=== PATIENT | female | born 1965 | race Caucasian/White ===

== ENCOUNTER → 2016-08-20 | Outpatient (CLI) | payer OTHER ==
[2016-08-20 10:19] LABS: CHLORIDE,CL 106 mmol/L (98-110); SODIUM,NA 138 mmol/L (136-146)
== END ==
LOC: MW.CHIM 09:08
PROVIDERS: ATTEND Internal Medicine
DX: R10.9 Unspecified abdominal pain (principal)
CPT/HCPCS: 36415; 80048; 85025; 86677

== ENCOUNTER → 2016-08-31 | Outpatient (CLI) | payer OTHER ==
[~2016-08-31] MED LIST: Iopamidol 755 MG/ML 500 ML Multipack Bottle IVPUSH STA
--- NOTE | 2016-08-31 15:42 | CT ---
CT of the abdomen and pelvis with contrast. HISTORY: Pain TECHNIQUE: Axial CT images were obtained of the abdomen and pelvis following administration of 100 m L of Isovue-370 in the right arm without complication. Coronal and sagittal reconstructions obtained . FINDINGS: The lungs are clear without focal consolidation. There is a 1.5 cm lobulated nodule within the media l right lower lobe, grossly unchanged in size. There is also a tiny subpleural nodule within the lef t lung base, stable. The liver has a mildly nodular contour, otherwise no focal irregularity. The spleen, adrenal glands, and pancreas appear normal. The gallbladder is unremarkable. There is no bulky retroperitoneal lymp hadenopathy or abdominal ascites. The kidneys enhance and function symmetrically without evidence of obstructive uropathy. The large and small bowel are normal in caliber without evidence of obstruction. The appendix appea rs normal. There is no pericolonic inflammation or stranding. There is no bulky pelvic lymphadenopat hy or free pelvic fluid. The urinary bladder is normal. The uterus appears normal. Postsurgical changes are noted within the lower lumbar spine. No suspicious osseous abnormalities de monstrated. IMPRESSION: 1. No acute findings demonstrated within the abdomen or pelvis. 2. Nodular appearing liver, correlate for cirrhosis. 3. Postsurgical changes noted within the lumbar spine. 4. Stable bilateral basilar pulmonary nodules.
--- NOTE | 2016-08-31 16:50 | MR ---
EXAMINATION: MR of the head without contrast. TECHNIQUE: Multiplanar and multisequence imaging of the head without intravenous contrast. Diffusion weighted sequences were performed. HISTORY: Dizziness. FINDINGS: The cerebral hemispheres and deep nuclei are without hemorrhage, mass, edema or atrophy. Small very subtle T2 FLAIR hyperintensities in the white matter likely small areas of chronic ischemia. No evid ence for restricted diffusion. No extraaxial collections or hemorrhage. The ventricular system is of normal size and configuration without hydrocephalus. The brainstem and cerebellum are without hemorrhage, mass, edema, gliosis or atrophy. The carotid basilar artery flow voids are intact. There is a trace fluid within the right mastoid ai r cells. No internal auditory canal or cerebellopontine angle masses. Paranasal sinuses are clear. The craniocervical junction is unremarkable without Chiari malformatio n. IMPRESSION: 1. No acute intracranial findings demonstrated. 2. Trace fluid within the right mastoid air cells, likely an effusion. 3. Minimal small vessel ischemic changes.
== END ==
LOC: MW.DI 11:33
PROVIDERS: ATTEND Internal Medicine
DX: R42 Dizziness and giddiness (principal); R20.0 Anesthesia of skin; Z98.890 Other specified postprocedural states; R91.1 Solitary pulmonary nodule
CPT/HCPCS: 74177; Q9967; 70551; 70551-26

== ENCOUNTER → 2016-09-03 | Outpatient (CLI) | payer OTHER | LOC: MW.CHIM 08:42 | PROVIDERS: ATTEND Internal Medicine | DX: R19.7 Diarrhea, unspecified (principal) | CPT/HCPCS: 83630; 87046; 87324; 87899 ==

== ENCOUNTER → 2016-09-14 | Outpatient (CLI) | payer OTHER ==
--- NOTE | 2016-09-15 09:42 | CR ---
EXAMINATION: Pelvis and bilateral hips HISTORY: Pain COMPARISON: CT abdomen and pelvis dated 08/31/2016 TECHNIQUE: AP pelvis and 2 views of the hips bilaterally. FINDINGS: There is no acute osseous abnormality, dislocation, or fracture. Bone mineralization and j oint spaces appear grossly preserved. Mild subchondral sclerosis and cystic changes noted within the acetabulum bilaterally. Degenerative changes are noted within the lower lumbar spine. SI joints are symmetric. Bone mineralization is normal. IMPRESSION: 1. Mild degenerative changes within the hips bilaterally without acute findings.
== END ==
LOC: MW.CHORTHO 07:50
PROVIDERS: ATTEND Orthopaedic Surgery
DX: M25.552 Pain in left hip (principal); M25.551 Pain in right hip
CPT/HCPCS: 73522; 73522-26

== ENCOUNTER → 2016-09-20 | Outpatient (CLI) | payer OTHER ==
[2016-09-20 16:02] LABS: CHLORIDE,CL 104 mmol/L (98-110); SODIUM,NA 141 mmol/L (136-146)
--- NOTE | 2016-09-20 16:47 | CR ---
EXAMINATION: Abdomen HISTORY: Pain COMPARISON: CT dated 08/31/2016. TECHNIQUE: AP and upright views of the abdomen. FINDINGS: There is a moderate amount of stool throughout the colon and rectum without evidence of a small bowel obstruction. No free air under the diaphragm. No abnormal calcifications project over th e kidneys. Bilateral posterior fusion hardware is noted from L4 to S1. The visualized osseous struct ures otherwise appear normal. IMPRESSION: Moderate amount of stool and gas throughout the colon consistent with constipation.
== END ==
LOC: MW.CHIM 15:21
PROVIDERS: ATTEND Internal Medicine
DX: R10.9 Unspecified abdominal pain (principal); R14.3 Flatulence
CPT/HCPCS: 36415; 74020; 74020-26; 80048; 82550; 83735

== ENCOUNTER → 2016-11-09 | Outpatient (CLI) | payer OTHER ==
--- NOTE | 2016-11-09 16:27 | US ---
EXAMINATION: Transabdominal pelvic ultrasound HISTORY: Pelvic and perineal pain COMPARISON: CT dated 08/31/2016 TECHNIQUE: Grayscale, color Doppler, spectral Doppler images obtained transabdominally. FINDINGS: The uterus appears normal in size, contour, and echogenicity without a focal uterine mass. The medial stripe thickness is not well characterized. No significant free pelvic fluid. Both the l eft and right ovaries are normal in size and contour demonstrating normal color and spectral Doppler flow. No obvious adnexal mass. IMPRESSION: 1. Grossly unremarkable transabdominal pelvic ultrasound.
== END ==
LOC: MW.US 13:17
PROVIDERS: ATTEND Internal Medicine
DX: R10.2 Pelvic and perineal pain (principal)
CPT/HCPCS: 76856; 76856-26

== ENCOUNTER 2017-07-23 19:35 | Emergency (ER) | payer OTHER ==
--- NOTE | 2017-07-23 20:01 | EDM.PDOC ---
ED HPI GENERAL MEDICAL PROBLEM - General Chief Complaint: Back Pain or Injury Stated Complaint: FALL/BACK PAIN Time Seen by Provider: 07/23/17 19:41 Source of Information: Reports: Patient History Limitations: Reports: No Limitations - History of Present Illness INITIAL COMMENTS - FREE TEXT/NARRATIVE: HISTORY AND PHYSICAL: History of present illness: Patient is a 52-year-old female who presents to the emergency room with complaints of low back pain, bilateral hip pain, and left shoulder pain post fall. She states last night she slipped and fell on the ice landing on her left side. Since that time has increasingly worsening pain in the left shoulder, bilateral hips and low back. She does have a history of lumbar spinal surgery, which she wears a brace for her daily. Took 2 tablets of Dallas at 4:30 this afternoon, left over from her surgery - which has helped somewhat. She denies hitting her head or any loss of consciousness. Review of systems: As per history of present illness and below otherwise all systems reviewed and negative. Past medical history: As per history of present illness and as reviewed below otherwise noncontributory. Surgical history: As per history of present illness and as reviewed below otherwise noncontributory. Social history: No reported history of drug or alcohol abuse. Family history: As per history of present illness and as reviewed below otherwise noncontributory. Physical exam: General: Well-developed and well-nourished 52-year-old female. Alert and oriented. Nontoxic appearing and in no acute distress HEENT: Atraumatic, normocephalic, pupils reactive, negative for conjunctival pallor or scleral icterus, mucous membranes moist, throat clear, neck supple, nontender, trachea midline. Lungs: Clear to auscultation, breath sounds equal bilaterally, chest nontender. Heart: S1S2, regular rate and rhythm Abdomen: Soft, nondistended, nontender. Negative for masses or hepatosplenomegaly. Negative for costovertebral tenderness. Pelvis: Stable nontender. Genitourinary: Deferred. Rectal: Deferred. C-spine/Back: No pinpoint vertebral tenderness upon palpation. Fully ambulatory. Extremities: Moves all extremities per self, pain with range of motion and palpation to the left shoulder. Neurovascular unremarkable. Neuro: Awake, alert, oriented. Cranial nerves II through XII unremarkable. Cerebellum unremarkable. Motor and sensory unremarkable throughout. Exam nonfocal. Patient does have Ultram, Flexeril, Dallas available to her for home use. 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 Imaging of the pelvis and left shoulder are negative. Cervical x-ray shows mild degenerative changes but nothing acute. Lumbar x-ray shows equipment in expected location. There is no radiographic evidence for complication. No soft tissue mass by plain film.Moderate constipation. Degenerative disc disease is most evident at L2-L3. Diagnostics: Xray of the pelvis, left shoulder, c-spine, lumbar spine Therapeutics: Ice Impression: #1 Fall #2 Back Pain #3 Contusion #4 Constipation Plan: 1. Please use the Dallas, Ultram, and Flexeril that you have prescribed for you. Ice to the area for the first 24 hours. Then may alternate heat/ice for comfort. Gentle stretching. Continue to wear your back brace for comfort and support. Avoid any vigorous activities which will cause increased pain. 2. Follow up with her primary care provider next week. Return to the ED as needed and as discussed. Definitive disposition and diagnosis as appropriate pending reevaluation and review of above. Duration: Day(s): Location: Reports: Back, Upper Extremity, Left lower back Pain Score (Numeric/FACES): 8 - Related Data Allergies Allergy/AdvReac Type Severity Reaction Status Date / Time amitriptyline Allergy Rash Verified 07/23/17 19:48 aspirin Allergy Nausea Verified 07/23/17 19:48 azithromycin Allergy Swelling Verified 07/23/17 19:48 [From Zithromax Z-Paul] ciprofloxacin Allergy Rash Verified 07/23/17 19:48 codeine Allergy Nausea Verified 07/23/17 19:48 erythromycin base Allergy Rash Verified 07/23/17 19:48 [Erythromycin Base] ibuprofen Allergy Nausea Verified 07/23/17 19:48 Penicillins Allergy Rash Verified 07/23/17 19:48 Sulfa (Sulfonamide Allergy Rash Verified 07/23/17 19:48 Antibiotics) tizanidine [Tizanidine] Allergy Rash Verified 07/23/17 19:48 Home Meds: Home Meds Albuterol [Ventolin HFA] 2 puff INH Q4H PRN 11/08/13 [History] Baclofen [Lioresal] 20 mg PO TID 11/08/13 [History] Cyclobenzaprine [Flexeril] 10 mg PO DAILY PRN 11/08/13 [History] Docusate Sodium [Dok] 100 mg PO ASDIRECTED PRN 11/08/13 [History] EPINEPHrine [Epipen] 0.3 mg IM ASDIRECTED PRN 11/08/13 [History] Gabapentin [Neurontin] 600 mg PO QID 11/08/13 [History] Multivitamin [Multivitamins] 1 each PO DAILY 11/08/13 [History] Promethazine [Phenergan] 0 mg PO ASDIRECTED PRN 11/08/13 [History] Rizatriptan [Maxalt] 10 mg PO ASDIRECTED PRN 11/08/13 [History] SUMAtriptan Succinate [Imitrex] 100 mg PO ASDIRECTED PRN 11/08/13 [History] Triamterene/Hydrochlorothiazid [Triamterene-HCTZ 75-50 MG] 1 each PO DAILY 11/08 [History] traMADol [Ultram ER] 100 mg PO Q4HR 11/08/13 [History] traZODone HCl [Trazodone HCl] 50 mg PO ASDIRECTED PRN 11/08/13 [History] Benzonatate [Tessalon Perle] 0 mg PO ASDIRECTED PRN 05/17/14 [History] Nitrofurantoin [place]/Macrocryst [Macrobid] 100 mg PO BID #10 cap 07/18/15 [Rx] Past Medical History HEENT History: Reports: Hard of Hearing Cardiovascular History: Reports: Hypertension Respiratory History: Reports: Bronchitis, Recurrent Other Gastrointestinal History: opoiod induced constipation Genitourinary History: Reports: UTI, Recurrent 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: Musculoskeletal History: Reports: Back Pain, Chronic, Fracture, Osteoarthritis Other Musculoskeletal History: fx lower back Neurological History: Reports: Cerebral Palsy, Concussion, Migraines Psychiatric History: Reports: Depression - Infectious Disease History Infectious Disease History: Reports: Chicken Pox, Hepatitis C, Measles - Past Surgical History HEENT Surgical History: Reports: None Cardiovascular Surgical History: Reports: None Respiratory Surgical History: Reports: None GI Surgical History: Reports: None Female Surgical History: Reports: Section Neurological Surgical History: Reports: None Musculoskeletal Surgical History: Reports: None Social & Family History - Family History Family Medical History: Noncontributory - Tobacco Use Smoking Status *Q: Current Every Day Smoker Years of Tobacco use: 1 Packs/Tins Daily: 0.5 - Caffeine Use Caffeine Use: Reports: Coffee - Alcohol Use Days Per Week of Alcohol Use: 6 Number of Drinks Per Day: 1 Total Drinks Per Week: 6 - Recreational Drug Use Recreational Drug Use: No ED ROS GENERAL - Review of Systems Review Of Systems: ROS reveals no pertinent complaints other than HPI. ED EXAM,LOWER BACK PAIN/INJURY - Physical Exam Exam: See Below (See dictation) Course - Vital Signs Last Recorded V/S: Last Vital Signs Temp 96.8 F 07/23/17 19:44 Pulse 105 H 07/23/17 19:44 Resp 19 07/23/17 19:44 BP 120/69 07/23/17 19:44 Pulse Ox 97 07/23/17 19:44 - Orders/Labs/Meds Orders: Active Orders 24 hr Category Date Time Status Cervical Spine 2V or 3V [CR] Stat Exams 07/23/17 19:53 Taken Lumbar Spine 2 or 3V [CR] Stat Exams 07/23/17 19:53 Taken Pelvis 1V or 2V [CR] Stat Exams 07/23/17 19:53 Taken Shoulder Comp Lt [CR] Stat Exams 07/23/17 19:53 Taken Departure - Departure Time of Disposition: 21:14 Disposition: Home, Self-Care 01 Clinical Impression: Fall Qualifiers: Encounter type: initial encounter Qualified Code(s): W19.XXXA - Unspecified fall, initial encounter Contusion Qualifiers: Encounter type: initial encounter Contusion area: lower back Qualified Code(s) : S30.0XXA - Contusion of lower back and pelvis, initial encounter Back pain Qualifiers: Back pain location: low back pain Chronicity: unspecified Back pain laterality : midline Sciatica presence: without sciatica Qualified Code(s): M54.5 - Low back pain Constipation Qualifiers: Constipation type: unspecified constipation type Qualified Code(s): K59.00 - Constipation, unspecified - Discharge Information Referrals: PCP,None [Primary Care Provider] - Forms: ED Department Discharge Additional Instructions: My general discharge The following information is given to patients seen in the emergency department who are being discharged to home. This information is to outline your options for follow-up care. We provide all patients seen in our emergency department with a follow-up referral. The need for follow-up, as well as the timing and circumstances, are variable depending upon the specifics of your emergency department visit. If you don't have a primary care physician on staff, we will provide you with a referral. We always advise you to contact your personal physician following an emergency department visit to inform them of the circumstance of the visit and for follow-up with them and/or the need for any referrals to a consulting specialist. The emergency department will also refer you to a specialist when appropriate. This referral assures that you have the opportunity for follow-up care with a specialist. All of these measure are taken in an effort to provide you with optimal care, which includes your follow-up. Under all circumstances we always encourage you to contact your private physician who remains a resource for coordinating your care. When calling for follow-up care, please make the office aware that this follow-up is from your recent emergency room visit. If for any reason you are refused follow-up, please contact the [facility] Emergency Department at and asked to speak to the emergency department charge nurse. [facility] [address] [place] [address] 1. Please use the Dallas, Ultram, and Flexeril that you have prescribed for you. Ice to the area for the first 24 hours. Then may alternate heat/ice for comfort. Gentle stretching. Continue to wear your back brace for comfort and support. Avoid any vigorous activities which will cause increased pain. 2. Follow up with her primary care provider next week. Return to the ED as needed and as discussed. - My Orders Last 24 Hours: My Active Orders 07/23/17 19:53 Cervical Spine 2V or 3V [CR] Stat Lumbar Spine 2 or 3V [CR] Stat Pelvis 1V or 2V [CR] Stat Shoulder Comp Lt [CR] Stat - Assessment/Plan Last 24 Hours: My Active Orders 07/23/17 19:53 Cervical Spine 2V or 3V [CR] Stat Lumbar Spine 2 or 3V [CR] Stat Pelvis 1V or 2V [CR] Stat Shoulder Comp Lt [CR] Stat
[2017-07-23 22:06] VITALS: BP 169/80
--- NOTE | 2017-07-25 15:05 | CR ---
EXAM DATE: 07/23/17 PATIENT'S AGE: 52 Patient: AUGUSTUS PATTON Facility: [place], [place] Site . Site : 1965 Study: XRay Shoulder Left [id number]/3/2018 8:34:39 PM Ordering Physician: Doctor Tomlin Final Report: INDICATION: fall INDICATION: Fall. TECHNIQUE: Left shoulder, three views. COMPARISON: None FINDINGS: Bones: Alignment is normal. No fractures or bone lesions. Joint spaces: Unremarkable. Soft tissues: Unremarkable. IMPRESSION: 1. No acute bone abnormality. 2. No dislocation on the transscapular Y radiograph. 3. No displaced rib fracture or pneumothorax. Dictated by Garrison Hanley MD @ 07/23/2017 8:50:39 PM Dictated by: Garrison Hanley MD @ 07/23/2017 20:50:45 (Electronic Signature) Report Signed by Proxy. MTDElza
--- NOTE | 2017-07-25 15:11 | CR ---
EXAM DATE: 07/23/17 PATIENT'S AGE: 52 Patient: AUGUSTUS PATTON Facility: [place], [place] Site . Site : 1965 Study: XRay Spine Cervical [id number]/3/2018 8:35:23 PM Ordering Physician: Doctor Tomlin Final Report: INDICATION: Fall. COMPARISON: None. FINDINGS/IMPRESSION: No fracture, malalignment, or other definite acute abnormalities identified in the cervical spine. Postoperative changes of anterior cervical fusion at C6-7. Scattered mild degenerative changes. Unremarkable prevertebral soft tissues. Dictated by Mata Nix MD @ 07/23/2017 9:04:55 PM Dictated by: Mata Nix MD @ 07/23/2017 21:05:41 (Electronic Signature) Report Signed by Proxy. LEONOR
--- NOTE | 2017-07-25 15:16 | CR ---
EXAM DATE: 07/23/17 PATIENT'S AGE: 52 Patient: AUGUSTUS PATTON Facility: [place], [place] Site . Site : 1965 Study: XRay Spine Lumbar [id number]/3/2018 8:37:14 PM Ordering Physician: Doctor Tomlin Final Report: INDICATION: fall HISTORY: Fall. COMPARISON: 04/18/2012. TECHNIQUE: Lumbar spine, 3 views. FINDINGS: Five lumbar type vertebral bodies are demonstrated on this exam. Postoperative changes of a spinal fusion from L4 through S1. Transpedicular screws, interconnecting rods, and interbody spacers are in expected location. There is no radiographic evidence for complication. No soft tissue mass by plain film. There are no suspicious calcifications. Moderate constipation. Degenerative disc disease is most evident at L2-L3. IMPRESSION: 1. No acute bone abnormality. 2. Postoperative changes of a spinal fusion from L4 through S1. Alignment is anatomic. Dictated by Garrison Hanley MD @ 07/23/2017 9:20:49 PM Dictated by: Garrison Hanley MD @ 07/23/2017 21:20:55 (Electronic Signature) Report Signed by Proxy. [facility] HOSPITALElza
--- NOTE | 2017-07-25 15:17 | CR ---
EXAM DATE: 07/23/17 PATIENT'S AGE: 52 Patient: AUGUSTUS PATTON Facility: [place], [place] Site . Site : 1965 Study: XRay Pelvis [id number]/3/2018 8:37:44 PM Ordering Physician: Doctor Tomlin Final Report: INDICATION: fall PELVIS Comparison: No previous studies are currently available for comparison. No fractures or destructive lesions of bone are identified. No hip dislocation is evident. No significant hip arthritic changes are demonstrated. Postop changes are seen in the lower lumbar spine. Included soft tissues show no significant findings. IMPRESSION: No significant abnormality identified. HANNA EDWARDS MD [employer] Dictated by: Mata Edwards MD @ 07/23/2017 20:54:22 (Electronic Signature) Report Signed by Proxy. [facility]
== END 2017-07-23 22:15 | disposition home or self-care (01) ==
LOC: MW.ED 19:35
DX: S30.0XXA Contusion of lower back and pelvis, initial encounter (principal); K59.00 Constipation, unspecified; I10 Essential (primary) hypertension; F17.210 Nicotine dependence, cigarettes, uncomplicated; Z88.6 Allergy status to analgesic agent; Z88.1 Allergy status to other antibiotic agents; Z88.5 Allergy status to narcotic agent; Z88.0 Allergy status to penicillin; Z88.2 Allergy status to sulfonamides; Z88.8 Allergy status to other drugs, medicaments and biological substances; Z79.899 Other long term (current) drug therapy; W00.9XXA Unspecified fall due to ice and snow, initial encounter
CPT/HCPCS: 72040; 72040-26; 72100; 72100-26; 72170; 72170-26; 73030-26-LT; 73030-LT; 99283

== ENCOUNTER 2018-08-03 07:35 | Emergency (ER) | payer OTHER, MEDICAID ==
[2018-08-03] MEDS ORDERED: HYDROmorphone 2 MG/ML SDV IM ONE (08:01)
[2018-08-03] MEDS ORDERED: HYDROmorphone 1 MG/ML Syringe IM ONE (08:06)
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
[2018-08-03] MEDS ORDERED: LORazepam 1 MG Tab PO ONE (08:42)
[2018-08-03 09:22] LABS: CHLORIDE,CL 105 mmol/L (98-107); SODIUM,NA 140 mmol/L (136-145)
[2018-08-03 11:16] VITALS: BP 109/57
== END 2018-08-03 10:46 | disposition home or self-care (01) ==
LOC: MW.ED 07:35
DX: M62.838 Other muscle spasm (principal); I10 Essential (primary) hypertension; G80.9 Cerebral palsy, unspecified; Z88.1 Allergy status to other antibiotic agents; Z88.5 Allergy status to narcotic agent; Z88.2 Allergy status to sulfonamides; Z79.899 Other long term (current) drug therapy
CPT/HCPCS: 36415; 80053; 81001; 83605; 85025; 96372; 99283; A9270; J1170

== ENCOUNTER 2018-08-05 20:48 | Inpatient (IN) | payer OTHER, MEDICAID ==
[2018-08-05] MEDS ORDERED: Sodium Chloride 0.9% 1,000 ML IV ONE (20:53)
--- NOTE | 2018-08-05 20:55 | EDM.PDOC ---
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 Past medical history: As per history of present illness and as reviewed below otherwise noncontributory. Surgical history: As per history of present illness and as reviewed below otherwise noncontributory. Social history: No reported history of drug or alcohol abuse. Family history: As per history of present illness and as reviewed below otherwise noncontributory. Physical exam: HEENT: Atraumatic, normocephalic, pupils reactive, negative for conjunctival pallor or scleral icterus, mucous membranes moist, throat clear, neck supple, nontender, trachea midline. Lungs: Clear to auscultation, breath sounds equal bilaterally, chest nontender. Heart: S1S2, regular, negative for clicks, rubs, or JVD. Abdomen: Soft, nondistended, nontender. Negative for masses or hepatosplenomegaly. Negative for costovertebral tenderness. Pelvis: Stable nontender. Genitourinary: Deferred. Rectal: Deferred. Extremities: Atraumatic, negative for cords or calf pain. Neurovascular unremarkable. Neuro: Awake, alert, oriented. Cranial nerves II through XII unremarkable. Cerebellum unremarkable. Motor and sensory unremarkable throughout. Exam nonfocal. Diagnostics: [BC CMP UA troponin chest [address] no contrast drug screen ] Therapeutics: [] 1 25 mL per hour Rocephin gram IV Impression: [] UTI Medication side effects-hallucination/ agitation chronic history of baseline Definitive disposition and diagnosis as appropriate pending reevaluation and review of above. - Related Data Allergies Allergy/AdvReac Type Severity Reaction Status Date / Time amitriptyline Allergy Rash Verified 08/05/18 20:56 aspirin Allergy Nausea Verified 08/05/18 20:56 azithromycin Allergy Swelling Verified 08/05/18 20:56 [From Zithromax Z-Paul] ciprofloxacin Allergy Rash Verified 08/05/18 20:56 codeine Allergy Nausea Verified 08/05/18 20:56 erythromycin base Allergy Rash Verified 08/05/18 20:56 [Erythromycin Base] ibuprofen Allergy Nausea Verified 08/05/18 20:56 Penicillins Allergy Rash Verified 08/05/18 20:56 Sulfa (Sulfonamide Allergy Rash Verified 08/05/18 20:56 Antibiotics) tizanidine [Tizanidine] Allergy Rash Verified 08/05/18 20:56 Home Meds: Home Meds Baclofen 10 mg PO TID 08/03/18 [History] Escitalopram [Lexapro] 1 tab DAILY 08/03/18 [History] Gabapentin [Neurontin] 800 mg PO QID 08/03/18 [History] Hydrocodone/Acetaminophen [Hydrocodon-Acetaminophn 10-325] 1 tab PO Q4H PRN [History] Meloxicam 15 mg PO DAILY 08/03/18 [History] Metaxalone [Metaxall] 800 mg PO QID PRN 08/03/18 [History] Pantoprazole Sodium [Protonix] 20 mg PO DAILY 08/03/18 [History] Promethazine [Phenergan] 25 mg PO Q4H PRN 08/03/18 [History] hydrOXYzine HCl [Atarax] 25 mg PO QID PRN 08/03/18 [History] oxyCODONE ER [OxyCONTIN] 10 mg PO BID 08/03/18 [History] oxyCODONE HCl [Oxycontin] 15 mg PO BID 08/03/18 [History] traMADol [Ultram] 100 mg PO Q6H PRN 08/03/18 [History] Past Medical History HEENT History: Reports: Hard of Hearing Cardiovascular History: Reports: Hypertension Respiratory History: Reports: Bronchitis, Recurrent Other Gastrointestinal History: opoiod induced constipation Genitourinary History: Reports: UTI, Recurrent [employer]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: Musculoskeletal History: Reports: Back Pain, Chronic, Fracture, Osteoarthritis Other Musculoskeletal History: fx lower back Neurological History: Reports: Cerebral Palsy, Concussion, Migraines, Neuropathy , Peripheral Psychiatric History: Reports: Depression - Infectious Disease History Infectious Disease History: Reports: Chicken Pox, Hepatitis C, Measles - Past Surgical History HEENT Surgical History: Reports: None Cardiovascular Surgical History: Reports: None Respiratory Surgical History: Reports: None GI Surgical History: Reports: None Female Surgical History: Reports: Section Neurological Surgical History: Reports: None Musculoskeletal Surgical History: Reports: None, Arthroscopic Procedure, Hip Replacement, Other (See Below) Other Musculoskeletal Surgeries/Procedures:: quadrapeligic Social & Family History - Family History Family Medical History: Noncontributory - Caffeine Use Caffeine Use: Reports: Coffee ED ROS GENERAL - Review of Systems Review Of Systems: See Below ED EXAM, GENERAL - Physical Exam Exam: See Below Course - Vital Signs Last Recorded V/S: Last Vital Signs Temp 97 F 08/05/18 20:48 Pulse 75 08/05/18 22:29 Resp 18 08/05/18 22:29 BP 120/82 08/05/18 22:29 Pulse Ox 98 08/05/18 22:29 - Orders/Labs/Meds Orders: Active Orders 24 hr Category Date Time Status CULTURE URINE [RM] Stat Lab 08/05/18 21:30 Received Sodium Chloride 0.9% [Normal Saline] 1,000 ml Med 08/06/18 00:15 Active IV STAT cefTRIAXone [Rocephin in Dextrose,Iso-Osm 1 GM/50 ML] 1 Med 08/06/18 00:15 Active gm Premix Bag 1 bag IV ONETIME Medication Orders Ceftriaxone Sodium/Dextrose 1 (gm/ Premix) 50 mls @ 100 mls/hr IV ONETIME ONE Stop: 08/06/18 00:44 Sodium Chloride (Normal Saline) 1,000 mls @ 125 mls/hr IV STAT ZACKARY Labs: Laboratory Tests 08/05/18 08/05/18 08/05/18 Range/Units 21:12 21:12 21:30 WBC 9.04 (4.0-11.0) K/uL RBC 4.65 (4.30-5.90) M/uL Hgb 14.3 (12.0-16.0) g/dL Hct 41.9 (36.0-46.0) % MCV 90.1 (80.0-98.0) fL MCH 30.8 (27.0-32.0) pg MCHC 34.1 (31.0-37.0) g/dL RDW Std Deviation 42.8 (28.0-62.0) fl RDW Coeff of Ros 13 (11.0-15.0) % Plt Count 133 L (150-400) K/uL MPV 9.10 (7.40-12.00) fL Neut % (Auto) 44.3 L (48.0-80.0) % Lymph % (Auto) 43.4 H (16.0-40.0) % [place] % (Auto) 9.2 (0.0-15.0) % Eos % (Auto) 2.7 (0.0-7.0) % Baso % (Auto) 0.4 (0.0-1.5) % Neut # (Auto) 4.0 (1.4-5.7) K/uL Lymph # (Auto) 3.9 H (0.6-2.4) K/uL [place] # (Auto) 0.8 (0.0-0.8) K/uL Eos # (Auto) 0.2 (0.0-0.7) K/uL Baso # (Auto) 0.0 (0.0-0.1) K/uL Nucleated RBC % 0.0 /100WBC Nucleated RBCs # 0 K/uL Sodium 140 (136-145) mmol/L Potassium 3.5 (3.5-5.1) mmol/L Chloride 106 (98-107) mmol/L Carbon Dioxide 23.3 (21.0-32.0) mmol/L BUN 22 H (7.0-18.0) mg/dL Creatinine 0.9 (0.6-1.0) mg/dL Est Cr Clr Drug Dosing TNP Estimated GFR (MDRD) > 60.0 ml/min Glucose 111 H (74-106) mg/dL Calcium 9.6 (8.5-10.1) mg/dL Total Bilirubin 0.5 (0.2-1.0) mg/dL AST 23 (15-37) IU/L ALT 14 (14-63) IU/L Alkaline Phosphatase 71 (46-116) U/L Troponin I < 0.050 (0.000-0.056) ng/mL Total Protein 7.5 (6.4-8.2) g/dL Albumin 3.5 (3.4-5.0) g/dL Globulin 4.0 (2.6-4.0) g/dL Albumin/Globulin Ratio 0.9 (0.9-1.6) Lipase 136 (73-393) U/L Urine Color DARK YELLOW Urine Appearance SLT CLOUDY Urine pH 5.0 (5.0-8.0) Ur Specific [place] >= 1.030 (1.001-1.035) Urine Protein TRACE H (NEGATIVE) mg/dL Urine Glucose (UA) NEGATIVE (NEGATIVE) mg/dL Urine Ketones TRACE H (NEGATIVE) mg/dL Urine Occult Blood NEGATIVE (NEGATIVE) Urine Nitrite POSITIVE H (NEGATIVE) Urine Bilirubin SMALL H (NEGATIVE) Urine Ictotest NEGATIVE Urine Urobilinogen 1.0 (<2.0) EU/dL Ur Leukocyte Esterase TRACE H (NEGATIVE) Urine RBC 1-2 (0-2/HPF) Urine WBC 5-7 (0-5/HPF) Ur Epithelial Cells FEW (NONE-FEW) Urine Bacteria 3+ H (NEGATIVE) Urine Opiates Screen (NEGATIVE) Ur Oxycodone Screen (NEGATIVE) Urine Methadone Screen (NEGATIVE) Ur Barbiturates Screen (NEGATIVE) Ur Phencyclidine Scrn (NEGATIVE) Ur Amphetamine Screen (NEGATIVE) U Methamphetamines Scrn (NEGATIVE) U Benzodiazepines Scrn (NEGATIVE) U Cocaine Metab Screen (NEGATIVE) U Marijuana (THC) Screen (NEGATIVE) 08/05/18 Range/Units 21:30 WBC (4.0-11.0) K/uL RBC (4.30-5.90) M/uL Hgb (12.0-16.0) g/dL Hct (36.0-46.0) % MCV (80.0-98.0) fL MCH (27.0-32.0) pg MCHC (31.0-37.0) g/dL RDW Std Deviation (28.0-62.0) fl RDW Coeff of Ros (11.0-15.0) % Plt Count (150-400) K/uL MPV (7.40-12.00) fL Neut % (Auto) (48.0-80.0) % Lymph % (Auto) (16.0-40.0) % [place] % (Auto) (0.0-15.0) % Eos % (Auto) (0.0-7.0) % Baso % (Auto) (0.0-1.5) % Neut # (Auto) (1.4-5.7) K/uL Lymph # (Auto) (0.6-2.4) K/uL [place] # (Auto) (0.0-0.8) K/uL Eos # (Auto) (0.0-0.7) K/uL Baso # (Auto) (0.0-0.1) K/uL Nucleated RBC % /100WBC Nucleated RBCs # K/uL Sodium (136-145) mmol/L Potassium (3.5-5.1) mmol/L Chloride (98-107) mmol/L Carbon Dioxide (21.0-32.0) mmol/L BUN (7.0-18.0) mg/dL Creatinine (0.6-1.0) mg/dL Est Cr Clr Drug Dosing Estimated GFR (MDRD) ml/min Glucose (74-106) mg/dL Calcium (8.5-10.1) mg/dL Total Bilirubin (0.2-1.0) mg/dL AST (15-37) IU/L ALT (14-63) IU/L Alkaline Phosphatase (46-116) U/L Troponin I (0.000-0.056) ng/mL Total Protein (6.4-8.2) g/dL Albumin (3.4-5.0) g/dL Globulin (2.6-4.0) g/dL Albumin/Globulin Ratio (0.9-1.6) Lipase (73-393) U/L Urine Color Urine Appearance Urine pH (5.0-8.0) Ur Specific [place] (1.001-1.035) Urine Protein (NEGATIVE) mg/dL Urine Glucose (UA) (NEGATIVE) mg/dL Urine Ketones (NEGATIVE) mg/dL Urine Occult Blood (NEGATIVE) Urine Nitrite (NEGATIVE) Urine Bilirubin (NEGATIVE) Urine Ictotest Urine Urobilinogen (<2.0) EU/dL Ur Leukocyte Esterase (NEGATIVE) Urine RBC (0-2/HPF) Urine WBC (0-5/HPF) Ur Epithelial Cells (NONE-FEW) Urine Bacteria (NEGATIVE) Urine Opiates Screen POSITIVE (NEGATIVE) Ur Oxycodone Screen POSITIVE (NEGATIVE) Urine Methadone Screen NEGATIVE (NEGATIVE) Ur Barbiturates Screen NEGATIVE (NEGATIVE) Ur Phencyclidine Scrn NEGATIVE (NEGATIVE) Ur Amphetamine Screen NEGATIVE (NEGATIVE) U Methamphetamines Scrn NEGATIVE (NEGATIVE) U Benzodiazepines Scrn POSITIVE (NEGATIVE) U Cocaine Metab Screen NEGATIVE (NEGATIVE) U Marijuana (THC) Screen NEGATIVE (NEGATIVE) Meds: Medications Generic Name Dose Route Start Last Admin Trade Name Freq PRN Reason Stop Dose Admin Ceftriaxone Sodium/Dextrose 1 50 mls @ 100 mls/hr 08/06/18 00:15 gm/ Premix IV 08/06/18 00:44 ONETIME ONE Sodium Chloride 1,000 mls @ 125 mls/hr 08/06/18 00:15 Normal Saline IV STAT ZACKARY Discontinued Medications Generic Name Dose Route Start Last Admin Trade Name Freq PRN Reason Stop Dose Admin Sodium Chloride 1,000 mls @ 999 mls/hr 08/05/18 20:53 08/05/18 21:09 Normal Saline IV 08/05/18 21:53 999 mls/hr STAT ONE Administration Lorazepam 1 mg 08/05/18 20:56 08/05/18 21:12 Ativan IVPUSH 08/05/18 20:57 1 mg ONETIME ONE Administration Departure - Departure Time of Disposition: 00:26 Disposition: Admitted As Inpatient 66 Condition: Fair Clinical Impression: UTI (urinary tract infection), Agitation - Discharge Information Forms: ED Department Discharge - My Orders Last 24 Hours: My Active Orders 08/05/18 21:30 CULTURE URINE [RM] Stat 08/06/18 00:15 Sodium Chloride 0.9% [Normal Saline] 1,000 ml IV STAT cefTRIAXone [Rocephin in Dextrose,Iso-Osm 1 GM/50 ML] 1 gm Premix Bag 1 bag IV ONETIME - Assessment/Plan Last 24 Hours: My Active Orders 08/05/18 21:30 CULTURE URINE [RM] Stat 08/06/18 00:15 Sodium Chloride 0.9% [Normal Saline] 1,000 ml IV STAT cefTRIAXone [Rocephin in Dextrose,Iso-Osm 1 GM/50 ML] 1 gm Premix Bag 1 bag IV ONETIME
[2018-08-05] MEDS ORDERED: LORazepam 2 MG/ML SDV IVPUSH ONE (20:56)
[2018-08-05 21:46] LABS: CHLORIDE,CL 106 mmol/L (98-107); SODIUM,NA 140 mmol/L (136-145)
--- NOTE | 2018-08-05 22:49 | CR ---
INDICATIONS: Chest pain, shortness of breath. COMPARISON: 05/20/2017. FINDINGS: Heart mediastinum are within normal limits for technique. Pulmonary vessels are not enlarged. No evidence of pneumothorax. Lungs are clear and are stable. Impression : No acute process demonstrated on this single portable chest radiograph. Dictated by Blake Quinteros MD @ Aug 05 2018 10:46PM Signed by Dr. Blake Quinteros @ Aug 05 2018 10:47PM
--- NOTE | 2018-08-05 23:24 | CT ---
INDICATION: headache TECHNIQUE: CT Head without i.v. contrast. COMPARISON: None FINDINGS: CSF space: The ventricles are normal for age. Brain: No evidence of mass, acute infarction or hemorrhage is seen. No mass-effect or midline shift is seen. The brain parenchyma is otherwise normal in appearance with preservation of the dale-white matter junction. Calvarium: The visualized paranasal sinuses are well aerated. The mastoid air cells are clear. The visualized orbits are grossly unremarkable. The calvarium is unremarkable in appearance with no fractures identified. IMPRESSION: 1. No evidence of acute infarction, intracranial hemorrhage, or mass-effect seen. Please note that all CT scans at this facility use dose modulation, iterative reconstruction, and/or weight-based dosing when appropriate to reduce radiation dose to as low as reasonably achievable. Dictated by: Martinez Eagle MD @ 08/05/2018 23:24:11 (Electronically Signed)
[2018-08-06] MEDS ORDERED: cefTRIAXone 1 GM in Premix Bag 1 BAG IV ONE (00:15)
[2018-08-06] MEDS ORDERED: Sodium Chloride 0.9% 1,000 ML IV SCH (00:15)
[2018-08-06] MEDS: Sodium Chloride 0.9% 1,000 ML IV SCH ×3 (01:45→20:18)
[2018-08-06] MEDS: Morphine 2 MG/ML Syringe IVPUSH PRN ×2 (06:36→08:22)
[2018-08-06 07:30] LABS: CHLORIDE,CL 108 mmol/L (98-107); SODIUM,NA 141 mmol/L (136-145)
[2018-08-06] MEDS ORDERED: Acetaminophen/HYDROcodone 325-10 MG Tab PO PRN (09:31)
[2018-08-06] MEDS: Gabapentin 800 MG Tab PO SCH ×4 (10:50→23:35)
[2018-08-06] MEDS: Nicotine 14 MG/24 Hr Patch TRDERM SCH (10:50)
[2018-08-06] MEDS ORDERED: Rizatriptan Benzoate [Rizatriptan] 10 MG PO PRN (12:34)
[2018-08-06] MEDS: Escitalopram 10 MG Tab PO SCH (13:26)
[2018-08-06] MEDS: oxyCODONE ER 20 MG TAB.ER PO SCH ×2 (13:26→20:16)
[2018-08-06] MEDS: Meloxicam 7.5 MG Tab PO SCH (13:27)
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
[2018-08-06] MEDS: Heparin Sodium 5,000 Units/ML Vial SUBCUT SCH ×2 (15:24→23:33)
[2018-08-06] MEDS: Promethazine 25 MG Tab PO PRN (20:17)
[2018-08-06] MEDS: cefTRIAXone 1 GM in Premix Bag 1 BAG IV SCH (23:32)
[2018-08-06] MEDS: hydrOXYzine HCl 25 MG Tab PO PRN (23:33)
[2018-08-07] MEDS: Sodium Chloride 0.9% 1,000 ML IV SCH ×3 (04:55→23:38)
[2018-08-07] MEDS: Gabapentin 800 MG Tab PO SCH ×4 (05:31→23:34)
[2018-08-07] MEDS: Heparin Sodium 5,000 Units/ML Vial SUBCUT SCH ×3 (05:31→21:32)
[2018-08-07 07:08] LABS: CHLORIDE,CL 110 mmol/L (98-107); SODIUM,NA 142 mmol/L (136-145)
[2018-08-07] MEDS: oxyCODONE ER 20 MG TAB.ER PO SCH ×2 (08:45→21:28)
[2018-08-07] MEDS: Nicotine 14 MG/24 Hr Patch TRDERM SCH (08:46)
[2018-08-07] MEDS: Meloxicam 7.5 MG Tab PO SCH (08:47)
[2018-08-07] MEDS: Pantoprazole 40 MG Tab.CR PO SCH (08:48)
[2018-08-07] MEDS: Escitalopram 10 MG Tab PO SCH (08:48)
[2018-08-07] MEDS: Acetaminophen/HYDROcodone 325-10 MG Tab PO PRN ×2 (12:11→23:42)
--- NOTE | 2018-08-07 12:21 | PCM.PN ---
- General Info Date of Service: 08/07/18 Subjective Update: Patient stated that she feels better than yesterday. Laying in bed does not appear to be in any acute distress at the moment. - Patient Data Vitals - Most Recent: Last Vital Signs Temp 36.1 C 08/07/18 07:31 Pulse 82 08/07/18 07:31 Resp 16 08/07/18 07:31 BP 131/69 08/07/18 07:31 Pulse Ox 97 08/07/18 07:31 Weight - Most Recent: 82 kg I&O - Last 24 Hours: Intake & Output 08/06/18 08/07/18 08/07/18 22:59 06:59 14:59 Intake Total [id number] Balance [id number] Lab Results Last 24 Hours: Laboratory Results - last 24 hr 08/07/18 08/07/18 Range/Units 06:25 06:25 WBC 4.52 (4.0-11.0) K/uL RBC 4.32 (4.30-5.90) M/uL Hgb 13.3 (12.0-16.0) g/dL Hct 39.3 (36.0-46.0) % MCV 91.0 (80.0-98.0) fL MCH 30.8 (27.0-32.0) pg MCHC 33.8 (31.0-37.0) g/dL RDW Std Deviation 43.0 (28.0-62.0) fl RDW Coeff of Ros 13 (11.0-15.0) % Plt Count 100 L (150-400) K/uL MPV 9.30 (7.40-12.00) fL Neut % (Auto) 40.0 L (48.0-80.0) % Lymph % (Auto) 46.5 H (16.0-40.0) % [place] % (Auto) 8.0 (0.0-15.0) % Eos % (Auto) 4.6 (0.0-7.0) % Baso % (Auto) 0.9 (0.0-1.5) % Neut # (Auto) 1.8 (1.4-5.7) K/uL Lymph # (Auto) 2.1 (0.6-2.4) K/uL [place] # (Auto) 0.4 (0.0-0.8) K/uL Eos # (Auto) 0.2 (0.0-0.7) K/uL Baso # (Auto) 0.0 (0.0-0.1) K/uL Nucleated RBC % 0.0 /100WBC Nucleated RBCs # 0 K/uL Sodium 142 (136-145) mmol/L Potassium 3.8 (3.5-5.1) mmol/L Chloride 110 H (98-107) mmol/L Carbon Dioxide 24.1 (21.0-32.0) mmol/L BUN 14 (7.0-18.0) mg/dL Creatinine 0.6 (0.6-1.0) mg/dL Est Cr Clr Drug Dosing TNP Estimated GFR (MDRD) > 60.0 ml/min Glucose 91 (74-106) mg/dL Calcium 9.0 (8.5-10.1) mg/dL Chace Results Last 24 Hours: Microbiology 08/05/18 21:30 Urine Culture - Final Urine, Clean Catch Escherichia Coli Med Orders - Current: Current Medications Hydrocodone Bitart/Acetaminophen ([place] 325-10 Mg) 1 tab PO Q8H PRN PRN Reason: Pain Last Admin: 08/07/18 12:11 Dose: 1 tab Escitalopram Oxalate (Lexapro) 20 mg PO DAILY [facility] Last Admin: 08/07/18 08:48 Dose: 20 mg Gabapentin (Neurontin) 800 mg PO QID [facility] Last Admin: 08/07/18 12:08 Dose: 800 mg Heparin Sodium (Porcine) (Heparin Sodium) 5,000 units SUBCUT Q8H [facility] Last Admin: 08/07/18 05:31 Dose: 5,000 units Hydroxyzine HCl (Atarax) 25 mg PO QID PRN PRN Reason: Anxiety Last Admin: 08/06/18 23:33 Dose: 25 mg Sodium Chloride (Normal Saline) 1,000 mls @ 125 mls/hr IV ASDIRECTED [facility] Last Admin: 08/07/18 04:55 Dose: 125 mls/hr Ceftriaxone Sodium/Dextrose 1 (gm/ Premix) 50 mls @ 100 mls/hr IV Q24H [facility] Last Admin: 08/06/18 23:32 Dose: 100 mls/hr Meloxicam (Mobic) 15 mg PO DAILY [facility] Last Admin: 08/07/18 08:47 Dose: 15 mg Metaxalone (Skelaxin) 400 mg PO QID PRN PRN Reason: pain Last Admin: 08/06/18 20:16 Dose: 400 mg Morphine Sulfate (Morphine) 2 mg IVPUSH Q2H PRN PRN Reason: Pain (severe 7-10) Last Admin: 08/06/18 08:22 Dose: 2 mg Nicotine (Habitrol) 14 mg TRDERM DAILY [facility] Last Admin: 08/07/18 08:46 Dose: 14 mg Oxycodone HCl (Oxycontin) 20 mg PO BID [facility] Last Admin: 08/07/18 08:45 Dose: 20 mg Pantoprazole Sodium (Protonix) 40 mg PO ACBREAKFAST [facility] Last Admin: 08/07/18 08:48 Dose: 40 mg Rizatriptan Benzoate ([Rizatriptan] 10 Mg) 1 each PO ASDIRECTED PRN PRN Reason: migraine Promethazine HCl (Phenergan) 25 mg PO Q4H PRN PRN Reason: Nausea Last Admin: 08/06/18 20:17 Dose: 25 mg Discontinued Medications Hydrocodone Bitart/Acetaminophen ([place] 325-10 Mg) 1 tab PO Q4H PRN PRN Reason: Pain Last Admin: 08/06/18 23:33 Dose: 1 tab Sodium Chloride (Normal Saline) 1,000 mls @ 999 mls/hr IV STAT ONE Stop: 08/05/18 21:53 Last Admin: 08/05/18 21:09 Dose: 999 mls/hr Ceftriaxone Sodium/Dextrose 1 (gm/ Premix) 50 mls @ 100 mls/hr IV ONETIME ONE Stop: 08/06/18 00:44 Last Admin: 08/06/18 00:33 Dose: 100 mls/hr Sodium Chloride (Normal Saline) 1,000 mls @ 125 mls/hr IV STAT [facility] Last Admin: 08/06/18 00:35 Dose: 125 mls/hr Lorazepam (Ativan) 1 mg IVPUSH ONETIME ONE Stop: 08/05/18 20:57 Last Admin: 08/05/18 21:12 Dose: 1 mg - Exam General: Alert, Oriented, Cooperative Lungs: Clear to Auscultation, Normal Respiratory Effort Cardiovascular: Regular Rate, Regular Rhythm GI/Abdominal Exam: Normal Bowel Sounds, Soft - Problem List Review Problem List Initiated/Reviewed/Updated: Yes - My Orders Last 24 Hours: My Active Orders 08/07/18 11:32 Acetaminophen/HYDROcodone [[place] 325-10 MG] 1 tab PO Q8H PRN - Plan Plan:: 53-year-old female being admitted secondary to altered mental status in the setting of dehydration, urinary analysis indicating urinary tract infection and chronic opioid medication. #1. Altered mental status now resolved #2. Dehydration/acute kidney injury For now resolved #3. Urinary tract infection -Patient's urine culture positive for Escherichia coli continue with ceftriaxone treatment #4. Chronic opioid medications -Patient to have her narco dose timing increased from every 4 hours to Q8 hours. -Continue with OxyContin 20 mg twice a day, continue with muscle relaxant #5. jail placement -Awaiting case management social work to assess [facility]
[2018-08-07] MEDS: Morphine 2 MG/ML Syringe IVPUSH PRN (17:15)
[2018-08-07] MEDS: Promethazine 25 MG Tab PO PRN (21:27)
[2018-08-07] MEDS: hydrOXYzine HCl 25 MG Tab PO PRN (21:27)
[2018-08-07] MEDS: cefTRIAXone 1 GM in Premix Bag 1 BAG IV SCH (23:35)
[2018-08-08] MEDS: hydrOXYzine HCl 25 MG Tab PO PRN ×3 (02:37→23:35)
[2018-08-08 05:36] LABS: CHLORIDE,CL 111 mmol/L (98-107); SODIUM,NA 143 mmol/L (136-145)
[2018-08-08] MEDS: Heparin Sodium 5,000 Units/ML Vial SUBCUT SCH ×3 (06:56→23:26)
[2018-08-08] MEDS: Pantoprazole 40 MG Tab.CR PO SCH (06:56)
[2018-08-08] MEDS: Gabapentin 800 MG Tab PO SCH ×4 (06:56→23:35)
[2018-08-08] MEDS: Sodium Chloride 0.9% 1,000 ML IV SCH (08:20)
[2018-08-08] MEDS: Nicotine 14 MG/24 Hr Patch TRDERM SCH (08:51)
[2018-08-08] MEDS: oxyCODONE ER 20 MG TAB.ER PO SCH ×2 (08:51→21:37)
[2018-08-08] MEDS: Meloxicam 7.5 MG Tab PO SCH (08:53)
[2018-08-08] MEDS: Escitalopram 10 MG Tab PO SCH (08:53)
[2018-08-08] MEDS: Potassium Chloride 20 MEQ Tab.ER PO SCH (09:56)
[2018-08-08] MEDS: Acetaminophen/HYDROcodone 325-10 MG Tab PO PRN ×2 (12:27→23:35)
--- NOTE | 2018-08-08 12:43 | PCM.PN ---
- General Info Date of Service: 08/08/18 Subjective Update: Pt requesting Physical therapy to work with her from strengthening of upper ext. - Patient Data Vitals - Most Recent: Last Vital Signs Temp 37.2 C 08/08/18 11:00 Pulse 69 08/08/18 11:00 Resp 16 08/08/18 11:00 BP 124/97 H 08/08/18 11:00 Pulse Ox 96 08/08/18 11:00 Weight - Most Recent: 82 kg I&O - Last 24 Hours: Intake & Output 08/07/18 08/08/18 08/08/18 22:59 06:59 14:59 Intake Total 1549 2150 Output Total 350 408 Balance 1199 1742 Lab Results Last 24 Hours: Laboratory Results - last 24 hr 08/08/18 08/08/18 Range/Units 05:07 05:07 WBC 4.15 (4.0-11.0) K/uL RBC 4.22 L (4.30-5.90) M/uL Hgb 12.7 (12.0-16.0) g/dL Hct 38.0 (36.0-46.0) % MCV 90.0 (80.0-98.0) fL MCH 30.1 (27.0-32.0) pg MCHC 33.4 (31.0-37.0) g/dL RDW Std Deviation 41.6 (28.0-62.0) fl RDW Coeff of Ros 13 (11.0-15.0) % Plt Count 90 L (150-400) K/uL MPV 9.20 (7.40-12.00) fL Neut % (Auto) 37.8 L (48.0-80.0) % Lymph % (Auto) 46.5 H (16.0-40.0) % [place] % (Auto) 10.1 (0.0-15.0) % Eos % (Auto) 4.6 (0.0-7.0) % Baso % (Auto) 1.0 (0.0-1.5) % Neut # (Auto) 1.6 (1.4-5.7) K/uL Lymph # (Auto) 1.9 (0.6-2.4) K/uL [place] # (Auto) 0.4 (0.0-0.8) K/uL Eos # (Auto) 0.2 (0.0-0.7) K/uL Baso # (Auto) 0.0 (0.0-0.1) K/uL Nucleated RBC % 0.0 /100WBC Nucleated RBCs # 0 K/uL Sodium 143 (136-145) mmol/L Potassium 3.3 L (3.5-5.1) mmol/L Chloride 111 H (98-107) mmol/L Carbon Dioxide 22.9 (21.0-32.0) mmol/L BUN 9 (7.0-18.0) mg/dL Creatinine 0.6 (0.6-1.0) mg/dL Est Cr Clr Drug Dosing TNP Estimated GFR (MDRD) > 60.0 ml/min Glucose 113 H (74-106) mg/dL Calcium 8.3 L (8.5-10.1) mg/dL Chace Results Last 24 Hours: Microbiology 08/05/18 21:30 Urine Culture - Final Urine, Clean Catch Escherichia Coli Med Orders - Current: Current Medications Hydrocodone Bitart/Acetaminophen ([place] 325-10 Mg) 1 tab PO Q8H PRN PRN Reason: Pain Last Admin: 08/08/18 12:27 Dose: 1 tab Escitalopram Oxalate (Lexapro) 20 mg PO DAILY [facility] Last Admin: 08/08/18 08:53 Dose: 20 mg Gabapentin (Neurontin) 800 mg PO QID [facility] Last Admin: 08/08/18 12:00 Dose: 800 mg Heparin Sodium (Porcine) (Heparin Sodium) 5,000 units SUBCUT Q8H [facility] Last Admin: 08/08/18 06:56 Dose: Not Given Hydroxyzine HCl (Atarax) 25 mg PO QID PRN PRN Reason: Anxiety Last Admin: 08/08/18 02:37 Dose: 25 mg Ceftriaxone Sodium/Dextrose 1 (gm/ Premix) 50 mls @ 100 mls/hr IV Q24H [facility] Last Admin: 08/07/18 23:35 Dose: 100 mls/hr Meloxicam (Mobic) 15 mg PO DAILY [facility] Last Admin: 08/08/18 08:53 Dose: 15 mg Metaxalone (Skelaxin) 400 mg PO QID PRN PRN Reason: pain Last Admin: 08/07/18 21:27 Dose: 400 mg Morphine Sulfate (Morphine) 2 mg IVPUSH Q2H PRN PRN Reason: Pain (severe 7-10) Last Admin: 08/07/18 17:15 Dose: 2 mg Nicotine (Habitrol) 14 mg TRDERM DAILY [facility] Last Admin: 08/08/18 08:51 Dose: 14 mg Oxycodone HCl (Oxycontin) 20 mg PO BID [facility] Last Admin: 08/08/18 08:51 Dose: 20 mg Pantoprazole Sodium (Protonix) 40 mg PO ACBREAKFAST [facility] Last Admin: 08/08/18 06:56 Dose: 40 mg Rizatriptan Benzoate ([Rizatriptan] 10 Mg) 1 each PO ASDIRECTED PRN PRN Reason: migraine Potassium Chloride (Klor-Con M20) 40 meq PO DAILY [facility] Last Admin: 08/08/18 09:56 Dose: 40 meq Promethazine HCl (Phenergan) 25 mg PO Q4H PRN PRN Reason: Nausea Last Admin: 08/07/18 21:27 Dose: 25 mg Discontinued Medications Hydrocodone Bitart/Acetaminophen ([place] 325-10 Mg) 1 tab PO Q4H PRN PRN Reason: Pain Last Admin: 08/06/18 23:33 Dose: 1 tab Sodium Chloride (Normal Saline) 1,000 mls @ 999 mls/hr IV STAT ONE Stop: 08/05/18 21:53 Last Admin: 08/05/18 21:09 Dose: 999 mls/hr Ceftriaxone Sodium/Dextrose 1 (gm/ Premix) 50 mls @ 100 mls/hr IV ONETIME ONE Stop: 08/06/18 00:44 Last Admin: 08/06/18 00:33 Dose: 100 mls/hr Sodium Chloride (Normal Saline) 1,000 mls @ 125 mls/hr IV STAT [facility] Last Admin: 08/06/18 00:35 Dose: 125 mls/hr Sodium Chloride (Normal Saline) 1,000 mls @ 125 mls/hr IV ASDIRECTED [facility] Last Admin: 08/08/18 08:20 Dose: 125 mls/hr Lorazepam (Ativan) 1 mg IVPUSH ONETIME ONE Stop: 08/05/18 20:57 Last Admin: 08/05/18 21:12 Dose: 1 mg - Exam General: Alert, Oriented, Cooperative Lungs: Clear to Auscultation, Normal Respiratory Effort Cardiovascular: Regular Rate, Regular Rhythm - Problem List Review Problem List Initiated/Reviewed/Updated: Yes - My Orders Last 24 Hours: My Active Orders 08/08/18 09:00 Consult to Home Health [CONS] Routine 08/08/18 09:15 Potassium Chloride [Klor-Con M20] 40 meq PO DAILY - Plan Plan:: 53 yo female admitted for altered mental status likely a combination of dehydration, UTI and pain medications. Continue with current management from UTI and Pain medication standpoint Shall consult PT to work with PT would like to have pt placed in [facility], [facility] has declined so shall need to work with Case Management to help with finding different placement
[2018-08-08] MEDS: Morphine 2 MG/ML Syringe IVPUSH PRN (18:34)
[2018-08-08] MEDS: Sulfamethoxazole/Trimethoprim 800-160 MG Tab PO SCH (21:37)
[2018-08-09] MEDS: Morphine 2 MG/ML Syringe IVPUSH PRN ×5 (02:42→20:50)
[2018-08-09] MEDS: Heparin Sodium 5,000 Units/ML Vial SUBCUT SCH ×3 (06:00→22:56)
[2018-08-09 06:07] LABS: CHLORIDE,CL 106 mmol/L (98-107); SODIUM,NA 139 mmol/L (136-145)
[2018-08-09] MEDS: Gabapentin 800 MG Tab PO SCH ×4 (06:24→23:01)
[2018-08-09] MEDS: Meloxicam 7.5 MG Tab PO SCH (08:33)
[2018-08-09] MEDS: Pantoprazole 40 MG Tab.CR PO SCH (08:33)
[2018-08-09] MEDS: Potassium Chloride 20 MEQ Tab.ER PO SCH (08:33)
[2018-08-09] MEDS: oxyCODONE ER 20 MG TAB.ER PO SCH ×2 (08:33→20:49)
[2018-08-09] MEDS: Escitalopram 10 MG Tab PO SCH (08:34)
[2018-08-09] MEDS: Sulfamethoxazole/Trimethoprim 800-160 MG Tab PO SCH ×2 (08:34→20:50)
[2018-08-09] MEDS: Nicotine 14 MG/24 Hr Patch TRDERM SCH (08:34)
[2018-08-09] MEDS: hydrOXYzine HCl 25 MG Tab PO PRN (11:54)
--- NOTE | 2018-08-09 12:31 | PCM.PN ---
- General Info Date of Service: 08/09/18 Subjective Update: Patient is stable, pain is well controlled awaiting half-way disposition. - Patient Data Vitals - Most Recent: Last Vital Signs Temp 36.6 C 08/09/18 12:00 Pulse 86 08/09/18 12:00 Resp 20 08/09/18 12:00 BP 105/60 08/09/18 12:00 Pulse Ox 98 08/09/18 12:00 Weight - Most Recent: 82 kg I&O - Last 24 Hours: Intake & Output 08/08/18 08/09/18 08/09/18 22:59 06:59 14:59 Intake Total 550 836 Balance 550 836 Lab Results Last 24 Hours: Laboratory Results - last 24 hr 08/09/18 08/09/18 Range/Units 04:55 04:55 WBC 5.92 (4.0-11.0) K/uL RBC 4.21 L (4.30-5.90) M/uL Hgb 12.9 (12.0-16.0) g/dL Hct 37.7 (36.0-46.0) % MCV 89.5 (80.0-98.0) fL MCH 30.6 (27.0-32.0) pg MCHC 34.2 (31.0-37.0) g/dL RDW Std Deviation 42.0 (28.0-62.0) fl RDW Coeff of Ros 13 (11.0-15.0) % Plt Count 99 L (150-400) K/uL MPV 9.50 (7.40-12.00) fL Neut % (Auto) 39.5 L (48.0-80.0) % Lymph % (Auto) 42.9 H (16.0-40.0) % [place] % (Auto) 11.7 (0.0-15.0) % Eos % (Auto) 5.2 (0.0-7.0) % Baso % (Auto) 0.7 (0.0-1.5) % Neut # (Auto) 2.3 (1.4-5.7) K/uL Lymph # (Auto) 2.5 H (0.6-2.4) K/uL [place] # (Auto) 0.7 (0.0-0.8) K/uL Eos # (Auto) 0.3 (0.0-0.7) K/uL Baso # (Auto) 0.0 (0.0-0.1) K/uL Nucleated RBC % 0.0 /100WBC Nucleated RBCs # 0 K/uL Sodium 139 (136-145) mmol/L Potassium 3.8 (3.5-5.1) mmol/L Chloride 106 (98-107) mmol/L Carbon Dioxide 27.3 (21.0-32.0) mmol/L BUN 12 (7.0-18.0) mg/dL Creatinine 0.6 (0.6-1.0) mg/dL Est Cr Clr Drug Dosing TNP Estimated GFR (MDRD) > 60.0 ml/min Glucose 100 (74-106) mg/dL Calcium 8.6 (8.5-10.1) mg/dL Total Bilirubin 0.2 (0.2-1.0) mg/dL AST 24 (15-37) IU/L ALT 23 (14-63) IU/L Alkaline Phosphatase 70 (46-116) U/L Total Protein 6.4 (6.4-8.2) g/dL Albumin 3.2 L (3.4-5.0) g/dL Globulin 3.2 (2.6-4.0) g/dL Albumin/Globulin Ratio 1.0 (0.9-1.6) Med Orders - Current: Current Medications Hydrocodone Bitart/Acetaminophen ([place] 325-10 Mg) 1 tab PO Q8H PRN PRN Reason: Pain Last Admin: 08/08/18 23:35 Dose: 1 tab Escitalopram Oxalate (Lexapro) 20 mg PO DAILY [facility] Last Admin: 08/09/18 08:34 Dose: 20 mg Gabapentin (Neurontin) 800 mg PO QID [facility] Last Admin: 08/09/18 11:53 Dose: 800 mg Heparin Sodium (Porcine) (Heparin Sodium) 5,000 units SUBCUT Q8H [facility] Last Admin: 08/09/18 06:00 Dose: Not Given Hydroxyzine HCl (Atarax) 25 mg PO QID PRN PRN Reason: Anxiety Last Admin: 08/09/18 11:54 Dose: 25 mg Meloxicam (Mobic) 15 mg PO DAILY [facility] Last Admin: 08/09/18 08:33 Dose: 15 mg Metaxalone (Skelaxin) 400 mg PO QID PRN PRN Reason: pain Last Admin: 08/08/18 14:59 Dose: 400 mg Morphine Sulfate (Morphine) 2 mg IVPUSH Q2H PRN PRN Reason: Pain (severe 7-10) Last Admin: 08/09/18 08:40 Dose: 2 mg Nicotine (Habitrol) 14 mg TRDERM DAILY [facility] Last Admin: 08/09/18 08:34 Dose: 14 mg Oxycodone HCl (Oxycontin) 20 mg PO BID [facility] Last Admin: 08/09/18 08:33 Dose: 20 mg Pantoprazole Sodium (Protonix) 40 mg PO ACBREAKFAST [facility] Last Admin: 08/09/18 08:33 Dose: 40 mg Rizatriptan Benzoate ([Rizatriptan] 10 Mg) 1 each PO ASDIRECTED PRN PRN Reason: migraine Potassium Chloride (Klor-Con M20) 40 meq PO DAILY [facility] Last Admin: 08/09/18 08:33 Dose: 40 meq Promethazine HCl (Phenergan) 25 mg PO Q4H PRN PRN Reason: Nausea Last Admin: 08/07/18 21:27 Dose: 25 mg Trimethoprim/Sulfamethoxazole (Septra Ds) 1 tab PO BID [facility] Last Admin: 08/09/18 08:34 Dose: 1 tab Discontinued Medications Hydrocodone Bitart/Acetaminophen ([place] 325-10 Mg) 1 tab PO Q4H PRN PRN Reason: Pain Last Admin: 08/06/18 23:33 Dose: 1 tab Sodium Chloride (Normal Saline) 1,000 mls @ 999 mls/hr IV STAT ONE Stop: 08/05/18 21:53 Last Admin: 08/05/18 21:09 Dose: 999 mls/hr Ceftriaxone Sodium/Dextrose 1 (gm/ Premix) 50 mls @ 100 mls/hr IV ONETIME ONE Stop: 08/06/18 00:44 Last Admin: 08/06/18 00:33 Dose: 100 mls/hr Sodium Chloride (Normal Saline) 1,000 mls @ 125 mls/hr IV STAT [facility] Last Admin: 08/06/18 00:35 Dose: 125 mls/hr Sodium Chloride (Normal Saline) 1,000 mls @ 125 mls/hr IV ASDIRECTED [facility] Last Admin: 08/08/18 08:20 Dose: 125 mls/hr Ceftriaxone Sodium/Dextrose 1 (gm/ Premix) 50 mls @ 100 mls/hr IV Q24H [facility] Last Admin: 08/07/18 23:35 Dose: 100 mls/hr Lorazepam (Ativan) 1 mg IVPUSH ONETIME ONE Stop: 08/05/18 20:57 Last Admin: 08/05/18 21:12 Dose: 1 mg - Exam General: Alert, Oriented, Cooperative Lungs: Clear to Auscultation, Normal Respiratory Effort Cardiovascular: Regular Rate, Regular Rhythm - Problem List Review Problem List Initiated/Reviewed/Updated: Yes - My Orders Last 24 Hours: My Active Orders 08/08/18 21:00 Sulfamethoxazole/Trimethoprim [Septra DS] 1 tab PO BID - Plan Plan:: 53 yo female admitted for altered mental status likely a combination of dehydration, UTI and pain medications. Continue with current management from UTI and Pain medication standpoint Awaiting [facility] paperwork disposition to see if the patient will qualify. Shall await case managements information.
[2018-08-09] MEDS: Docusate Sodium 100 MG Cap PO PRN (22:56)
[2018-08-09] MEDS: Acetaminophen/HYDROcodone 325-10 MG Tab PO PRN (23:01)
[2018-08-10] MEDS: hydrOXYzine HCl 25 MG Tab PO PRN (00:35)
[2018-08-10] MEDS: Morphine 2 MG/ML Syringe IVPUSH PRN ×7 (02:41→22:24)
[2018-08-10] MEDS: Pantoprazole 40 MG Tab.CR PO SCH (06:31)
[2018-08-10] MEDS: Heparin Sodium 5,000 Units/ML Vial SUBCUT SCH ×3 (06:31→21:31)
[2018-08-10] MEDS: Gabapentin 800 MG Tab PO SCH ×4 (06:31→23:53)
[2018-08-10] MEDS: oxyCODONE ER 20 MG TAB.ER PO SCH ×2 (08:25→21:30)
[2018-08-10] MEDS: Meloxicam 7.5 MG Tab PO SCH (08:25)
[2018-08-10] MEDS: Potassium Chloride 20 MEQ Tab.ER PO SCH (08:25)
[2018-08-10] MEDS: Nicotine 14 MG/24 Hr Patch TRDERM SCH (08:25)
[2018-08-10] MEDS: Escitalopram 10 MG Tab PO SCH (08:25)
[2018-08-10] MEDS: Sulfamethoxazole/Trimethoprim 800-160 MG Tab PO SCH ×2 (08:26→21:30)
[2018-08-10] MEDS: Acetaminophen/HYDROcodone 325-10 MG Tab PO PRN ×2 (12:23→23:53)
--- NOTE | 2018-08-10 12:50 | PCM.PN ---
- General Info Date of Service: 08/10/18 Subjective Update: Stable currently no complaints. - Patient Data Vitals - Most Recent: Last Vital Signs Temp 36.8 C 08/10/18 07:58 Pulse 82 08/10/18 07:58 Resp 17 08/10/18 07:58 BP 102/63 08/10/18 07:58 Pulse Ox 96 08/10/18 07:58 Weight - Most Recent: 82 kg I&O - Last 24 Hours: Intake & Output 08/09/18 08/10/18 08/10/18 22:59 06:59 14:59 Intake Total 650 900 Balance 650 900 Med Orders - Current: Current Medications Hydrocodone Bitart/Acetaminophen ([place] 325-10 Mg) 1 tab PO Q8H PRN PRN Reason: Pain Last Admin: 08/10/18 12:23 Dose: 1 tab Docusate Sodium (Colace) 100 mg PO DAILY PRN PRN Reason: Constipation Last Admin: 08/09/18 22:56 Dose: 100 mg Escitalopram Oxalate (Lexapro) 20 mg PO DAILY [facility] Last Admin: 08/10/18 08:25 Dose: 20 mg Gabapentin (Neurontin) 800 mg PO QID [facility] Last Admin: 08/10/18 11:15 Dose: 800 mg Heparin Sodium (Porcine) (Heparin Sodium) 5,000 units SUBCUT Q8H [facility] Last Admin: 08/10/18 06:31 Dose: Not Given Hydroxyzine HCl (Atarax) 25 mg PO QID PRN PRN Reason: Anxiety Last Admin: 08/10/18 00:35 Dose: 25 mg Meloxicam (Mobic) 15 mg PO DAILY [facility] Last Admin: 08/10/18 08:25 Dose: 15 mg Metaxalone (Skelaxin) 400 mg PO QID PRN PRN Reason: pain Last Admin: 08/09/18 22:56 Dose: 400 mg Morphine Sulfate (Morphine) 2 mg IVPUSH Q2H PRN PRN Reason: Pain (severe 7-10) Last Admin: 08/10/18 11:15 Dose: 2 mg Nicotine (Habitrol) 14 mg TRDERM DAILY [facility] Last Admin: 08/10/18 08:25 Dose: 14 mg Oxycodone HCl (Oxycontin) 20 mg PO BID [facility] Last Admin: 08/10/18 08:25 Dose: 20 mg Pantoprazole Sodium (Protonix) 40 mg PO ACBREAKFAST [facility] Last Admin: 08/10/18 06:31 Dose: 40 mg Rizatriptan Benzoate ([Rizatriptan] 10 Mg) 1 each PO ASDIRECTED PRN PRN Reason: migraine Potassium Chloride (Klor-Con M20) 40 meq PO DAILY [facility] Last Admin: 08/10/18 08:25 Dose: 40 meq Promethazine HCl (Phenergan) 25 mg PO Q4H PRN PRN Reason: Nausea Last Admin: 08/07/18 21:27 Dose: 25 mg Trimethoprim/Sulfamethoxazole (Septra Ds) 1 tab PO BID [facility] Last Admin: 08/10/18 08:26 Dose: 1 tab Discontinued Medications Hydrocodone Bitart/Acetaminophen ([place] 325-10 Mg) 1 tab PO Q4H PRN PRN Reason: Pain Last Admin: 08/06/18 23:33 Dose: 1 tab Sodium Chloride (Normal Saline) 1,000 mls @ 999 mls/hr IV STAT ONE Stop: 08/05/18 21:53 Last Admin: 08/05/18 21:09 Dose: 999 mls/hr Ceftriaxone Sodium/Dextrose 1 (gm/ Premix) 50 mls @ 100 mls/hr IV ONETIME ONE Stop: 08/06/18 00:44 Last Admin: 08/06/18 00:33 Dose: 100 mls/hr Sodium Chloride (Normal Saline) 1,000 mls @ 125 mls/hr IV STAT [facility] Last Admin: 08/06/18 00:35 Dose: 125 mls/hr Sodium Chloride (Normal Saline) 1,000 mls @ 125 mls/hr IV ASDIRECTED [facility] Last Admin: 08/08/18 08:20 Dose: 125 mls/hr Ceftriaxone Sodium/Dextrose 1 (gm/ Premix) 50 mls @ 100 mls/hr IV Q24H [facility] Last Admin: 08/07/18 23:35 Dose: 100 mls/hr Lorazepam (Ativan) 1 mg IVPUSH ONETIME ONE Stop: 08/05/18 20:57 Last Admin: 08/05/18 21:12 Dose: 1 mg - Exam Lungs: Clear to Auscultation, Normal Respiratory Effort Cardiovascular: Regular Rate, Regular Rhythm - Problem List Review Problem List Initiated/Reviewed/Updated: Yes - My Orders Last 24 Hours: My Active Orders 08/10/18 11:25 OT Evaluation and Treatment [CONS] Routine - Plan Plan:: 53 yo female admitted for altered mental status likely a combination of dehydration, UTI and pain medications. Continue with current management from UTI and Pain medication standpoint Awaiting [facility] decision that should be made today by 1 PM in regards to whether or not they will accept this patient.
[2018-08-10] MEDS: Docusate Sodium 100 MG Cap PO PRN (22:24)
[2018-08-11] MEDS: Promethazine 25 MG Tab PO PRN (03:38)
[2018-08-11] MEDS: hydrOXYzine HCl 25 MG Tab PO PRN ×2 (04:27→23:26)
[2018-08-11] MEDS: Gabapentin 800 MG Tab PO SCH ×4 (05:14→23:26)
[2018-08-11] MEDS: Heparin Sodium 5,000 Units/ML Vial SUBCUT SCH ×3 (06:11→22:00)
[2018-08-11] MEDS: Pantoprazole 40 MG Tab.CR PO SCH (06:37)
[2018-08-11] MEDS: Nicotine 14 MG/24 Hr Patch TRDERM SCH (08:20)
[2018-08-11] MEDS: oxyCODONE ER 20 MG TAB.ER PO SCH ×2 (08:22→21:57)
[2018-08-11] MEDS: Potassium Chloride 20 MEQ Tab.ER PO SCH (08:22)
[2018-08-11] MEDS: Sulfamethoxazole/Trimethoprim 800-160 MG Tab PO SCH ×2 (08:23→21:57)
[2018-08-11] MEDS: Escitalopram 10 MG Tab PO SCH (08:23)
[2018-08-11] MEDS: Meloxicam 7.5 MG Tab PO SCH (08:23)
[2018-08-11] MEDS: Acetaminophen/HYDROcodone 325-10 MG Tab PO PRN ×2 (13:00→19:33)
--- NOTE | 2018-08-11 19:23 | PCM.PN ---
- General Info Date of Service: 08/11/18 Subjective Update: Stable - Patient Data Vitals - Most Recent: Last Vital Signs Temp 37.1 C 08/11/18 12:00 Pulse 96 08/11/18 12:00 Resp 16 08/11/18 12:00 BP 96/60 08/11/18 12:00 Pulse Ox 95 08/11/18 12:00 Weight - Most Recent: 82 kg I&O - Last 24 Hours: Intake & Output 08/11/18 08/11/18 08/11/18 06:59 14:59 22:59 Intake Total 1000 1480 Output Total 2483 361 Balance -1483 1119 Med Orders - Current: Current Medications Hydrocodone Bitart/Acetaminophen ([place] 325-10 Mg) 1 tab PO Q6H PRN PRN Reason: Pain Last Admin: 08/11/18 13:00 Dose: 1 tab Docusate Sodium (Colace) 100 mg PO DAILY PRN PRN Reason: Constipation Last Admin: 08/10/18 22:24 Dose: 100 mg Escitalopram Oxalate (Lexapro) 20 mg PO DAILY [facility] Last Admin: 08/11/18 08:23 Dose: 20 mg Gabapentin (Neurontin) 800 mg PO QID [facility] Last Admin: 08/11/18 17:19 Dose: 800 mg Heparin Sodium (Porcine) (Heparin Sodium) 5,000 units SUBCUT Q8H [facility] Last Admin: 08/11/18 15:03 Dose: Not Given Hydroxyzine HCl (Atarax) 25 mg PO QID PRN PRN Reason: Anxiety Last Admin: 08/11/18 04:27 Dose: 25 mg Meloxicam (Mobic) 15 mg PO DAILY [facility] Last Admin: 08/11/18 08:23 Dose: 15 mg Metaxalone (Skelaxin) 400 mg PO QID PRN PRN Reason: pain Last Admin: 08/11/18 17:19 Dose: 400 mg Nicotine (Habitrol) 14 mg TRDERM DAILY [facility] Last Admin: 08/11/18 08:20 Dose: 14 mg Oxycodone HCl (Oxycontin) 20 mg PO BID [facility] Last Admin: 08/11/18 08:22 Dose: 20 mg Pantoprazole Sodium (Protonix) 40 mg PO ACBREAKFAST [facility] Last Admin: 08/11/18 06:37 Dose: 40 mg Rizatriptan Benzoate ([Rizatriptan] 10 Mg) 1 each PO ASDIRECTED PRN PRN Reason: migraine Potassium Chloride (Klor-Con M20) 40 meq PO DAILY [facility] Last Admin: 08/11/18 08:22 Dose: 40 meq Promethazine HCl (Phenergan) 25 mg PO Q4H PRN PRN Reason: Nausea Last Admin: 08/11/18 03:38 Dose: 25 mg Trimethoprim/Sulfamethoxazole (Septra Ds) 1 tab PO BID [facility] Last Admin: 08/11/18 08:23 Dose: 1 tab Discontinued Medications Hydrocodone Bitart/Acetaminophen ([place] 325-10 Mg) 1 tab PO Q4H PRN PRN Reason: Pain Last Admin: 08/06/18 23:33 Dose: 1 tab Hydrocodone Bitart/Acetaminophen ([place] 325-10 Mg) 1 tab PO Q8H PRN PRN Reason: Pain Last Admin: 08/10/18 23:53 Dose: 1 tab Sodium Chloride (Normal Saline) 1,000 mls @ 999 mls/hr IV STAT ONE Stop: 08/05/18 21:53 Last Admin: 08/05/18 21:09 Dose: 999 mls/hr Ceftriaxone Sodium/Dextrose 1 (gm/ Premix) 50 mls @ 100 mls/hr IV ONETIME ONE Stop: 08/06/18 00:44 Last Admin: 08/06/18 00:33 Dose: 100 mls/hr Sodium Chloride (Normal Saline) 1,000 mls @ 125 mls/hr IV STAT [facility] Last Admin: 08/06/18 00:35 Dose: 125 mls/hr Sodium Chloride (Normal Saline) 1,000 mls @ 125 mls/hr IV ASDIRECTED [facility] Last Admin: 08/08/18 08:20 Dose: 125 mls/hr Ceftriaxone Sodium/Dextrose 1 (gm/ Premix) 50 mls @ 100 mls/hr IV Q24H [facility] Last Admin: 08/07/18 23:35 Dose: 100 mls/hr Lorazepam (Ativan) 1 mg IVPUSH ONETIME ONE Stop: 08/05/18 20:57 Last Admin: 08/05/18 21:12 Dose: 1 mg Morphine Sulfate (Morphine) 2 mg IVPUSH Q2H PRN PRN Reason: Pain (severe 7-10) Last Admin: 08/10/18 22:24 Dose: 2 mg - Exam Lungs: Clear to Auscultation, Normal Respiratory Effort Cardiovascular: Regular Rate, Regular Rhythm - Problem List Review Problem List Initiated/Reviewed/Updated: Yes - My Orders Last 24 Hours: My Active Orders 08/11/18 12:10 Acetaminophen/HYDROcodone [[place] 325-10 MG] 1 tab PO Q6H PRN 08/11/18 12:11 Communication Order [RC] Q12H - Plan Plan:: 53 yo female admitted for altered mental status likely a combination of dehydration, UTI and pain medications. Continue with current management from UTI and Pain medication standpoint [facility] to make decision this upcoming Tuesday as far as whether or not they will accept this patient continue to follow with case management.
[2018-08-12] MEDS: Acetaminophen/HYDROcodone 325-10 MG Tab PO PRN ×4 (02:15→23:59)
[2018-08-12] MEDS: Docusate Sodium 100 MG Cap PO PRN (05:00)
[2018-08-12] MEDS: Gabapentin 800 MG Tab PO SCH ×4 (05:08→23:09)
[2018-08-12] MEDS: Heparin Sodium 5,000 Units/ML Vial SUBCUT SCH ×3 (06:04→22:13)
[2018-08-12] MEDS: Pantoprazole 40 MG Tab.CR PO SCH (06:31)
[2018-08-12] MEDS: Meloxicam 7.5 MG Tab PO SCH (08:21)
[2018-08-12] MEDS: Nicotine 14 MG/24 Hr Patch TRDERM SCH (08:21)
[2018-08-12] MEDS: Escitalopram 10 MG Tab PO SCH (08:21)
[2018-08-12] MEDS: Sulfamethoxazole/Trimethoprim 800-160 MG Tab PO SCH ×2 (08:22→21:13)
[2018-08-12] MEDS: Potassium Chloride 20 MEQ Tab.ER PO SCH (08:22)
[2018-08-12] MEDS: oxyCODONE ER 20 MG TAB.ER PO SCH ×2 (08:22→21:12)
--- NOTE | 2018-08-12 12:37 | PCM.PN ---
- General Info Date of Service: 08/12/18 Subjective Update: Stable - Patient Data Vitals - Most Recent: Last Vital Signs Temp 36.4 C 08/12/18 12:00 Pulse 82 08/12/18 12:00 Resp 16 08/12/18 12:00 BP 101/51 L 08/12/18 12:00 Pulse Ox 96 08/12/18 12:00 Weight - Most Recent: 82 kg I&O - Last 24 Hours: Intake & Output 08/11/18 08/12/18 08/12/18 22:59 06:59 14:59 Intake Total 1480 400 Output Total 361 Balance 1119 400 Med Orders - Current: Current Medications Hydrocodone Bitart/Acetaminophen ([place] 325-10 Mg) 1 tab PO Q6H PRN PRN Reason: Pain Last Admin: 08/12/18 10:35 Dose: 1 tab Docusate Sodium (Colace) 100 mg PO DAILY PRN PRN Reason: Constipation Last Admin: 08/12/18 05:00 Dose: 100 mg Escitalopram Oxalate (Lexapro) 20 mg PO DAILY [facility] Last Admin: 08/12/18 08:21 Dose: 20 mg Gabapentin (Neurontin) 800 mg PO QID [facility] Last Admin: 08/12/18 11:52 Dose: 800 mg Heparin Sodium (Porcine) (Heparin Sodium) 5,000 units SUBCUT Q8H [facility] Last Admin: 08/12/18 06:04 Dose: Not Given Hydroxyzine HCl (Atarax) 25 mg PO QID PRN PRN Reason: Anxiety Last Admin: 08/11/18 23:26 Dose: 25 mg Meloxicam (Mobic) 15 mg PO DAILY [facility] Last Admin: 08/12/18 08:21 Dose: 15 mg Metaxalone (Skelaxin) 400 mg PO QID PRN PRN Reason: pain Last Admin: 08/12/18 05:07 Dose: 400 mg Nicotine (Habitrol) 14 mg TRDERM DAILY [facility] Last Admin: 08/12/18 08:21 Dose: 14 mg Oxycodone HCl (Oxycontin) 20 mg PO BID [facility] Last Admin: 08/12/18 08:22 Dose: 20 mg Pantoprazole Sodium (Protonix) 40 mg PO ACBREAKFAST [facility] Last Admin: 08/12/18 06:31 Dose: 40 mg Rizatriptan Benzoate ([Rizatriptan] 10 Mg) 1 each PO ASDIRECTED PRN PRN Reason: migraine Potassium Chloride (Klor-Con M20) 40 meq PO DAILY [facility] Last Admin: 08/12/18 08:22 Dose: 40 meq Promethazine HCl (Phenergan) 25 mg PO Q4H PRN PRN Reason: Nausea Last Admin: 08/11/18 03:38 Dose: 25 mg Trimethoprim/Sulfamethoxazole (Septra Ds) 1 tab PO BID [facility] Last Admin: 08/12/18 08:22 Dose: 1 tab Discontinued Medications Hydrocodone Bitart/Acetaminophen ([place] 325-10 Mg) 1 tab PO Q4H PRN PRN Reason: Pain Last Admin: 08/06/18 23:33 Dose: 1 tab Hydrocodone Bitart/Acetaminophen ([place] 325-10 Mg) 1 tab PO Q8H PRN PRN Reason: Pain Last Admin: 08/10/18 23:53 Dose: 1 tab Sodium Chloride (Normal Saline) 1,000 mls @ 999 mls/hr IV STAT ONE Stop: 08/05/18 21:53 Last Admin: 08/05/18 21:09 Dose: 999 mls/hr Ceftriaxone Sodium/Dextrose 1 (gm/ Premix) 50 mls @ 100 mls/hr IV ONETIME ONE Stop: 08/06/18 00:44 Last Admin: 08/06/18 00:33 Dose: 100 mls/hr Sodium Chloride (Normal Saline) 1,000 mls @ 125 mls/hr IV STAT [facility] Last Admin: 08/06/18 00:35 Dose: 125 mls/hr Sodium Chloride (Normal Saline) 1,000 mls @ 125 mls/hr IV ASDIRECTED [facility] Last Admin: 08/08/18 08:20 Dose: 125 mls/hr Ceftriaxone Sodium/Dextrose 1 (gm/ Premix) 50 mls @ 100 mls/hr IV Q24H [facility] Last Admin: 08/07/18 23:35 Dose: 100 mls/hr Lorazepam (Ativan) 1 mg IVPUSH ONETIME ONE Stop: 08/05/18 20:57 Last Admin: 08/05/18 21:12 Dose: 1 mg Morphine Sulfate (Morphine) 2 mg IVPUSH Q2H PRN PRN Reason: Pain (severe 7-10) Last Admin: 08/10/18 22:24 Dose: 2 mg - Exam Lungs: Clear to Auscultation, Normal Respiratory Effort Cardiovascular: Regular Rate, Regular Rhythm - Problem List Review Problem List Initiated/Reviewed/Updated: Yes - My Orders Last 24 Hours: My Active Orders 08/11/18 12:10 Acetaminophen/HYDROcodone [[place] 325-10 MG] 1 tab PO Q6H PRN 08/11/18 12:11 Communication Order [RC] Q12H - Plan Plan:: 53 yo female admitted for altered mental status likely a combination of dehydration, UTI and pain medications. Continue with current management from UTI and Pain medication standpoint. Patient was requesting an increase of her opiate medication, explained to the patient that she is more active and alert since we have the escalated her opiate medications and currently we will continue with the current regimen patient agreed with the plan. [facility] to make decision this upcoming Tuesday as far as whether or not they will accept this patient continue to follow with case management.
[2018-08-12] MEDS: hydrOXYzine HCl 25 MG Tab PO PRN ×2 (15:02→23:09)
[2018-08-13] MEDS: Gabapentin 800 MG Tab PO SCH ×4 (06:35→23:24)
[2018-08-13] MEDS: Pantoprazole 40 MG Tab.CR PO SCH (06:35)
[2018-08-13] MEDS: Acetaminophen/HYDROcodone 325-10 MG Tab PO PRN ×2 (06:35→14:58)
[2018-08-13] MEDS: Heparin Sodium 5,000 Units/ML Vial SUBCUT SCH ×3 (06:36→23:05)
[2018-08-13] MEDS: oxyCODONE ER 20 MG TAB.ER PO SCH ×2 (09:37→21:15)
[2018-08-13] MEDS: Escitalopram 10 MG Tab PO SCH (09:37)
[2018-08-13] MEDS: Sulfamethoxazole/Trimethoprim 800-160 MG Tab PO SCH ×2 (09:37→21:15)
[2018-08-13] MEDS: Potassium Chloride 20 MEQ Tab.ER PO SCH (09:37)
[2018-08-13] MEDS: Meloxicam 7.5 MG Tab PO SCH (09:37)
[2018-08-13] MEDS: Nicotine 14 MG/24 Hr Patch TRDERM SCH (09:38)
--- NOTE | 2018-08-13 09:39 | PCM.PN ---
- General Info Date of Service: 08/13/18 - Review of Systems Systems Review Comment:: no new complaints, pain controlled - Patient Data Vitals - Most Recent: Last Vital Signs Temp 36.2 C 08/13/18 07:48 Pulse 90 08/13/18 07:48 Resp 18 08/13/18 07:48 BP 109/55 L 08/13/18 07:48 Pulse Ox 96 08/13/18 07:48 Weight - Most Recent: 82 kg I&O - Last 24 Hours: Intake & Output 08/12/18 08/13/18 08/13/18 22:59 06:59 14:59 Intake Total 1010 1000 Output Total 1016 Balance 1010 -16 Med Orders - Current: Current Medications Hydrocodone Bitart/Acetaminophen ([place] 325-10 Mg) 1 tab PO Q6H PRN PRN Reason: Pain Last Admin: 08/13/18 06:35 Dose: 1 tab Docusate Sodium (Colace) 100 mg PO DAILY PRN PRN Reason: Constipation Last Admin: 08/12/18 05:00 Dose: 100 mg Escitalopram Oxalate (Lexapro) 20 mg PO DAILY [facility] Last Admin: 08/12/18 08:21 Dose: 20 mg Gabapentin (Neurontin) 800 mg PO QID [facility] Last Admin: 08/13/18 06:35 Dose: 800 mg Heparin Sodium (Porcine) (Heparin Sodium) 5,000 units SUBCUT Q8H [facility] Last Admin: 08/13/18 06:36 Dose: Not Given Hydroxyzine HCl (Atarax) 25 mg PO QID PRN PRN Reason: Anxiety Last Admin: 08/12/18 23:09 Dose: 25 mg Meloxicam (Mobic) 15 mg PO DAILY [facility] Last Admin: 08/12/18 08:21 Dose: 15 mg Metaxalone (Skelaxin) 400 mg PO QID PRN PRN Reason: pain Last Admin: 08/12/18 05:07 Dose: 400 mg Nicotine (Habitrol) 14 mg TRDERM DAILY [facility] Last Admin: 08/12/18 08:21 Dose: 14 mg Oxycodone HCl (Oxycontin) 20 mg PO BID [facility] Last Admin: 08/12/18 21:12 Dose: 20 mg Pantoprazole Sodium (Protonix) 40 mg PO ACBREAKFAST [facility] Last Admin: 08/13/18 06:35 Dose: 40 mg Rizatriptan Benzoate ([Rizatriptan] 10 Mg) 1 each PO ASDIRECTED PRN PRN Reason: migraine Potassium Chloride (Klor-Con M20) 40 meq PO DAILY [facility] Last Admin: 08/12/18 08:22 Dose: 40 meq Promethazine HCl (Phenergan) 25 mg PO Q4H PRN PRN Reason: Nausea Last Admin: 08/11/18 03:38 Dose: 25 mg Trimethoprim/Sulfamethoxazole (Septra Ds) 1 tab PO BID [facility] Last Admin: 08/12/18 21:13 Dose: 1 tab Discontinued Medications Hydrocodone Bitart/Acetaminophen ([place] 325-10 Mg) 1 tab PO Q4H PRN PRN Reason: Pain Last Admin: 08/06/18 23:33 Dose: 1 tab Hydrocodone Bitart/Acetaminophen ([place] 325-10 Mg) 1 tab PO Q8H PRN PRN Reason: Pain Last Admin: 08/10/18 23:53 Dose: 1 tab Sodium Chloride (Normal Saline) 1,000 mls @ 999 mls/hr IV STAT ONE Stop: 08/05/18 21:53 Last Admin: 08/05/18 21:09 Dose: 999 mls/hr Ceftriaxone Sodium/Dextrose 1 (gm/ Premix) 50 mls @ 100 mls/hr IV ONETIME ONE Stop: 08/06/18 00:44 Last Admin: 08/06/18 00:33 Dose: 100 mls/hr Sodium Chloride (Normal Saline) 1,000 mls @ 125 mls/hr IV STAT [facility] Last Admin: 08/06/18 00:35 Dose: 125 mls/hr Sodium Chloride (Normal Saline) 1,000 mls @ 125 mls/hr IV ASDIRECTED [facility] Last Admin: 08/08/18 08:20 Dose: 125 mls/hr Ceftriaxone Sodium/Dextrose 1 (gm/ Premix) 50 mls @ 100 mls/hr IV Q24H [facility] Last Admin: 08/07/18 23:35 Dose: 100 mls/hr Lorazepam (Ativan) 1 mg IVPUSH ONETIME ONE Stop: 08/05/18 20:57 Last Admin: 08/05/18 21:12 Dose: 1 mg Morphine Sulfate (Morphine) 2 mg IVPUSH Q2H PRN PRN Reason: Pain (severe 7-10) Last Admin: 08/10/18 22:24 Dose: 2 mg - Exam General: Alert, Oriented Lungs: Clear to Auscultation, Normal Respiratory Effort Cardiovascular: Regular Rate, Regular Rhythm GI/Abdominal Exam: Soft, Non-Tender Extremities: No Pedal Edema - Problem List Review Problem List Initiated/Reviewed/Updated: No - Plan Plan:: 53 yo female admitted for altered mental status likely a combination of dehydration, UTI and pain medications. Mentation has cleared, discharge is pending placement.
[2018-08-13] MEDS: hydrOXYzine HCl 25 MG Tab PO PRN (21:15)
[2018-08-13] MEDS: Promethazine 25 MG Tab PO PRN (21:15)
[2018-08-14] MEDS: Acetaminophen/HYDROcodone 325-10 MG Tab PO PRN ×4 (00:37→18:32)
[2018-08-14] MEDS: hydrOXYzine HCl 25 MG Tab PO PRN (03:44)
[2018-08-14] MEDS: Promethazine 25 MG Tab PO PRN (03:44)
[2018-08-14] MEDS: Pantoprazole 40 MG Tab.CR PO SCH ×2 (06:21→06:35)
[2018-08-14] MEDS: Gabapentin 800 MG Tab PO SCH ×3 (06:21→17:32)
[2018-08-14] MEDS: Heparin Sodium 5,000 Units/ML Vial SUBCUT SCH (06:35)
[2018-08-14] MEDS: Potassium Chloride 20 MEQ Tab.ER PO SCH (08:33)
[2018-08-14] MEDS: oxyCODONE ER 20 MG TAB.ER PO SCH ×2 (08:33→20:44)
[2018-08-14] MEDS: Nicotine 14 MG/24 Hr Patch TRDERM SCH (08:33)
[2018-08-14] MEDS: Meloxicam 7.5 MG Tab PO SCH (08:33)
[2018-08-14] MEDS: Escitalopram 10 MG Tab PO SCH (08:34)
[2018-08-14] MEDS: Sulfamethoxazole/Trimethoprim 800-160 MG Tab PO SCH ×2 (08:35→20:45)
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
[2018-08-14] MEDS: Docusate Sodium 100 MG Cap PO PRN (20:45)
[2018-08-15] MEDS: Gabapentin 800 MG Tab PO SCH ×4 (00:30→17:19)
[2018-08-15] MEDS: Acetaminophen/HYDROcodone 325-10 MG Tab PO PRN ×4 (02:13→21:48)
[2018-08-15] MEDS: Pantoprazole 40 MG Tab.CR PO SCH (06:29)
[2018-08-15] MEDS: hydrOXYzine HCl 25 MG Tab PO PRN (06:34)
[2018-08-15] MEDS: Meloxicam 7.5 MG Tab PO SCH (09:31)
[2018-08-15] MEDS: Potassium Chloride 20 MEQ Tab.ER PO SCH (09:31)
[2018-08-15] MEDS: Escitalopram 10 MG Tab PO SCH (09:31)
[2018-08-15] MEDS: Sulfamethoxazole/Trimethoprim 800-160 MG Tab PO SCH (09:31)
[2018-08-15] MEDS: oxyCODONE ER 20 MG TAB.ER PO SCH ×2 (09:34→20:53)
[2018-08-15] MEDS: Nicotine 14 MG/24 Hr Patch TRDERM SCH (09:35)
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
[2018-08-16] MEDS: Gabapentin 800 MG Tab PO SCH ×4 (01:00→17:27)
[2018-08-16] MEDS: Acetaminophen/HYDROcodone 325-10 MG Tab PO PRN ×3 (04:28→16:01)
[2018-08-16] MEDS: Pantoprazole 40 MG Tab.CR PO SCH ×2 (06:28→06:35)
[2018-08-16] MEDS: Nicotine 14 MG/24 Hr Patch TRDERM SCH (08:55)
[2018-08-16] MEDS: Escitalopram 10 MG Tab PO SCH (08:59)
[2018-08-16] MEDS: Potassium Chloride 20 MEQ Tab.ER PO SCH (09:00)
[2018-08-16] MEDS: oxyCODONE ER 20 MG TAB.ER PO SCH ×2 (09:00→20:01)
[2018-08-16] MEDS: Meloxicam 7.5 MG Tab PO SCH (09:00)
[2018-08-17] MEDS: Gabapentin 800 MG Tab PO SCH ×5 (00:02→23:36)
[2018-08-17] MEDS: Acetaminophen/HYDROcodone 325-10 MG Tab PO PRN ×3 (04:09→17:38)
[2018-08-17] MEDS: Pantoprazole 40 MG Tab.CR PO SCH (06:37)
[2018-08-17] MEDS: oxyCODONE ER 20 MG TAB.ER PO SCH ×2 (08:45→20:51)
[2018-08-17] MEDS: Meloxicam 7.5 MG Tab PO SCH (08:47)
[2018-08-17] MEDS: Potassium Chloride 20 MEQ Tab.ER PO SCH (08:47)
[2018-08-17] MEDS: Nicotine 14 MG/24 Hr Patch TRDERM SCH (08:48)
[2018-08-17] MEDS: Escitalopram 10 MG Tab PO SCH (08:54)
--- NOTE | 2018-08-17 12:38 | PCM.PN ---
<Rohit Hurtado Z - Last Filed: 08/17/18 17:16> - General Info Date of Service: 08/16/18 Subjective Update: Patient continues to be stable awaiting disposition decision from [facility]. - Patient Data Vitals - Most Recent: Last Vital Signs Temp 36.6 C 08/17/18 12:00 Pulse 76 08/17/18 12:00 Resp 16 08/17/18 12:00 BP 102/58 L 08/17/18 12:00 Pulse Ox 100 08/17/18 12:00 Weight - Most Recent: 82 kg I&O - Last 24 Hours: Intake & Output 08/16/18 08/17/18 08/17/18 22:59 06:59 14:59 Intake Total 900 900 Output Total 567 Balance 333 900 Med Orders - Current: Current Medications Hydrocodone Bitart/Acetaminophen ([place] 325-10 Mg) 1 tab PO Q6H PRN PRN Reason: Pain Last Admin: 08/17/18 11:23 Dose: 1 tab Docusate Sodium (Colace) 100 mg PO DAILY PRN PRN Reason: Constipation Last Admin: 08/14/18 20:45 Dose: 100 mg Escitalopram Oxalate (Lexapro) 20 mg PO DAILY [facility] Last Admin: 08/17/18 08:54 Dose: 20 mg Gabapentin (Neurontin) 800 mg PO QID [facility] Last Admin: 08/17/18 11:24 Dose: 800 mg Hydroxyzine HCl (Atarax) 25 mg PO QID PRN PRN Reason: Anxiety Last Admin: 08/15/18 06:34 Dose: 25 mg Meloxicam (Mobic) 15 mg PO DAILY [facility] Last Admin: 08/17/18 08:47 Dose: 15 mg Metaxalone (Skelaxin) 400 mg PO QID PRN PRN Reason: pain Last Admin: 08/16/18 15:55 Dose: 400 mg Nicotine (Habitrol) 14 mg TRDERM DAILY [facility] Last Admin: 08/17/18 08:48 Dose: 14 mg Oxycodone HCl (Oxycontin) 20 mg PO BID [facility] Last Admin: 08/17/18 08:45 Dose: 20 mg Pantoprazole Sodium (Protonix) 40 mg PO ACBREAKFAST [facility] Last Admin: 08/17/18 06:37 Dose: 40 mg Rizatriptan Benzoate ([Rizatriptan] 10 Mg) 1 each PO ASDIRECTED PRN PRN Reason: migraine Potassium Chloride (Klor-Con M20) 40 meq PO DAILY [facility] Last Admin: 08/17/18 08:47 Dose: 40 meq Promethazine HCl (Phenergan) 25 mg PO Q4H PRN PRN Reason: Nausea Last Admin: 08/14/18 03:44 Dose: 25 mg Discontinued Medications Hydrocodone Bitart/Acetaminophen ([place] 325-10 Mg) 1 tab PO Q4H PRN PRN Reason: Pain Last Admin: 08/06/18 23:33 Dose: 1 tab Hydrocodone Bitart/Acetaminophen ([place] 325-10 Mg) 1 tab PO Q8H PRN PRN Reason: Pain Last Admin: 08/10/18 23:53 Dose: 1 tab Heparin Sodium (Porcine) (Heparin Sodium) 5,000 units SUBCUT Q8H [facility] Last Admin: 08/14/18 06:35 Dose: Not Given Sodium Chloride (Normal Saline) 1,000 mls @ 999 mls/hr IV STAT ONE Stop: 08/05/18 21:53 Last Admin: 08/05/18 21:09 Dose: 999 mls/hr Ceftriaxone Sodium/Dextrose 1 (gm/ Premix) 50 mls @ 100 mls/hr IV ONETIME ONE Stop: 08/06/18 00:44 Last Admin: 08/06/18 00:33 Dose: 100 mls/hr Sodium Chloride (Normal Saline) 1,000 mls @ 125 mls/hr IV STAT [facility] Last Admin: 08/06/18 00:35 Dose: 125 mls/hr Sodium Chloride (Normal Saline) 1,000 mls @ 125 mls/hr IV ASDIRECTED [facility] Last Admin: 08/08/18 08:20 Dose: 125 mls/hr Ceftriaxone Sodium/Dextrose 1 (gm/ Premix) 50 mls @ 100 mls/hr IV Q24H [facility] Last Admin: 08/07/18 23:35 Dose: 100 mls/hr Lorazepam (Ativan) 1 mg IVPUSH ONETIME ONE Stop: 08/05/18 20:57 Last Admin: 08/05/18 21:12 Dose: 1 mg Morphine Sulfate (Morphine) 2 mg IVPUSH Q2H PRN PRN Reason: Pain (severe 7-10) Last Admin: 08/10/18 22:24 Dose: 2 mg Trimethoprim/Sulfamethoxazole (Septra Ds) 1 tab PO BID [facility] Last Admin: 08/15/18 09:31 Dose: 1 tab - Exam Lungs: Clear to Auscultation, Normal Respiratory Effort Cardiovascular: Regular Rate, Regular Rhythm - Problem List Review Problem List Initiated/Reviewed/Updated: Yes - Plan Plan:: patient continues to be stable, pain is well controlled. Awaiting disposition from [facility] at [place]. Patient is not on any IV fluids, electrolytes last checked are within normal limits, is on a regular diet. I saw and evaluated the patient. Discussed with resident and agree with residents findings and plan as documented in the residents note. <Felipe Mcmullen - Last Filed: 08/17/18 17:29> - Patient Data Vitals - Most Recent: Last Vital Signs Temp 36.6 C 08/17/18 12:00 Pulse 76 08/17/18 12:00 Resp 16 08/17/18 12:00 BP 102/58 L 08/17/18 12:00 Pulse Ox 100 08/17/18 12:00 I&O - Last 24 Hours: Intake & Output 08/17/18 08/17/18 08/17/18 06:59 14:59 22:59 Intake Total 900 Balance 900 Med Orders - Current: Current Medications Hydrocodone Bitart/Acetaminophen ([place] 325-10 Mg) 1 tab PO Q6H PRN PRN Reason: Pain Last Admin: 08/17/18 11:23 Dose: 1 tab Docusate Sodium (Colace) 100 mg PO DAILY PRN PRN Reason: Constipation Last Admin: 08/14/18 20:45 Dose: 100 mg Escitalopram Oxalate (Lexapro) 20 mg PO DAILY [facility] Last Admin: 08/17/18 08:54 Dose: 20 mg Gabapentin (Neurontin) 800 mg PO QID [facility] Last Admin: 08/17/18 11:24 Dose: 800 mg Hydroxyzine HCl (Atarax) 25 mg PO QID PRN PRN Reason: Anxiety Last Admin: 08/15/18 06:34 Dose: 25 mg Meloxicam (Mobic) 15 mg PO DAILY [facility] Last Admin: 08/17/18 08:47 Dose: 15 mg Metaxalone (Skelaxin) 400 mg PO QID PRN PRN Reason: pain Last Admin: 08/17/18 15:31 Dose: 400 mg Nicotine (Habitrol) 14 mg TRDERM DAILY [facility] Last Admin: 08/17/18 08:48 Dose: 14 mg Oxycodone HCl (Oxycontin) 20 mg PO BID [facility] Last Admin: 08/17/18 08:45 Dose: 20 mg Pantoprazole Sodium (Protonix) 40 mg PO ACBREAKFAST [facility] Last Admin: 08/17/18 06:37 Dose: 40 mg Rizatriptan Benzoate ([Rizatriptan] 10 Mg) 1 each PO ASDIRECTED PRN PRN Reason: migraine Potassium Chloride (Klor-Con M20) 40 meq PO DAILY [facility] Last Admin: 08/17/18 08:47 Dose: 40 meq Promethazine HCl (Phenergan) 25 mg PO Q4H PRN PRN Reason: Nausea Last Admin: 08/14/18 03:44 Dose: 25 mg Discontinued Medications Hydrocodone Bitart/Acetaminophen ([place] 325-10 Mg) 1 tab PO Q4H PRN PRN Reason: Pain Last Admin: 08/06/18 23:33 Dose: 1 tab Hydrocodone Bitart/Acetaminophen ([place] 325-10 Mg) 1 tab PO Q8H PRN PRN Reason: Pain Last Admin: 08/10/18 23:53 Dose: 1 tab Heparin Sodium (Porcine) (Heparin Sodium) 5,000 units SUBCUT Q8H [facility] Last Admin: 08/14/18 06:35 Dose: Not Given Sodium Chloride (Normal Saline) 1,000 mls @ 999 mls/hr IV STAT ONE Stop: 08/05/18 21:53 Last Admin: 08/05/18 21:09 Dose: 999 mls/hr Ceftriaxone Sodium/Dextrose 1 (gm/ Premix) 50 mls @ 100 mls/hr IV ONETIME ONE Stop: 08/06/18 00:44 Last Admin: 08/06/18 00:33 Dose: 100 mls/hr Sodium Chloride (Normal Saline) 1,000 mls @ 125 mls/hr IV STAT [facility] Last Admin: 08/06/18 00:35 Dose: 125 mls/hr Sodium Chloride (Normal Saline) 1,000 mls @ 125 mls/hr IV ASDIRECTED [facility] Last Admin: 08/08/18 08:20 Dose: 125 mls/hr Ceftriaxone Sodium/Dextrose 1 (gm/ Premix) 50 mls @ 100 mls/hr IV Q24H [facility] Last Admin: 08/07/18 23:35 Dose: 100 mls/hr Lorazepam (Ativan) 1 mg IVPUSH ONETIME ONE Stop: 08/05/18 20:57 Last Admin: 08/05/18 21:12 Dose: 1 mg Morphine Sulfate (Morphine) 2 mg IVPUSH Q2H PRN PRN Reason: Pain (severe 7-10) Last Admin: 08/10/18 22:24 Dose: 2 mg Trimethoprim/Sulfamethoxazole (Septra Ds) 1 tab PO BID [facility] Last Admin: 08/15/18 09:31 Dose: 1 tab - Plan Plan:: I was present with the resident during the history and exam. I discussed the case with the resident and agree with the findings and plan as documented in the residents note.
--- NOTE | 2018-08-17 12:38 | PCM.PN ---
<Rohit Hurtado Z - Last Filed: 08/17/18 17:18> - General Info Date of Service: 08/17/18 Subjective Update: Patient continues to be stable awaiting disposition decision from retirement. - Patient Data Vitals - Most Recent: Last Vital Signs Temp 36.6 C 08/17/18 12:00 Pulse 76 08/17/18 12:00 Resp 16 08/17/18 12:00 BP 102/58 L 08/17/18 12:00 Pulse Ox 100 08/17/18 12:00 Weight - Most Recent: 82 kg I&O - Last 24 Hours: Intake & Output 08/16/18 08/17/18 08/17/18 22:59 06:59 14:59 Intake Total 900 900 Output Total 567 Balance 333 900 Med Orders - Current: Current Medications Hydrocodone Bitart/Acetaminophen ([place] 325-10 Mg) 1 tab PO Q6H PRN PRN Reason: Pain Last Admin: 08/17/18 11:23 Dose: 1 tab Docusate Sodium (Colace) 100 mg PO DAILY PRN PRN Reason: Constipation Last Admin: 08/14/18 20:45 Dose: 100 mg Escitalopram Oxalate (Lexapro) 20 mg PO DAILY [facility] Last Admin: 08/17/18 08:54 Dose: 20 mg Gabapentin (Neurontin) 800 mg PO QID [facility] Last Admin: 08/17/18 11:24 Dose: 800 mg Hydroxyzine HCl (Atarax) 25 mg PO QID PRN PRN Reason: Anxiety Last Admin: 08/15/18 06:34 Dose: 25 mg Meloxicam (Mobic) 15 mg PO DAILY [facility] Last Admin: 08/17/18 08:47 Dose: 15 mg Metaxalone (Skelaxin) 400 mg PO QID PRN PRN Reason: pain Last Admin: 08/16/18 15:55 Dose: 400 mg Nicotine (Habitrol) 14 mg TRDERM DAILY [facility] Last Admin: 08/17/18 08:48 Dose: 14 mg Oxycodone HCl (Oxycontin) 20 mg PO BID [facility] Last Admin: 08/17/18 08:45 Dose: 20 mg Pantoprazole Sodium (Protonix) 40 mg PO ACBREAKFAST [facility] Last Admin: 08/17/18 06:37 Dose: 40 mg Rizatriptan Benzoate ([Rizatriptan] 10 Mg) 1 each PO ASDIRECTED PRN PRN Reason: migraine Potassium Chloride (Klor-Con M20) 40 meq PO DAILY [facility] Last Admin: 08/17/18 08:47 Dose: 40 meq Promethazine HCl (Phenergan) 25 mg PO Q4H PRN PRN Reason: Nausea Last Admin: 08/14/18 03:44 Dose: 25 mg Discontinued Medications Hydrocodone Bitart/Acetaminophen ([place] 325-10 Mg) 1 tab PO Q4H PRN PRN Reason: Pain Last Admin: 08/06/18 23:33 Dose: 1 tab Hydrocodone Bitart/Acetaminophen ([place] 325-10 Mg) 1 tab PO Q8H PRN PRN Reason: Pain Last Admin: 08/10/18 23:53 Dose: 1 tab Heparin Sodium (Porcine) (Heparin Sodium) 5,000 units SUBCUT Q8H [facility] Last Admin: 08/14/18 06:35 Dose: Not Given Sodium Chloride (Normal Saline) 1,000 mls @ 999 mls/hr IV STAT ONE Stop: 08/05/18 21:53 Last Admin: 08/05/18 21:09 Dose: 999 mls/hr Ceftriaxone Sodium/Dextrose 1 (gm/ Premix) 50 mls @ 100 mls/hr IV ONETIME ONE Stop: 08/06/18 00:44 Last Admin: 08/06/18 00:33 Dose: 100 mls/hr Sodium Chloride (Normal Saline) 1,000 mls @ 125 mls/hr IV STAT [facility] Last Admin: 08/06/18 00:35 Dose: 125 mls/hr Sodium Chloride (Normal Saline) 1,000 mls @ 125 mls/hr IV ASDIRECTED [facility] Last Admin: 08/08/18 08:20 Dose: 125 mls/hr Ceftriaxone Sodium/Dextrose 1 (gm/ Premix) 50 mls @ 100 mls/hr IV Q24H [facility] Last Admin: 08/07/18 23:35 Dose: 100 mls/hr Lorazepam (Ativan) 1 mg IVPUSH ONETIME ONE Stop: 08/05/18 20:57 Last Admin: 08/05/18 21:12 Dose: 1 mg Morphine Sulfate (Morphine) 2 mg IVPUSH Q2H PRN PRN Reason: Pain (severe 7-10) Last Admin: 08/10/18 22:24 Dose: 2 mg Trimethoprim/Sulfamethoxazole (Septra Ds) 1 tab PO BID [facility] Last Admin: 08/15/18 09:31 Dose: 1 tab - Exam Lungs: Clear to Auscultation, Normal Respiratory Effort Cardiovascular: Regular Rate, Regular Rhythm - Problem List Review Problem List Initiated/Reviewed/Updated: Yes - Plan Plan:: [facility] facility appears to have accepted the patient and likely disposition shall occur this upcoming Tuesday. Patient continues to be stable from a pain management standpoint. I saw and evaluated the patient. Discussed with resident and agree with residents findings and plan as documented in the residents note. <Felipe Mcmullen - Last Filed: 08/17/18 17:30> - Patient Data Vitals - Most Recent: Last Vital Signs Temp 36.6 C 08/17/18 12:00 Pulse 76 08/17/18 12:00 Resp 16 08/17/18 12:00 BP 102/58 L 08/17/18 12:00 Pulse Ox 100 08/17/18 12:00 I&O - Last 24 Hours: Intake & Output 08/17/18 08/17/18 08/17/18 06:59 14:59 22:59 Intake Total 900 Balance 900 Med Orders - Current: Current Medications Hydrocodone Bitart/Acetaminophen ([place] 325-10 Mg) 1 tab PO Q6H PRN PRN Reason: Pain Last Admin: 08/17/18 11:23 Dose: 1 tab Docusate Sodium (Colace) 100 mg PO DAILY PRN PRN Reason: Constipation Last Admin: 08/14/18 20:45 Dose: 100 mg Escitalopram Oxalate (Lexapro) 20 mg PO DAILY [facility] Last Admin: 08/17/18 08:54 Dose: 20 mg Gabapentin (Neurontin) 800 mg PO QID [facility] Last Admin: 08/17/18 11:24 Dose: 800 mg Hydroxyzine HCl (Atarax) 25 mg PO QID PRN PRN Reason: Anxiety Last Admin: 08/15/18 06:34 Dose: 25 mg Meloxicam (Mobic) 15 mg PO DAILY [facility] Last Admin: 08/17/18 08:47 Dose: 15 mg Metaxalone (Skelaxin) 400 mg PO QID PRN PRN Reason: pain Last Admin: 08/17/18 15:31 Dose: 400 mg Nicotine (Habitrol) 14 mg TRDERM DAILY [facility] Last Admin: 08/17/18 08:48 Dose: 14 mg Oxycodone HCl (Oxycontin) 20 mg PO BID [facility] Last Admin: 08/17/18 08:45 Dose: 20 mg Pantoprazole Sodium (Protonix) 40 mg PO ACBREAKFAST [facility] Last Admin: 08/17/18 06:37 Dose: 40 mg Rizatriptan Benzoate ([Rizatriptan] 10 Mg) 1 each PO ASDIRECTED PRN PRN Reason: migraine Potassium Chloride (Klor-Con M20) 40 meq PO DAILY [facility] Last Admin: 08/17/18 08:47 Dose: 40 meq Promethazine HCl (Phenergan) 25 mg PO Q4H PRN PRN Reason: Nausea Last Admin: 08/14/18 03:44 Dose: 25 mg Discontinued Medications Hydrocodone Bitart/Acetaminophen ([place] 325-10 Mg) 1 tab PO Q4H PRN PRN Reason: Pain Last Admin: 08/06/18 23:33 Dose: 1 tab Hydrocodone Bitart/Acetaminophen ([place] 325-10 Mg) 1 tab PO Q8H PRN PRN Reason: Pain Last Admin: 08/10/18 23:53 Dose: 1 tab Heparin Sodium (Porcine) (Heparin Sodium) 5,000 units SUBCUT Q8H [facility] Last Admin: 08/14/18 06:35 Dose: Not Given Sodium Chloride (Normal Saline) 1,000 mls @ 999 mls/hr IV STAT ONE Stop: 08/05/18 21:53 Last Admin: 08/05/18 21:09 Dose: 999 mls/hr Ceftriaxone Sodium/Dextrose 1 (gm/ Premix) 50 mls @ 100 mls/hr IV ONETIME ONE Stop: 08/06/18 00:44 Last Admin: 08/06/18 00:33 Dose: 100 mls/hr Sodium Chloride (Normal Saline) 1,000 mls @ 125 mls/hr IV STAT [facility] Last Admin: 08/06/18 00:35 Dose: 125 mls/hr Sodium Chloride (Normal Saline) 1,000 mls @ 125 mls/hr IV ASDIRECTED [facility] Last Admin: 08/08/18 08:20 Dose: 125 mls/hr Ceftriaxone Sodium/Dextrose 1 (gm/ Premix) 50 mls @ 100 mls/hr IV Q24H [facility] Last Admin: 08/07/18 23:35 Dose: 100 mls/hr Lorazepam (Ativan) 1 mg IVPUSH ONETIME ONE Stop: 08/05/18 20:57 Last Admin: 08/05/18 21:12 Dose: 1 mg Morphine Sulfate (Morphine) 2 mg IVPUSH Q2H PRN PRN Reason: Pain (severe 7-10) Last Admin: 08/10/18 22:24 Dose: 2 mg Trimethoprim/Sulfamethoxazole (Septra Ds) 1 tab PO BID [facility] Last Admin: 08/15/18 09:31 Dose: 1 tab - Plan Plan:: I was present with the resident during the history and exam. I discussed the case with the resident and agree with the findings and plan as documented in the residents note.
[2018-08-17] MEDS: hydrOXYzine HCl 25 MG Tab PO PRN (23:36)
[2018-08-18] MEDS: Acetaminophen/HYDROcodone 325-10 MG Tab PO PRN ×4 (00:33→18:49)
[2018-08-18] MEDS: Gabapentin 800 MG Tab PO SCH ×4 (06:37→23:42)
[2018-08-18] MEDS: Pantoprazole 40 MG Tab.CR PO SCH (06:38)
[2018-08-18] MEDS: Potassium Chloride 20 MEQ Tab.ER PO SCH (08:29)
[2018-08-18] MEDS: Escitalopram 10 MG Tab PO SCH (08:29)
[2018-08-18] MEDS: Meloxicam 7.5 MG Tab PO SCH (08:29)
[2018-08-18] MEDS: Nicotine 14 MG/24 Hr Patch TRDERM SCH (08:29)
[2018-08-18] MEDS: oxyCODONE ER 20 MG TAB.ER PO SCH ×2 (08:30→20:42)
--- NOTE | 2018-08-18 11:17 | PCM.PN ---
<Rohit Hurtado Z - Last Filed: 08/18/18 11:11> - General Info Date of Service: 08/18/18 Subjective Update: Stable, however is complaining of diarrhea over the last 24 hours as well as still asking for an increase in her pain medications however she does appear to be in no acute distress when speaking with the patient currently. - Patient Data Vitals - Most Recent: Last Vital Signs Temp 36.5 C 08/18/18 07:00 Pulse 80 08/18/18 07:00 Resp 17 08/18/18 07:00 BP 78/56 L 08/18/18 07:00 Pulse Ox 96 08/18/18 07:00 Weight - Most Recent: 82 kg I&O - Last 24 Hours: Intake & Output 08/17/18 08/18/18 08/18/18 22:59 06:59 14:59 Intake Total 900 700 Output Total 443 Balance 457 700 Med Orders - Current: Current Medications Hydrocodone Bitart/Acetaminophen ([place] 325-10 Mg) 1 tab PO Q6H PRN PRN Reason: Pain Last Admin: 08/18/18 06:37 Dose: 1 tab Docusate Sodium (Colace) 100 mg PO DAILY PRN PRN Reason: Constipation Last Admin: 08/14/18 20:45 Dose: 100 mg Escitalopram Oxalate (Lexapro) 20 mg PO DAILY [facility] Last Admin: 08/18/18 08:29 Dose: 20 mg Gabapentin (Neurontin) 800 mg PO QID [facility] Last Admin: 08/18/18 06:37 Dose: 800 mg Hydroxyzine HCl (Atarax) 25 mg PO QID PRN PRN Reason: Anxiety Last Admin: 08/17/18 23:36 Dose: 25 mg Meloxicam (Mobic) 15 mg PO DAILY [facility] Last Admin: 08/18/18 08:29 Dose: 15 mg Metaxalone (Skelaxin) 400 mg PO QID PRN PRN Reason: pain Last Admin: 08/18/18 01:40 Dose: 400 mg Nicotine (Habitrol) 14 mg TRDERM DAILY [facility] Last Admin: 08/18/18 08:29 Dose: 14 mg Oxycodone HCl (Oxycontin) 20 mg PO BID [facility] Last Admin: 08/18/18 08:30 Dose: 20 mg Pantoprazole Sodium (Protonix) 40 mg PO ACBREAKFAST [facility] Last Admin: 08/18/18 06:38 Dose: 40 mg Rizatriptan Benzoate ([Rizatriptan] 10 Mg) 1 each PO ASDIRECTED PRN PRN Reason: migraine Potassium Chloride (Klor-Con M20) 40 meq PO DAILY [facility] Last Admin: 08/18/18 08:29 Dose: 40 meq Promethazine HCl (Phenergan) 25 mg PO Q4H PRN PRN Reason: Nausea Last Admin: 08/14/18 03:44 Dose: 25 mg Discontinued Medications Hydrocodone Bitart/Acetaminophen ([place] 325-10 Mg) 1 tab PO Q4H PRN PRN Reason: Pain Last Admin: 08/06/18 23:33 Dose: 1 tab Hydrocodone Bitart/Acetaminophen ([place] 325-10 Mg) 1 tab PO Q8H PRN PRN Reason: Pain Last Admin: 08/10/18 23:53 Dose: 1 tab Heparin Sodium (Porcine) (Heparin Sodium) 5,000 units SUBCUT Q8H [facility] Last Admin: 08/14/18 06:35 Dose: Not Given Sodium Chloride (Normal Saline) 1,000 mls @ 999 mls/hr IV STAT ONE Stop: 08/05/18 21:53 Last Admin: 08/05/18 21:09 Dose: 999 mls/hr Ceftriaxone Sodium/Dextrose 1 (gm/ Premix) 50 mls @ 100 mls/hr IV ONETIME ONE Stop: 08/06/18 00:44 Last Admin: 08/06/18 00:33 Dose: 100 mls/hr Sodium Chloride (Normal Saline) 1,000 mls @ 125 mls/hr IV STAT [facility] Last Admin: 08/06/18 00:35 Dose: 125 mls/hr Sodium Chloride (Normal Saline) 1,000 mls @ 125 mls/hr IV ASDIRECTED [facility] Last Admin: 08/08/18 08:20 Dose: 125 mls/hr Ceftriaxone Sodium/Dextrose 1 (gm/ Premix) 50 mls @ 100 mls/hr IV Q24H [facility] Last Admin: 08/07/18 23:35 Dose: 100 mls/hr Lorazepam (Ativan) 1 mg IVPUSH ONETIME ONE Stop: 08/05/18 20:57 Last Admin: 08/05/18 21:12 Dose: 1 mg Morphine Sulfate (Morphine) 2 mg IVPUSH Q2H PRN PRN Reason: Pain (severe 7-10) Last Admin: 08/10/18 22:24 Dose: 2 mg Trimethoprim/Sulfamethoxazole (Septra Ds) 1 tab PO BID [facility] Last Admin: 08/15/18 09:31 Dose: 1 tab - Exam General: Alert, Oriented, Cooperative Lungs: Clear to Auscultation, Normal Respiratory Effort Cardiovascular: Regular Rate, Regular Rhythm GI/Abdominal Exam: Soft, Non-Tender - Problem List Review Problem List Initiated/Reviewed/Updated: Yes - Plan Plan:: 53-year-old female who was admitted secondary to urinary tract infection has received her complete dose of antibiotics while inpatient, currently awaiting [facility]. -[facility] planning on taking the patient this upcoming Tuesday. -Patient is asking for an increase in her opioid medications. She is a chronic pain patient. Currently she is on OxyContin 20 mg twice a day along with [place] 10-325 every 6 hours for breakthrough pain. Shall continue to stick with this regimen -For the patient's diarrhea will get a C. difficile panel to ensure the patient does not have C. difficile secondary to antibiotic FEN: Patient currently not on any IV fluids, last set of electrolytes checked were within normal limits, patient is currently on a regular diet DVT prophylaxis: SCDs I was present with the resident during the history and exam. I discussed the case with the resident and agree with the findings and plan as documented in the residents note. <Felipe Mcmullen - Last Filed: 08/18/18 11:33> - Patient Data Vitals - Most Recent: Last Vital Signs Temp 36.5 C 08/18/18 07:00 Pulse 80 08/18/18 07:00 Resp 17 08/18/18 07:00 BP 78/56 L 08/18/18 07:00 Pulse Ox 96 08/18/18 07:00 I&O - Last 24 Hours: Intake & Output 08/17/18 08/18/18 08/18/18 22:59 06:59 14:59 Intake Total 900 700 Output Total 443 Balance 457 700 Med Orders - Current: Current Medications Hydrocodone Bitart/Acetaminophen ([place] 325-10 Mg) 1 tab PO Q6H PRN PRN Reason: Pain Last Admin: 08/18/18 06:37 Dose: 1 tab Docusate Sodium (Colace) 100 mg PO DAILY PRN PRN Reason: Constipation Last Admin: 08/14/18 20:45 Dose: 100 mg Escitalopram Oxalate (Lexapro) 20 mg PO DAILY [facility] Last Admin: 08/18/18 08:29 Dose: 20 mg Gabapentin (Neurontin) 800 mg PO QID [facility] Last Admin: 08/18/18 06:37 Dose: 800 mg Hydroxyzine HCl (Atarax) 25 mg PO QID PRN PRN Reason: Anxiety Last Admin: 08/17/18 23:36 Dose: 25 mg Meloxicam (Mobic) 15 mg PO DAILY [facility] Last Admin: 08/18/18 08:29 Dose: 15 mg Metaxalone (Skelaxin) 400 mg PO QID PRN PRN Reason: pain Last Admin: 08/18/18 01:40 Dose: 400 mg Nicotine (Habitrol) 14 mg TRDERM DAILY [facility] Last Admin: 08/18/18 08:29 Dose: 14 mg Oxycodone HCl (Oxycontin) 20 mg PO BID [facility] Last Admin: 08/18/18 08:30 Dose: 20 mg Pantoprazole Sodium (Protonix) 40 mg PO ACBREAKFAST [facility] Last Admin: 08/18/18 06:38 Dose: 40 mg Rizatriptan Benzoate ([Rizatriptan] 10 Mg) 1 each PO ASDIRECTED PRN PRN Reason: migraine Potassium Chloride (Klor-Con M20) 40 meq PO DAILY [facility] Last Admin: 08/18/18 08:29 Dose: 40 meq Promethazine HCl (Phenergan) 25 mg PO Q4H PRN PRN Reason: Nausea Last Admin: 08/14/18 03:44 Dose: 25 mg Discontinued Medications Hydrocodone Bitart/Acetaminophen ([place] 325-10 Mg) 1 tab PO Q4H PRN PRN Reason: Pain Last Admin: 08/06/18 23:33 Dose: 1 tab Hydrocodone Bitart/Acetaminophen ([place] 325-10 Mg) 1 tab PO Q8H PRN PRN Reason: Pain Last Admin: 08/10/18 23:53 Dose: 1 tab Heparin Sodium (Porcine) (Heparin Sodium) 5,000 units SUBCUT Q8H [facility] Last Admin: 02/25/19 06:35 Dose: Not Given Sodium Chloride (Normal Saline) 1,000 mls @ 999 mls/hr IV STAT ONE Stop: 08/05/18 21:53 Last Admin: 08/05/18 21:09 Dose: 999 mls/hr Ceftriaxone Sodium/Dextrose 1 (gm/ Premix) 50 mls @ 100 mls/hr IV ONETIME ONE Stop: 08/06/18 00:44 Last Admin: 08/06/18 00:33 Dose: 100 mls/hr Sodium Chloride (Normal Saline) 1,000 mls @ 125 mls/hr IV STAT [facility] Last Admin: 08/06/18 00:35 Dose: 125 mls/hr Sodium Chloride (Normal Saline) 1,000 mls @ 125 mls/hr IV ASDIRECTED [facility] Last Admin: 08/08/18 08:20 Dose: 125 mls/hr Ceftriaxone Sodium/Dextrose 1 (gm/ Premix) 50 mls @ 100 mls/hr IV Q24H [facility] Last Admin: 08/07/18 23:35 Dose: 100 mls/hr Lorazepam (Ativan) 1 mg IVPUSH ONETIME ONE Stop: 08/05/18 20:57 Last Admin: 08/05/18 21:12 Dose: 1 mg Morphine Sulfate (Morphine) 2 mg IVPUSH Q2H PRN PRN Reason: Pain (severe 7-10) Last Admin: 08/10/18 22:24 Dose: 2 mg Trimethoprim/Sulfamethoxazole (Septra Ds) 1 tab PO BID [facility] Last Admin: 08/15/18 09:31 Dose: 1 tab - Plan Plan:: I was present with the resident during the history and exam. I discussed the case with the resident and agree with the findings and plan as documented in the residents note.
[2018-08-18] MEDS: hydrOXYzine HCl 25 MG Tab PO PRN (14:03)
[2018-08-19] MEDS: Acetaminophen/HYDROcodone 325-10 MG Tab PO PRN ×4 (00:41→18:47)
[2018-08-19] MEDS: hydrOXYzine HCl 25 MG Tab PO PRN (04:08)
[2018-08-19] MEDS: Pantoprazole 40 MG Tab.CR PO SCH (06:38)
[2018-08-19] MEDS: Gabapentin 800 MG Tab PO SCH ×3 (06:38→17:48)
--- NOTE | 2018-08-19 07:30 | PCM.PN ---
- General Info Date of Service: 08/19/18 Admission Dx/Problem (Free Text): Admission Diagnosis/Problem Admission Diagnosis/Problem UTI, Urinary tract infectious disease Subjective Update: The patient is a 53-year-old lady who is medically complex and is known to me from previous clinical visits had presented to the emergency department secondary to UTI, confusion and reportedly the patient had had worsening of her pain issues and her had reported alterations in her mental status. The patient is currently pending placement in [facility]. Today the patient says that she is doing okay although she has had episodes where her pain medications wear off in the middle of the night and she wakes up in pain. The patient has been doing okay otherwise. Functional Status: Reports: Tolerating Diet. Denies: Pain Controlled - Review of Systems General: Reports: Weakness, Fatigue, Malaise HEENT: Reports: Headaches Pulmonary: Reports: No Symptoms Cardiovascular: Reports: No Symptoms Gastrointestinal: Reports: No Symptoms Genitourinary: Reports: No Symptoms Musculoskeletal: Reports: Neck Pain, Shoulder Pain, Arm Pain, Back Pain Skin: Reports: No Symptoms Neurological: Reports: Numbness, Pre-Existing Deficit, Difficulty Walking Psychiatric: Reports: Depression - Patient Data Vitals - Most Recent: Last Vital Signs Temp 36.3 C 08/19/18 04:00 Pulse 83 08/19/18 04:00 Resp 20 08/19/18 04:00 BP 85/51 L 08/19/18 04:00 Pulse Ox 92 L 08/19/18 04:00 Weight - Most Recent: 82 kg I&O - Last 24 Hours: Intake & Output 08/18/18 08/19/18 08/19/18 22:59 06:59 14:59 Intake Total 2072 836 Output Total 1353 Balance 2072 -517 Chace Results Last 24 Hours: Microbiology 08/18/18 17:45 Clostridium difficile Toxin A & B - Final Stool / Feces Negative for C.Diff Toxin/AG Med Orders - Current: Current Medications Hydrocodone Bitart/Acetaminophen ([place] 325-10 Mg) 1 tab PO Q6H PRN PRN Reason: Pain Last Admin: 08/19/18 06:38 Dose: 1 tab Docusate Sodium (Colace) 100 mg PO DAILY PRN PRN Reason: Constipation Last Admin: 08/14/18 20:45 Dose: 100 mg Escitalopram Oxalate (Lexapro) 20 mg PO DAILY [facility] Last Admin: 08/18/18 08:29 Dose: 20 mg Gabapentin (Neurontin) 800 mg PO QID [facility] Last Admin: 08/19/18 06:38 Dose: 800 mg Hydroxyzine HCl (Atarax) 25 mg PO QID PRN PRN Reason: Anxiety Last Admin: 08/19/18 04:08 Dose: 25 mg Meloxicam (Mobic) 15 mg PO DAILY [facility] Last Admin: 08/18/18 08:29 Dose: 15 mg Metaxalone (Skelaxin) 400 mg PO QID PRN PRN Reason: pain Last Admin: 08/19/18 04:08 Dose: 400 mg Nicotine (Habitrol) 14 mg TRDERM DAILY [facility] Last Admin: 08/18/18 08:29 Dose: 14 mg Oxycodone HCl (Oxycontin) 20 mg PO BID [facility] Last Admin: 08/18/18 20:42 Dose: 20 mg Pantoprazole Sodium (Protonix) 40 mg PO ACBREAKFAST [facility] Last Admin: 08/19/18 06:38 Dose: 40 mg Rizatriptan Benzoate ([Rizatriptan] 10 Mg) 1 each PO ASDIRECTED PRN PRN Reason: migraine Potassium Chloride (Klor-Con M20) 40 meq PO DAILY [facility] Last Admin: 08/18/18 08:29 Dose: 40 meq Promethazine HCl (Phenergan) 25 mg PO Q4H PRN PRN Reason: Nausea Last Admin: 08/14/18 03:44 Dose: 25 mg Discontinued Medications Hydrocodone Bitart/Acetaminophen ([place] 325-10 Mg) 1 tab PO Q4H PRN PRN Reason: Pain Last Admin: 08/06/18 23:33 Dose: 1 tab Hydrocodone Bitart/Acetaminophen ([place] 325-10 Mg) 1 tab PO Q8H PRN PRN Reason: Pain Last Admin: 08/10/18 23:53 Dose: 1 tab Heparin Sodium (Porcine) (Heparin Sodium) 5,000 units SUBCUT Q8H [facility] Last Admin: 08/14/18 06:35 Dose: Not Given Sodium Chloride (Normal Saline) 1,000 mls @ 999 mls/hr IV STAT ONE Stop: 08/05/18 21:53 Last Admin: 08/05/18 21:09 Dose: 999 mls/hr Ceftriaxone Sodium/Dextrose 1 (gm/ Premix) 50 mls @ 100 mls/hr IV ONETIME ONE Stop: 08/06/18 00:44 Last Admin: 08/06/18 00:33 Dose: 100 mls/hr Sodium Chloride (Normal Saline) 1,000 mls @ 125 mls/hr IV STAT [facility] Last Admin: 08/06/18 00:35 Dose: 125 mls/hr Sodium Chloride (Normal Saline) 1,000 mls @ 125 mls/hr IV ASDIRECTED [facility] Last Admin: 08/08/18 08:20 Dose: 125 mls/hr Ceftriaxone Sodium/Dextrose 1 (gm/ Premix) 50 mls @ 100 mls/hr IV Q24H [facility] Last Admin: 08/07/18 23:35 Dose: 100 mls/hr Lorazepam (Ativan) 1 mg IVPUSH ONETIME ONE Stop: 08/05/18 20:57 Last Admin: 08/05/18 21:12 Dose: 1 mg Morphine Sulfate (Morphine) 2 mg IVPUSH Q2H PRN PRN Reason: Pain (severe 7-10) Last Admin: 08/10/18 22:24 Dose: 2 mg Trimethoprim/Sulfamethoxazole (Septra Ds) 1 tab PO BID [facility] Last Admin: 08/15/18 09:31 Dose: 1 tab - Exam Quality Assessment: No: Supplemental Oxygen General: Alert, Oriented HEENT: Pupils Equal, Pupils Reactive Neck: Supple, Trachea Midline, No JVD Lungs: Clear to Auscultation, Normal Respiratory Effort Cardiovascular: Regular Rate, Regular Rhythm GI/Abdominal Exam: Normal Bowel Sounds, Soft, Non-Tender, No Distention (Female) Exam: Deferred Back Exam: No: Normal Inspection (Multiple surgeries and spine. Decreased range of motion.), Full Range of Motion Extremities: No Pedal Edema, Normal Capillary Refill. No: Normal Inspection, Normal Range of Motion (Spastic paralysis) Skin: Warm, Dry, Intact Neurological: No New Focal Deficit. 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 SNOMED Code(s): 9717166 Code(s): G82.20 - PARAPLEGIA, UNSPECIFIED Status: Chronic Priority: High Current Visit: Yes (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 Code(s): G83.9 - PARALYTIC SYNDROME, UNSPECIFIED Status: Chronic Priority : High Current Visit: Yes (5) Back pain SNOMED Code(s): 519837753 Code(s): M54.9 - DORSALGIA, UNSPECIFIED Status: Chronic Priority: High Current Visit: Yes Qualifiers: Back pain location: low back pain Chronicity: unspecified Back pain laterality: midline Sciatica presence: without sciatica Qualified Code(s): M54.5 - Low back pain (6) Mobility impaired SNOMED Code(s): 07822307 Code(s): Z74.09 - OTHER REDUCED MOBILITY Status: Chronic Priority: High Current Visit: Yes (7) Self-care deficit for feeding, bathing, and toileting SNOMED Code(s): 420902067, [id number], [id number], [id number] Code(s): Z74.1 - NEED FOR ASSISTANCE WITH PERSONAL CARE Status: Chronic Priority: High Current Visit: Yes - Problem List Review Problem List Initiated/Reviewed/Updated: Yes - Plan Plan:: The patient is a 53-year-old lady with chronic medical conditions who appears much older than her stated age. She is currently awaiting placement for rehabilitation. The patient's hasn't been able to take care of her and she is not able to meet her ADLs. The patient's previously noted urinary tract infection has resolved. For now we'll continue with the current plan of care. The patient has been encouraged to continue with physical therapy. The patient will continue with her current pain control. Laboratory testings a been ordered. The patient should be appropriate for discharge to [facility] facility Tuesday.
[2018-08-19] MEDS: Nicotine 14 MG/24 Hr Patch TRDERM SCH (08:32)
[2018-08-19] MEDS: Escitalopram 10 MG Tab PO SCH (08:34)
[2018-08-19] MEDS: Meloxicam 7.5 MG Tab PO SCH (08:34)
[2018-08-19] MEDS: Potassium Chloride 20 MEQ Tab.ER PO SCH (08:34)
[2018-08-19] MEDS: oxyCODONE ER 20 MG TAB.ER PO SCH ×2 (08:34→21:09)
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
[2018-08-20] MEDS: Pantoprazole 40 MG Tab.CR PO SCH (10:39)
[2018-08-20] MEDS: Gabapentin 800 MG Tab PO SCH ×4 (10:39→23:40)
[2018-08-20] MEDS: Escitalopram 10 MG Tab PO SCH (10:40)
[2018-08-20] MEDS: Potassium Chloride 20 MEQ Tab.ER PO SCH (10:40)
[2018-08-20] MEDS: Meloxicam 7.5 MG Tab PO SCH (10:40)
[2018-08-20] MEDS: Nicotine 14 MG/24 Hr Patch TRDERM SCH (10:40)
[2018-08-20] MEDS: oxyCODONE ER 20 MG TAB.ER PO SCH ×2 (10:40→20:04)
[2018-08-20] MEDS: Acetaminophen/HYDROcodone 325-10 MG Tab PO PRN (12:59)
[2018-08-20] MEDS: hydrOXYzine HCl 25 MG Tab PO PRN (12:59)
[2018-08-20] MEDS: oxyCODONE 5 MG Tab PO PRN ×2 (16:05→23:39)
[2018-08-21] MEDS: Acetaminophen/HYDROcodone 325-10 MG Tab PO PRN ×3 (02:11→17:17)
[2018-08-21] MEDS: oxyCODONE 5 MG Tab PO PRN ×3 (06:37→19:50)
[2018-08-21] MEDS: Gabapentin 800 MG Tab PO SCH ×4 (06:37→23:42)
[2018-08-21] MEDS: Pantoprazole 40 MG Tab.CR PO SCH (06:37)
[2018-08-21] MEDS: oxyCODONE ER 20 MG TAB.ER PO SCH ×2 (08:41→22:05)
[2018-08-21] MEDS: Meloxicam 7.5 MG Tab PO SCH (08:41)
[2018-08-21] MEDS: Potassium Chloride 20 MEQ Tab.ER PO SCH (08:41)
[2018-08-21] MEDS: Escitalopram 10 MG Tab PO SCH (08:41)
[2018-08-21] MEDS: Nicotine 14 MG/24 Hr Patch TRDERM SCH (08:42)
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
[2018-08-21] MEDS: Docusate Sodium 100 MG Cap PO PRN ×2 (11:17→19:50)
[2018-08-21 23:44] VITALS: BP 111/54
[2018-08-22] MEDS: Acetaminophen/HYDROcodone 325-10 MG Tab PO PRN ×2 (01:03→09:31)
[2018-08-22] MEDS: Pantoprazole 40 MG Tab.CR PO SCH (06:32)
[2018-08-22] MEDS: Gabapentin 800 MG Tab PO SCH (06:34)
[2018-08-22] MEDS: oxyCODONE 5 MG Tab PO PRN (06:35)
[2018-08-22] MEDS: Escitalopram 10 MG Tab PO SCH (09:20)
[2018-08-22] MEDS: oxyCODONE ER 20 MG TAB.ER PO SCH (09:20)
[2018-08-22] MEDS: Meloxicam 7.5 MG Tab PO SCH (09:21)
[2018-08-22] MEDS: Potassium Chloride 20 MEQ Tab.ER PO SCH (09:22)
[2018-08-22] MEDS: Nicotine 14 MG/24 Hr Patch TRDERM SCH (09:22)
--- NOTE | 2018-08-22 09:38 | PCM.DCSUM1 ---
Discharge Summary - Hospital Course HPI Initial Comments: Discharge Summary Date of admission: 08/06/18 Date of discharge: 08/22/18 Admitting diagnosis: #1. Altered mental status secondary to dehydration and urinary tract infection #2. Past medical history of TBI resulting in significant decrease in ADLs and physical abilities with significant pain management issues #3. #4. #5. Discharge diagnoses: #1. Urinary tract infection resolved and fully treated #2. Past medical history of TBI resulting in significant decrease in ADLs and physical ability with chronic pain management concerns #3. Patient being transferred to [facility] for long-term care due to #2 #4. #5. Consultations: None Procedures: None Hospitalization course: Patient was admitted and started on ceftriaxone for her urinary tract infection, urine cultures were obtained upon admission and patient was continued to be treated with Rocephin until urine cultures came back growing Escherichia coli that was sensitive to the antibiotic regimen and it was continued until patient received full therapeutic dose. 2 days after the completion of antibiotics patient did have a episode of diarrhea and a stool culture was obtained and was negative for C. difficile infection. The primary concern became the pain management issue for this patient secondary to her traumatic brain injury which had resulted in significant physical disability and chronic pain. Patient was on a very high-dose of both short acting on long- acting opioids as well as a long-term dose of baclofen, baclofen was slowly tapered down, patient's opioid medications were also decreased in terms of her home dose patient was on OxyContin 20 mg extended release twice a day as well as Narco 10-325mg every 6 hours. Physical therapy and occupational therapy did work with the patient but given that the patient does not have the ability to ambulate most of the therapy was done of the upper extremities, physical therapy did feel that the patient was at the most optimal level given her physical ability had condition. Primary issue became disposition as the family did not have the ability to adequately take care of her at home due to her increased need given her physical condition and chronic pain. As such, initial attempt was made for the patient to be admitted over to [facility] however after assessing the patient [facility] declined to take the patient. Initially after the care home a declined there was a consideration of home health for the patient however family and patient were extremely worried that home health would not be enough given the patient's physical condition and she needed a higher level of care from a long-term standpoint. Case management then got in touch with [facility] and after the care home completed their evaluation process have accepted the patient for admission. On date of discharge patient was hemodynamically stable, afebrile, not having any nausea vomiting diarrhea or constipation. Patient's pain management was well managed and patient was then subsequently discharged to [facility]. A list of medications that are to be continued this further down on this documentation. Diagnosis: Stroke: No Modified [place] Scale: No Symptoms at All Modified Radha Scale Score: 0 - Discharge Data Discharge Date: 08/22/18 Discharge Disposition: DC/Tfer to [facility] 63 Condition: Fair - Patient Summary/Data Consults: Consultations 08/08/18 09:00 Consult to Home Health [CONS] Routine 08/08/18 11:01 Consult to Physical Therapy [PT Evaluation and Treatment] [CONS] Routine 08/10/18 11:25 OT Evaluation and Treatment [CONS] Routine - Patient Instructions Diet: Regular Diet as Tolerated Activity: As Tolerated Driving: Do Not Drive Showering/Bathing: May Shower Notify Provider of: Fever, Increased Pain, Swelling and Redness, Drainage, Nausea and/or Vomiting - Discharge Plan Home Medications: Home Meds Escitalopram [Lexapro] 20 mg PO DAILY 08/03/18 [History] Gabapentin [Neurontin] 800 mg PO QID 08/03/18 [History] Meloxicam 15 mg PO DAILY 08/03/18 [History] Metaxalone [Metaxall] 400 mg PO QID PRN 08/03/18 [History] Pantoprazole Sodium [Protonix] 20 mg PO DAILY 08/03/18 [History] Promethazine [Phenergan] 25 mg PO Q4H PRN 08/03/18 [History] hydrOXYzine HCl [hydrOXYzine] 25 mg PO QID PRN 08/03/18 [History] traMADol [Ultram] 100 mg PO Q6H PRN 08/03/18 [History] Rizatriptan Benzoate [Rizatriptan] 10 mg PO ASDIRECTED PRN 08/06/18 [History] Loratadine/Pseudoephedrine [Loratadine-D 24Hr Tablet] 1 tab PO DAILY PRN [History] Gabapentin [Neurontin] 800 mg PO QID tablet 08/22/18 [Rx] Hydrocodone/Acetaminophen [Hydrocodon-Acetaminophn 10-325] 10 - 325 mg PO Q6H PRN #0 08/22/18 [Rx] oxyCODONE ER [OxyCONTIN] 20 mg PO BID tab.er 08/22/18 [Rx] Oxygen Therapy Mode: Room Air Patient Handouts: Back Pain, Adult, Urinary Tract Infection, Adult, Easy-to- Read - Discharge Summary/Plan Comment DC Time >30 min.: No - Patient Data Vitals - Most Recent: Last Vital Signs Temp 36.2 C 08/21/18 23:43 Pulse 76 08/21/18 23:43 Resp 14 08/21/18 23:43 BP 111/54 L 08/21/18 23:43 Pulse Ox 98 08/21/18 23:43 Weight - Most Recent: 82 kg I&O - Last 24 hours: Intake & Output 08/21/18 08/22/18 08/22/18 22:59 06:59 14:59 Intake Total 750 Output Total 369 Balance 381 Med Orders - Current: Current Medications Hydrocodone Bitart/Acetaminophen ([place] 325-10 Mg) 1 tab PO Q6H PRN PRN Reason: Pain Last Admin: 08/22/18 09:31 Dose: 1 tab Docusate Sodium (Colace) 100 mg PO DAILY PRN PRN Reason: Constipation Last Admin: 08/21/18 19:50 Dose: 100 mg Escitalopram Oxalate (Lexapro) 20 mg PO DAILY [facility] Last Admin: 08/22/18 09:20 Dose: 20 mg Gabapentin (Neurontin) 800 mg PO QID [facility] Last Admin: 08/22/18 06:34 Dose: 800 mg Hydroxyzine HCl (Atarax) 25 mg PO QID PRN PRN Reason: Anxiety Last Admin: 08/20/18 12:59 Dose: 25 mg Meloxicam (Mobic) 15 mg PO DAILY [facility] Last Admin: 08/22/18 09:21 Dose: 15 mg Metaxalone (Skelaxin) 400 mg PO QID PRN PRN Reason: pain Last Admin: 08/21/18 02:11 Dose: 400 mg Nicotine (Habitrol) 14 mg TRDERM DAILY [facility] Last Admin: 08/22/18 09:22 Dose: 14 mg Oxycodone HCl (Oxycontin) 20 mg PO BID [facility] Last Admin: 08/22/18 09:20 Dose: 20 mg Oxycodone HCl (Oxycodone) 5 mg PO Q4H PRN PRN Reason: Pain (moderate 4-6) Last Admin: 08/22/18 06:35 Dose: 5 mg Pantoprazole Sodium (Protonix) 40 mg PO ACBREAKFAST [facility] Last Admin: 08/22/18 06:32 Dose: 40 mg Rizatriptan Benzoate ([Rizatriptan] 10 Mg) 1 each PO ASDIRECTED PRN PRN Reason: migraine Potassium Chloride (Klor-Con M20) 40 meq PO DAILY [facility] Last Admin: 08/22/18 09:22 Dose: 40 meq Promethazine HCl (Phenergan) 25 mg PO Q4H PRN PRN Reason: Nausea Last Admin: 08/14/18 03:44 Dose: 25 mg Discontinued Medications Hydrocodone Bitart/Acetaminophen ([place] 325-10 Mg) 1 tab PO Q4H PRN PRN Reason: Pain Last Admin: 08/06/18 23:33 Dose: 1 tab Hydrocodone Bitart/Acetaminophen ([place] 325-10 Mg) 1 tab PO Q8H PRN PRN Reason: Pain Last Admin: 08/10/18 23:53 Dose: 1 tab Heparin Sodium (Porcine) (Heparin Sodium) 5,000 units SUBCUT Q8H [facility] Last Admin: 08/14/18 06:35 Dose: Not Given Sodium Chloride (Normal Saline) 1,000 mls @ 999 mls/hr IV STAT ONE Stop: 08/05/18 21:53 Last Admin: 08/05/18 21:09 Dose: 999 mls/hr Ceftriaxone Sodium/Dextrose 1 (gm/ Premix) 50 mls @ 100 mls/hr IV ONETIME ONE Stop: 08/06/18 00:44 Last Admin: 08/06/18 00:33 Dose: 100 mls/hr Sodium Chloride (Normal Saline) 1,000 mls @ 125 mls/hr IV STAT [facility] Last Admin: 08/06/18 00:35 Dose: 125 mls/hr Sodium Chloride (Normal Saline) 1,000 mls @ 125 mls/hr IV ASDIRECTED [facility] Last Admin: 08/08/18 08:20 Dose: 125 mls/hr Ceftriaxone Sodium/Dextrose 1 (gm/ Premix) 50 mls @ 100 mls/hr IV Q24H [facility] Last Admin: 08/07/18 23:35 Dose: 100 mls/hr Lorazepam (Ativan) 1 mg IVPUSH ONETIME ONE Stop: 08/05/18 20:57 Last Admin: 08/05/18 21:12 Dose: 1 mg Morphine Sulfate (Morphine) 2 mg IVPUSH Q2H PRN PRN Reason: Pain (severe 7-10) Last Admin: 08/10/18 22:24 Dose: 2 mg Trimethoprim/Sulfamethoxazole (Septra Ds) 1 tab PO BID [facility] Last Admin: 08/15/18 09:31 Dose: 1 tab
== END 2018-08-22 10:08 | DRG 689 ==
LOC: MW.ED 20:48 → MW.MS 08-06 00:47
PROVIDERS: ADMIT Internal Medicine; ATTEND Internal Medicine
DX: N39.0 Urinary tract infection, site not specified (principal); G80.0 Spastic quadriplegic cerebral palsy; N17.9 Acute kidney failure, unspecified; B96.20 Unspecified Escherichia coli [E. coli] as the cause of diseases classified elsewhere; E86.0 Dehydration; Z87.820 Personal history of traumatic brain injury; F10.21 Alcohol dependence, in remission; G80.9 Cerebral palsy, unspecified; M54.5 Low back pain; G89.29 Other chronic pain; M54.2 Cervicalgia; R19.7 Diarrhea, unspecified; Z74.09 Other reduced mobility; Z74.1 Need for assistance with personal care; F32.9 Major depressive disorder, single episode, unspecified; G62.9 Polyneuropathy, unspecified; H91.90 Unspecified hearing loss, unspecified ear; M19.90 Unspecified osteoarthritis, unspecified site; I10 Essential (primary) hypertension; Z88.1 Allergy status to other antibiotic agents; Z88.5 Allergy status to narcotic agent; Z88.0 Allergy status to penicillin; Z88.2 Allergy status to sulfonamides; Z79.891 Long term (current) use of opiate analgesic; Z79.899 Other long term (current) drug therapy
CPT/HCPCS: 36415; 70450; 70450-26; 71045; 71045-26; 80048; 80053; 80305-QW; 81001; 83690; 84484; 85025; 87086; 87088; 87186; 87324; 96361; 96365; 96375; 97110-GP; 97163-GP; 99285; 99285-25; A9270-GY; G0480; J0696; J1644; J2060; J2270; J7040

== ENCOUNTER 2018-11-29 11:22 | Emergency (ER) | payer MEDICAID, OTHER ==
[2018-11-29 11:42] VITALS: BP 105/58
[2018-11-29] MEDS ORDERED: Lidocaine 1% 10 ML MDV INJECT ONE (11:43)
[2018-11-29] MEDS ORDERED: Bacitracin Oint 1 GM U/D Packet TOP ONE (11:44)
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
--- NOTE | 2018-11-29 12:42 | CR ---
EXAMINATION: Right foot HISTORY: Pain COMPARISON: Ankle dated 08/15/2014 TECHNIQUE: 2 views FINDINGS/IMPRESSION: Overall the osseous structures are within the right foot appear osteopenic without a fracture or acute osseous abnormality demonstrated. Mild generalized soft tissue swelling without a foreign body. Joint spaces are grossly preserved.
--- NOTE | 2018-11-29 13:59 | CR ---
EXAMINATION: Right foot HISTORY: Foreign body COMPARISON: 11/29/2018 TECHNIQUE: 2 views FINDINGS/IMPRESSION: There is a curvilinear metallic foreign body projecting along the dorsal aspect of the first interphalangeal joint with adjacent soft tissue swelling. Otherwise the visualized osseous structures appear osteopenic. No fracture or acute osseous abnormality is noted.
== END 2018-11-29 15:59 | disposition other institution (70) ==
LOC: MW.ED 11:22
DX: S91.321A Laceration with foreign body, right foot, initial encounter (principal); I10 Essential (primary) hypertension; F32.9 Major depressive disorder, single episode, unspecified; Z79.899 Other long term (current) drug therapy; Z88.6 Allergy status to analgesic agent; Z88.1 Allergy status to other antibiotic agents; Z88.2 Allergy status to sulfonamides; Z99.3 Dependence on wheelchair; Z88.8 Allergy status to other drugs, medicaments and biological substances; Z88.0 Allergy status to penicillin; W22.8XXA Striking against or struck by other objects, initial encounter; Y92.511 Restaurant or cafe as the place of occurrence of the external cause
CPT/HCPCS: 12002; 73620; 99284; J2001

== ENCOUNTER 2019-01-30 06:15 | Emergency (ER) | payer MEDICAID ==
[2019-01-30] MEDS ORDERED: Sodium Chloride 0.9% 2.5 ML Syringe FLUSH PRN (06:34)
[2019-01-30] MEDS ORDERED: Sodium Chloride 0.9% 10 ML Syringe FLUSH PRN (06:34)
--- NOTE | 2019-01-30 06:43 | EDM.PDOC ---
<Laura Alford - Last Filed: 01/30/19 06:55> ED HPI GENERAL MEDICAL PROBLEM - General Chief Complaint: General Stated Complaint: GENERAL PAIN Time Seen by Provider: 01/30/19 06:21 - History of Present Illness INITIAL COMMENTS - FREE TEXT/NARRATIVE: HISTORY AND PHYSICAL: History of present illness: The patient is a 53-year-old female who has a history of cerebral palsy chronic back pain and who is either bed or wheelchair ridden and takes multiple medications for chronic pain and presents with via EMS with waking from sleep saying that her left arm was burning which has now subsided and overall decrease activity over the last 1-2 days per the . He says that she has not been quite herself over the last 1-2 days but she has not had a fever vomiting abdominal pain chest pain or shortness of breath and no cough or other complaints. He says that she was placed in the [facility] at [place] after her admission here the beginning of August and she was there until November when they took her out. She has been at home since and according to his conversation with me they have had difficulties getting home health set up due to a lot of logistical issues per his testimony. He has been caring for her at home trying to do basic physical therapy and keeping her clean. He says that she has no breakdown on her back or buttocks. He tells me that currently in the ED she is more at her baseline and more interactive but this morning she seemed less herself and he was concerned about ear infection especially a UTI. She has had UTIs in the past and he says that he was always told to keep an eye on that. He says that she has been drinking fluids and eating normally and currently in the ED she is more at her baseline. When I ask her questions she says that she is not having much pain at all and it is not significant family different than her baseline. She denies chest pain shortness of breath or abdominal pain. According to the when EMS arrived and this morning he just thought that she was not quite herself which is why he called them but now he feels more comfortable she is at her baseline. Review of systems: As per history of present illness and below otherwise all systems reviewed and negative. Past medical history: As per history of present illness and as reviewed below otherwise noncontributory. Surgical history: As per history of present illness and as reviewed below otherwise noncontributory. Social history: No reported history of drug or alcohol abuse. Family history: As per history of present illness and as reviewed below otherwise noncontributory. Physical exam: General: Well-developed well-nourished female who answers simple questions yes or no and gives me simple answers and tracks with her eyes and smiles and is interactive. HEENT: Atraumatic, normocephalic, pupils reactive, negative for conjunctival pallor or scleral icterus, mucous membranes moist, throat clear, neck supple, nontender, trachea midline. Lungs: Clear to auscultation with diminished breath sounds in the bases but no worker breathing stridor or wheezing, breath sounds equal bilaterally, chest nontender. Heart: S1S2, regular, negative for clicks, rubs, or JVD. Abdomen: Soft, nondistended, nontender. Bowel sounds are hypoactive Negative for masses or hepatosplenomegaly. Negative for costovertebral tenderness. Pelvis: Stable nontender. Genitourinary: Deferred. Rectal: Deferred. Extremities: Atraumatic, negative for cords or calf pain. Patient has increased tone throughout all extremities but there is no palpable bony defects deformities or tenderness. More specifically at the left upper extremity the compartments are soft and there is no soft tissue swelling nor any tenderness with palpation or range of motion. Neurovascular unremarkable. The patient has visible contracture in hands and her upper extremities, again which is not new. Lower extremities does have increased tone throughout with some mild atrophy appreciated. Neuro: Awake, alert, and at her baseline per the Cranial nerves II through XII unremarkable. Cerebellum difficult to evaluate Motor and sensory unremarkable throughout as can be tested but according to her everything is at baseline and she has little mobility in her legs spontaneously per history and minimal movement of her upper extremities.. Exam nonfocal. Skin: No overt rashes or lesions and turgor is normal Diagnostics: EKG CBC CMP lactic acid UA with micro-chest x-ray troponin CT scan of the head Therapeutics: IV O2 monitor IV fluids Initially EMS called us and stated that they were being discharged for pain management issues when actually the is more concerned about infection and decrease activity and patient not being herself for the last 1-2 days. Case is endorsed to Dr. Taylor at 7 AM to follow-up the workup and disposition the patient pending those results Impression: Increased generalized weakness and low activity, history of chronic pain bedridden and cerebral palsy Definitive disposition and diagnosis as appropriate pending reevaluation and review of above. - Related Data Allergies Allergy/AdvReac Type Severity Reaction Status Date / Time amitriptyline Allergy Rash Verified 01/30/19 06:27 aspirin Allergy Nausea Verified 01/30/19 06:27 azithromycin Allergy Swelling Verified 01/30/19 06:27 [From Zithromax Z-Paul] ciprofloxacin Allergy Rash Verified 01/30/19 06:27 codeine Allergy Nausea Verified 01/30/19 06:27 erythromycin base Allergy Rash Verified 01/30/19 06:27 [Erythromycin Base] ibuprofen Allergy Nausea Verified 01/30/19 06:27 Penicillins Allergy Rash Verified 01/30/19 06:27 Sulfa (Sulfonamide Allergy Rash Verified 01/30/19 06:27 Antibiotics) tizanidine [Tizanidine] Allergy Rash Verified 01/30/19 06:27 Home Meds: Home Meds Escitalopram [Lexapro] 20 mg PO DAILY 08/03/18 [History] Meloxicam 15 mg PO DAILY 08/03/18 [History] Pantoprazole Sodium [Protonix] 20 mg PO DAILY 08/03/18 [History] Promethazine [Phenergan] 25 mg PO Q4H PRN 08/03/18 [History] hydrOXYzine HCl [hydrOXYzine] 25 mg PO QID PRN 08/03/18 [History] traMADol [Ultram] 100 mg PO Q6H PRN 08/03/18 [History] Rizatriptan Benzoate [Rizatriptan] 10 mg PO ASDIRECTED PRN 08/06/18 [History] Gabapentin [Neurontin] 800 mg PO QID tablet 08/22/18 [Rx] Baclofen 800 mg PO QID 01/30/19 [History] Past Medical History HEENT History: Reports: Hard of Hearing Cardiovascular History: Reports: Hypertension Respiratory History: Reports: Bronchitis, Recurrent Other Gastrointestinal History: opoiod induced constipation Genitourinary History: Reports: UTI, Recurrent [employer] History: Reports: Musculoskeletal History: Reports: Back Pain, Chronic, Fracture, Osteoarthritis Other Musculoskeletal History: fx lower back Neurological History: Reports: Cerebral Palsy, Concussion, Migraines, Neuropathy , Peripheral Psychiatric History: Reports: Depression - Infectious Disease History Infectious Disease History: Reports: Chicken Pox, Hepatitis C, Measles - Past Surgical History HEENT Surgical History: Reports: None Cardiovascular Surgical History: Reports: None Respiratory Surgical History: Reports: None GI Surgical History: Reports: None Female Surgical History: Reports: Section Neurological Surgical History: Reports: None Musculoskeletal Surgical History: Reports: None, Arthroscopic Procedure, Hip Replacement, Other (See Below) Other Musculoskeletal Surgeries/Procedures:: quadrapeligic Social & Family History - Family History Family Medical History: Noncontributory - Tobacco Use Smoking Status *Q: Never Smoker - Caffeine Use Caffeine Use: Reports: Coffee - Recreational Drug Use Recreational Drug Use: No ED ROS GENERAL - Review of Systems Review Of Systems: ROS reveals no pertinent complaints other than HPI. ED EXAM, GENERAL - Physical Exam Exam: See Below (See dictation) Course - Vital Signs Last Recorded V/S: Last Vital Signs Temp 96.5 F 01/30/19 06:18 Pulse 85 01/30/19 06:18 Resp 18 01/30/19 06:18 BP 126/71 01/30/19 06:18 Pulse Ox 95 01/30/19 06:18 - Orders/Labs/Meds Orders: Active Orders 24 hr Category Date Time Status Cardiac Monitoring [RC] . DIRECTED Care 01/30/19 06:33 Active EKG Documentation Completion [RC] STAT Care 01/30/19 06:33 Active Oxygen Therapy, ED [RC] ASDIRECTED Care 01/30/19 06:33 Active Pulse Oximetry [RC] ASDIRECTED Care 01/30/19 06:33 Active Sodium Chloride 0.9% [Normal Saline] 500 ml Med 01/30/19 06:45 Active IV STAT Sodium Chloride 0.9% [Saline Flush] Med 01/30/19 06:34 Active 10 ml FLUSH ASDIRECTED PRN Sodium Chloride 0.9% [Saline Flush] Med 01/30/19 06:34 Active 2.5 ml FLUSH ASDIRECTED PRN Saline Lock Insert [OM.PC] Stat Oth 01/30/19 06:33 Ordered Medication Orders Sodium Chloride (Normal Saline) 500 mls @ 999 mls/hr IV STAT ZACKARY Last Infusion: 01/30/19 07:22 Dose: 500 mls/hr Admin: 01/30/19 07:21 Dose: 999 mls/hr Sodium Chloride (Saline Flush) 10 ml FLUSH ASDIRECTED PRN PRN Reason: Keep Vein Open Last Admin: 01/30/19 07:21 Dose: 10 ml Sodium Chloride (Saline Flush) 2.5 ml FLUSH ASDIRECTED PRN PRN Reason: Keep Vein Open Last Admin: 01/30/19 07:21 Dose: 2.5 ml Labs: Laboratory Tests 01/30/19 01/30/19 01/30/19 Range/Units 07:15 07:15 07:15 WBC 6.96 (4.0-11.0) K/uL RBC 4.79 (4.30-5.90) M/uL Hgb 14.5 (12.0-16.0) g/dL Hct 43.3 (36.0-46.0) % MCV 90.4 (80.0-98.0) fL MCH 30.3 (27.0-32.0) pg MCHC 33.5 (31.0-37.0) g/dL RDW Std Deviation 43.8 (28.0-62.0) fl RDW Coeff of Ros 13 (11.0-15.0) % Plt Count 95 L (150-400) K/uL MPV 9.20 (7.40-12.00) fL Neut % (Auto) 65.7 (48.0-80.0) % Lymph % (Auto) 24.1 (16.0-40.0) % [place] % (Auto) 6.0 (0.0-15.0) % Eos % (Auto) 3.6 (0.0-7.0) % Baso % (Auto) 0.6 (0.0-1.5) % Neut # (Auto) 4.6 (1.4-5.7) K/uL Lymph # (Auto) 1.7 (0.6-2.4) K/uL [place] # (Auto) 0.4 (0.0-0.8) K/uL Eos # (Auto) 0.3 (0.0-0.7) K/uL Baso # (Auto) 0.0 (0.0-0.1) K/uL Nucleated RBC % 0.0 /100WBC Nucleated RBCs # 0 K/uL Lactate 1.1 (0.20-2.00) mmol/L Sodium 143 (136-145) mmol/L Potassium 4.6 (3.5-5.1) mmol/L Chloride 107 (98-107) mmol/L Carbon Dioxide 28.7 (21.0-32.0) mmol/L BUN 15 (7.0-18.0) mg/dL Creatinine 0.7 (0.6-1.0) mg/dL Est Cr Clr Drug Dosing TNP Estimated GFR (MDRD) > 60.0 ml/min Glucose 87 (74-106) mg/dL Calcium 9.6 (8.5-10.1) mg/dL Total Bilirubin 0.5 (0.2-1.0) mg/dL AST 25 (15-37) IU/L ALT 28 (14-63) IU/L Alkaline Phosphatase 92 (46-116) U/L Troponin I < 0.050 (0.000-0.056) ng/mL Total Protein 7.4 (6.4-8.2) g/dL Albumin 3.6 (3.4-5.0) g/dL Globulin 3.8 (2.6-4.0) g/dL Albumin/Globulin Ratio 0.9 (0.9-1.6) Urine Color Urine Appearance Urine pH (5.0-8.0) Ur Specific [place] (1.001-1.035) Urine Protein (NEGATIVE) mg/dL Urine Glucose (UA) (NEGATIVE) mg/dL Urine Ketones (NEGATIVE) mg/dL Urine Occult Blood (NEGATIVE) Urine Nitrite (NEGATIVE) Urine Bilirubin (NEGATIVE) Urine Urobilinogen (<2.0) EU/dL Ur Leukocyte Esterase (NEGATIVE) Urine RBC (0-2/HPF) Urine WBC (0-5/HPF) Ur Epithelial Cells (NONE-FEW) Urine Bacteria (NEGATIVE) 01/30/19 Range/Units 07:50 WBC (4.0-11.0) K/uL RBC (4.30-5.90) M/uL Hgb (12.0-16.0) g/dL Hct (36.0-46.0) % MCV (80.0-98.0) fL MCH (27.0-32.0) pg MCHC (31.0-37.0) g/dL RDW Std Deviation (28.0-62.0) fl RDW Coeff of Ros (11.0-15.0) % Plt Count (150-400) K/uL MPV (7.40-12.00) fL Neut % (Auto) (48.0-80.0) % Lymph % (Auto) (16.0-40.0) % [place] % (Auto) (0.0-15.0) % Eos % (Auto) (0.0-7.0) % Baso % (Auto) (0.0-1.5) % Neut # (Auto) (1.4-5.7) K/uL Lymph # (Auto) (0.6-2.4) K/uL [place] # (Auto) (0.0-0.8) K/uL Eos # (Auto) (0.0-0.7) K/uL Baso # (Auto) (0.0-0.1) K/uL Nucleated RBC % /100WBC Nucleated RBCs # K/uL Lactate (0.20-2.00) mmol/L Sodium (136-145) mmol/L Potassium (3.5-5.1) mmol/L Chloride (98-107) mmol/L Carbon Dioxide (21.0-32.0) mmol/L BUN (7.0-18.0) mg/dL Creatinine (0.6-1.0) mg/dL Est Cr Clr Drug Dosing Estimated GFR (MDRD) ml/min Glucose (74-106) mg/dL Calcium (8.5-10.1) mg/dL Total Bilirubin (0.2-1.0) mg/dL AST (15-37) IU/L ALT (14-63) IU/L Alkaline Phosphatase (46-116) U/L Troponin I (0.000-0.056) ng/mL Total Protein (6.4-8.2) g/dL Albumin (3.4-5.0) g/dL Globulin (2.6-4.0) g/dL Albumin/Globulin Ratio (0.9-1.6) Urine Color YELLOW Urine Appearance CLEAR Urine pH 7.0 (5.0-8.0) Ur Specific [place] 1.010 (1.001-1.035) Urine Protein NEGATIVE (NEGATIVE) mg/dL Urine Glucose (UA) NEGATIVE (NEGATIVE) mg/dL Urine Ketones NEGATIVE (NEGATIVE) mg/dL Urine Occult Blood MODERATE H (NEGATIVE) Urine Nitrite NEGATIVE (NEGATIVE) Urine Bilirubin NEGATIVE (NEGATIVE) Urine Urobilinogen 1.0 (<2.0) EU/dL Ur Leukocyte Esterase NEGATIVE (NEGATIVE) Urine RBC 3-5 (0-2/HPF) Urine WBC 0-2 (0-5/HPF) Ur Epithelial Cells OCCASIONAL (NONE-FEW) Urine Bacteria RARE (NEGATIVE) Meds: Medications Generic Name Dose Route Start Last Admin Trade Name Freq PRN Reason Stop Dose Admin Sodium Chloride 500 mls @ 999 mls/hr 01/30/19 06:45 01/30/19 07:22 Normal Saline IV 500 mls/hr STAT ZACKARY Infusion Sodium Chloride 10 ml 01/30/19 06:34 01/30/19 07:21 Saline Flush FLUSH 10 ml ASDIRECTED PRN Administration Keep Vein Open Sodium Chloride 2.5 ml 01/30/19 06:34 01/30/19 07:21 Saline Flush FLUSH 2.5 ml ASDIRECTED PRN Administration Keep Vein Open Departure - Departure Disposition: Home, Self-Care 01 Clinical Impression: Encounter for medical screening examination - Discharge Information Referrals: PCP,None [Primary Care Provider] - Forms: ED Department Discharge Additional Instructions: The following information is given to patients seen in the emergency department who are being discharged to home. This information is to outline your options for follow-up care. We provide all patients seen in our emergency department with a follow-up referral. The need for follow-up, as well as the timing and circumstances, are variable depending upon the specifics of your emergency department visit. If you don't have a primary care physician on staff, we will provide you with a referral. We always advise you to contact your personal physician following an emergency department visit to inform them of the circumstance of the visit and for follow-up with them and/or the need for any referrals to a consulting specialist. The emergency department will also refer you to a specialist when appropriate. This referral assures that you have the opportunity for follow-up care with a specialist. All of these measure are taken in an effort to provide you with optimal care, which includes your follow-up. Under all circumstances we always encourage you to contact your private physician who remains a resource for coordinating your care. When calling for follow-up care, please make the office aware that this follow-up is from your recent emergency room visit. If for any reason you are refused follow-up, please contact the [facility] Emergency Department at and asked to speak to the emergency department charge nurse. Take meds as directed, follow up with your primary care physician, return to ER if symptoms worsen or change. [facility] [address] [place] [id number] <Shanda Taylor - Last Filed: 01/30/19 08:27> ED HPI GENERAL MEDICAL PROBLEM - History of Present Illness INITIAL COMMENTS - FREE TEXT/NARRATIVE: Patient was signed out to me by the patient care provider check lab results. Patient will be going home with her who is her primary caregiver. She is to follow- up with her primary care as needed. Departure - Departure Time of Disposition: 08:22 Condition: Good - Discharge Information *PRESCRIPTION DRUG MONITORING PROGRAM REVIEWED*: No *COPY OF PRESCRIPTION DRUG MONITORING REPORT IN PATIENT MOHIT: No
[2019-01-30] MEDS ORDERED: Sodium Chloride 0.9% 500 ML IV SCH (06:45)
[2019-01-30 07:47] LABS: BLOOD UREA NITROGEN,BUN 15 mg/dL (7.0-18.0); CARBON DIOXIDE,CO2 28.7 mmol/L (21.0-32.0); CHLORIDE,CL 107 mmol/L (98-107); GLUCOSE RANDOM 87 mg/dL (74-106); POTASSIUM,K 4.6 mmol/L (3.5-5.1); SODIUM,NA 143 mmol/L (136-145)
--- NOTE | 2019-01-30 08:04 | CR ---
INDICATION: Pain. Short of breath. TECHNIQUE: Portable 1 view chest. FINDINGS: Heart and mediastinum are normal in size. Pulmonary vessels are normal. Lungs are clear. No pleural fluid. Postoperative change in the lower cervical spine. IMPRESSION: No acute chest disease. Dictated by Alistair Estrada MD @ Jan 30 2019 8:02AM Signed by Dr. Alistair Estrada @ Jan 30 2019 8:02AM
--- NOTE | 2019-01-30 08:14 | CT ---
Indication: pain, hx cerebral palsy Technique: CT of the head without contrast. Coronal and sagittal reformats. Bone and soft tissue locked rhythms. Comparison: 08/05/2018 Findings: No acute intracranial hemorrhage or extra-axial collection. No evidence of acute cortical infarction. No mass effect or midline shift. Normal cerebral volume. The ventricles are normal in size, shape and contour. There is normal conklin and white matter differentiation. The orbital contents are normal. Paranasal sinuses are well aerated. Mastoid air cells are clear. No calvarial fractures. No lytic or sclerotic osseous lesions within the calvarium or skull base. Scalp and other imaged soft tissue structures are normal. Impression: No acute intracranial abnormality. Please note that all CT scans at this facility use dose modulation, iterative reconstruction, and/or weight-based dosing when appropriate to reduce radiation dose to as low as reasonably achievable. Dictated by Miguel Rollins MD @ Jan 30 2019 8:09AM Signed by Dr. Miguel Rollins @ Jan 30 2019 8:13AM
[2019-01-30 08:48] VITALS: BP 131/78; PULSE 79
== END 2019-01-30 08:31 | disposition home or self-care (01) ==
LOC: MW.ED 06:15
DX: R53.1 Weakness (principal); G89.29 Other chronic pain; Z86.69 Personal history of other diseases of the nervous system and sense organs; I10 Essential (primary) hypertension; F32.9 Major depressive disorder, single episode, unspecified; Z99.3 Dependence on wheelchair; Z88.6 Allergy status to analgesic agent; Z88.8 Allergy status to other drugs, medicaments and biological substances; Z88.1 Allergy status to other antibiotic agents; Z88.5 Allergy status to narcotic agent; Z88.0 Allergy status to penicillin; Z88.2 Allergy status to sulfonamides; Z79.899 Other long term (current) drug therapy
CPT/HCPCS: 36415; 70450; 71045; 80053; 81001; 83605; 84484; 85025; 93005; 96360; 99284; J7040; 99283

== ENCOUNTER 2019-01-30 19:16 | Observation (INO) | payer MEDICAID ==
--- NOTE | 2019-01-30 21:25 | CT ---
INDICATION: Fall TECHNIQUE: CT cervical spine without contrast. COMPARISON: None FINDINGS: Vertebral alignment: Alignment is normal. Vertebrae: There are no fractures or suspicious bony lesions. Discs and facet joints: Multilevel degenerative changes. Anterior fixation are were C3-C4 and C6-C7. Extraspinal findings: Prevertebral soft tissues, visualized airway, and visualized lungs are unremarkable. IMPRESSION: No evidence of acute cervical spine trauma. Multilevel degenerative changes. Dictated by Miguel Goyal MD @ 01/30/2019 9:21:29 PM Please note that all CT scans at this facility use dose modulation, iterative reconstruction, and/or weight-based dosing when appropriate to reduce radiation dose to as low as reasonably achievable. Dictated by: Miguel Goyal MD @ 01/30/2019 21:23:24 (Electronically Signed)
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
--- NOTE | 2019-01-30 21:36 | CT ---
INDICATION: Fall TECHNIQUE: CT head without contrast. 8:37 p.m. COMPARISON: 6:51 a.m. FINDINGS: CSF spaces: Within normal limits for age. Brain parenchyma: The dale-white differentiation is normal. No sign of mass, hemorrhage, or midline shift. Stable linear focus of high attenuation right basal ganglia unchanged compared to 6:51 a.m.. Skull base and calvarium: The visualized paranasal sinuses and mastoid air cells demonstrate no acute or significant findings. The visualized orbits are grossly unremarkable. No skull fractures. Right frontal scalp hematoma IMPRESSION: Right frontal scalp hematoma with no associated fractures or evidence of acute intracranial trauma. Dictated by Miguel Goyal MD @ 01/30/2019 9:33:46 PM Please note that all CT scans at this facility use dose modulation, iterative reconstruction, and/or weight-based dosing when appropriate to reduce radiation dose to as low as reasonably achievable. Dictated by: Miguel Goyal MD @ 01/30/2019 21:33:55 (Electronically Signed)
--- NOTE | 2019-01-30 21:38 | CR ---
INDICATION: Fall TECHNIQUE: AP pelvis COMPARISON: 07/21/2017 FINDINGS: Bones: Three compression screws transfix a right femoral neck fracture. No acute fractures. Fixation hardware lower lumbar and upper sacral spine. Joint spaces: Unremarkable. Soft tissues: Unremarkable. IMPRESSION: No evidence of acute trauma. Three compression screws transfix a right femoral neck fracture. Dictated by Miguel Goyal MD @ 01/30/2019 9:36:30 PM Dictated by: Miguel Goyal MD @ 01/30/2019 21:36:52 (Electronically Signed)
--- NOTE | 2019-01-30 21:40 | CR ---
INDICATION: fall TECHNIQUE: Chest 1 view. COMPARISON: 01/30/19 FINDINGS: Cardiovascular and mediastinum: Heart size and vasculature are normal in caliber and appearance. Mediastinum is within normal limits. Lungs and pleural space: Lungs are clear. No sign of infiltrate or mass. No sign of pleural effusion. No pneumothorax. Bones and soft tissues: No significant findings. IMPRESSION: Unremarkable chest. Dictated by: Miguel Goyal MD @ 01/30/2019 21:39:34 (Electronically Signed)
[2019-01-30] MEDS ORDERED: Sodium Chloride 0.9% 1,000 ML IV SCH (23:45)
[2019-01-30] MEDS ORDERED: oxyCODONE 5 MG Tab PO PRN (23:56)
[2019-01-30] MEDS ORDERED: Acetaminophen 325 MG Tab PO PRN (23:56)
[2019-01-31] MEDS ORDERED: Temazepam 15 MG Cap PO PRN (00:05)
[2019-01-31] MEDS ORDERED: LORazepam 2 MG/ML SDV IVPUSH PRN (00:06)
[2019-01-31 06:30] LABS: CHLORIDE,CL 108 mmol/L (98-107); SODIUM,NA 144 mmol/L (136-145)
[2019-01-31] MEDS ORDERED: Baclofen 10 MG Tab PO SCH (08:30)
[2019-01-31] MEDS ORDERED: Gabapentin 800 MG Tab PO SCH (08:30)
[2019-01-31] MEDS ORDERED: Cyclobenzaprine 10 MG Tab PO PRN (08:34)
[2019-01-31] MEDS ORDERED: traMADol 50 MG Tab PO PRN (08:34)
[2019-01-31] MEDS ORDERED: Oxycodone Myristate [Xtampza Er] 36 MG PO SCH (08:45)
[2019-01-31 12:33] VITALS: BP 130/75
--- NOTE | 2019-01-31 13:12 | PCM.HP.2 ---
<Pedro Medina - Last Filed: 01/31/19 08:51> H&P History of Present Illness - General Date of Service: 01/31/19 Admit Problem/Dx: Admission Diagnosis/Problem Admission Diagnosis/Problem Altered mental status - History of Present Illness Initial Comments - Free Text/Narative: 53 y/o female with history of cerebral palsy who presented to the ER after she fell forward from her couch and hit her face. There was concern for some change in mental status so she was brought in to the ER. CT head showed a right scalp frontal hematoma. No fractures. Lab work was unremarkable. UA was negative. This morning, she was alert and oriented x4. She denies any confusion. Stated that she accidentally fell on the floor from her couch but was not complaining of any facial pain. She was requesting her morning medications for chronic muscle contractions. She stated that she wanted to go home. - Related Data Allergies/Adverse Reactions: Allergies Allergy/AdvReac Type Severity Reaction Status Date / Time amitriptyline Allergy Rash Verified 01/30/19 19:26 aspirin Allergy Nausea Verified 01/30/19 19:26 azithromycin Allergy Swelling Verified 01/30/19 19:26 [From Zithromax Z-Paul] ciprofloxacin Allergy Rash Verified 01/30/19 19:26 codeine Allergy Nausea Verified 01/30/19 19:26 erythromycin base Allergy Rash Verified 01/30/19 19:26 [Erythromycin Base] ibuprofen Allergy Nausea Verified 01/30/19 19:26 Penicillins Allergy Rash Verified 01/30/19 19:26 Sulfa (Sulfonamide Allergy Rash Verified 01/30/19 19:26 Antibiotics) tizanidine [Tizanidine] Allergy Rash Verified 01/30/19 19:26 Home Medications: Home Meds Escitalopram [Lexapro] 20 mg PO DAILY 08/03/18 [History] Meloxicam 15 mg PO DAILY 08/03/18 [History] Pantoprazole Sodium [Protonix] 20 mg PO DAILY 08/03/18 [History] hydrOXYzine HCl [hydrOXYzine] 25 mg PO QID PRN 08/03/18 [History] traMADol [Ultram] 100 mg PO Q6H PRN 08/03/18 [History] Gabapentin [Neurontin] 800 mg PO QID tablet 08/22/18 [Rx] Baclofen 10 mg PO TID 01/30/19 [History] Cyclobenzaprine [Flexeril] 5 - 10 mg PO TID PRN 01/31/19 [History] Loratadine/Pseudoephedrine [Claritin-D 24 Hour Tablet] 1 tab PO DAILY PRN [History] Metaxalone 400 mg PO QID PRN 01/31/19 [History] Oxycodone Myristate [Xtampza ER] 36 mg PO Q12H 01/31/19 [History] Past Medical History HEENT History: Reports: Hard of Hearing Cardiovascular History: Reports: Hypertension Respiratory History: Reports: Bronchitis, Recurrent Other Gastrointestinal History: opoiod induced constipation Genitourinary History: Reports: UTI, Recurrent 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: Musculoskeletal History: Reports: Back Pain, Chronic, Fracture, Osteoarthritis Other Musculoskeletal History: fx lower back Neurological History: Reports: Cerebral Palsy, Concussion, Migraines, Neuropathy , Peripheral Psychiatric History: Reports: Depression - Infectious Disease History Infectious Disease History: Reports: Chicken Pox, Hepatitis C, Measles - Past Surgical History HEENT Surgical History: Reports: None Cardiovascular Surgical History: Reports: None Respiratory Surgical History: Reports: None GI Surgical History: Reports: None Female Surgical History: Reports: Section Neurological Surgical History: Reports: None Musculoskeletal Surgical History: Reports: None, Arthroscopic Procedure, Hip Replacement, Other (See Below) Other Musculoskeletal Surgeries/Procedures:: quadrapeligic Social & Family History - Family History Family Medical History: Noncontributory - Tobacco Use Smoking Status *Q: Never Smoker Second Hand Smoke Exposure: No - Caffeine Use Caffeine Use: Reports: None - Recreational Drug Use Recreational Drug Use: No H&P Review of Systems - Review of Systems: Review Of Systems: ROS reveals no pertinent complaints other than HPI. Exam - Exam Exam: See Below - Vital Signs Vital Signs: Last Vital Signs Temp 36.2 C 01/31/19 04:00 Pulse 88 01/31/19 04:00 Resp 18 01/31/19 04:00 BP 125/77 01/31/19 04:00 Pulse Ox 97 01/31/19 04:00 Weight: 108.862 kg - Exam General: Alert, Oriented, Cooperative HEENT: Other (missing teeth) Lungs: Clear to Auscultation, Normal Respiratory Effort. No: Crackles, Wheezing Cardiovascular: Regular Rate, Regular Rhythm GI/Abdominal Exam: Normal Bowel Sounds, Soft, Non-Tender, No Distention Extremities: Other (left leg is contracted) Skin: Warm, Dry Neuro Extensive - Mental Status: Alert, Oriented x3 - Patient Data Lab Results Last 24 hrs: Laboratory Results - last 24 hr 01/30/19 01/31/19 01/31/19 Range/Units 20:16 05:39 05:39 WBC 5.39 7.88 (4.0-11.0) K/uL RBC 4.68 4.70 (4.30-5.90) M/uL Hgb 14.0 13.9 (12.0-16.0) g/dL Hct 41.9 42.9 (36.0-46.0) % MCV 89.5 91.3 (80.0-98.0) fL MCH 29.9 29.6 (27.0-32.0) pg MCHC 33.4 32.4 (31.0-37.0) g/dL RDW Std Deviation 43.1 43.5 (28.0-62.0) fl RDW Coeff of Ros 13 13 (11.0-15.0) % Plt Count 94 L 88 L (150-400) K/uL MPV 9.40 9.40 (7.40-12.00) fL Neut % (Auto) 58.9 68.0 (48.0-80.0) % Lymph % (Auto) 28.6 21.3 (16.0-40.0) % [place] % (Auto) 7.8 7.6 (0.0-15.0) % Eos % (Auto) 4.1 2.8 (0.0-7.0) % Baso % (Auto) 0.6 0.3 (0.0-1.5) % Neut # (Auto) 3.2 5.4 (1.4-5.7) K/uL Lymph # (Auto) 1.5 1.7 (0.6-2.4) K/uL [place] # (Auto) 0.4 0.6 (0.0-0.8) K/uL Eos # (Auto) 0.2 0.2 (0.0-0.7) K/uL Baso # (Auto) 0.0 0.0 (0.0-0.1) K/uL Nucleated RBC % 0.0 0.0 /100WBC Nucleated RBCs # 0 0 K/uL Sodium 144 (136-145) mmol/L Potassium 4.0 (3.5-5.1) mmol/L Chloride 108 H (98-107) mmol/L Carbon Dioxide 26.9 (21.0-32.0) mmol/L BUN 13 (7.0-18.0) mg/dL Creatinine 0.7 (0.6-1.0) mg/dL Est Cr Clr Drug Dosing TNP Estimated GFR (MDRD) > 60.0 ml/min Glucose 92 (74-106) mg/dL Calcium 9.2 (8.5-10.1) mg/dL Result Diagrams: 01/31/19 05:39 01/31/19 05:39 Problem List Initiated/Reviewed/Updated: Yes Orders Last 24hrs: Active Orders 24 hr Category Date Time Status Patient Status [ADT] Stat ADT 01/30/19 22:58 Active Ready for Discharge [RC] PER UNIT ROUTINE Care 01/31/19 08:39 Active Regular Diet [DIET] Diet 01/30/19 Dinner Active Acetaminophen [Tylenol] Med 01/30/19 23:56 Active 650 mg PO Q4H PRN Baclofen [Lioresal] Med 01/31/19 08:30 Active 10 mg PO TID Cyclobenzaprine [Flexeril] Med 01/31/19 08:34 Ordered 10 mg PO TID PRN Gabapentin [Neurontin] Med 01/31/19 08:30 Active 800 mg PO QID LORazepam [Ativan] Med 01/31/19 00:06 Active 1 mg IVPUSH Q8H PRN Oxycodone Myristate [Xtampza ER] Med 01/31/19 08:45 Ordered 36 mg PO Q12H Sodium Chloride 0.9% [Normal Saline] 1,000 ml Med 01/30/19 23:45 Active IV ASDIRECTED Temazepam [Restoril] Med 01/31/19 00:05 Active 15 mg PO BEDTIME PRN oxyCODONE Med 01/30/19 23:56 Active 5 mg PO Q6H PRN traMADol [Ultram] Med 01/31/19 08:34 Ordered 100 mg PO Q6H PRN Medication Orders Acetaminophen (Tylenol) 650 mg PO Q4H PRN PRN Reason: Pain Baclofen (Lioresal) 10 mg PO TID ZACKARY Cyclobenzaprine HCl (Flexeril) 10 mg PO TID PRN PRN Reason: MUSCLE SPASMS Gabapentin (Neurontin) 800 mg PO QID ZACKARY Sodium Chloride (Normal Saline) 1,000 mls @ 100 mls/hr IV ASDIRECTED ZACKARY Last Admin: 01/31/19 00:31 Dose: 100 mls/hr Lorazepam (Ativan) 1 mg IVPUSH Q8H PRN PRN Reason: Agitation Non-Formulary Medication (Oxycodone Myristate [Xtampza Er]) 36 mg PO Q12H ZACKARY Oxycodone HCl (Oxycodone) 5 mg PO Q6H PRN PRN Reason: mild pain Last Admin: 01/31/19 00:30 Dose: 5 mg Temazepam (Restoril) 15 mg PO BEDTIME PRN PRN Reason: Sleep Last Admin: 01/31/19 00:30 Dose: 15 mg Tramadol HCl (Ultram) 100 mg PO Q6H PRN PRN Reason: Pain Assessment/Plan Comment:: 53 y/o female with history of cerebral palsy who presented to the ER for concern for altered mental status s/p fall. Admitted for observation. Labs unremarkable and CT head showed frontal scalp hematoma. No fractures. Currently , alert and oriented x4. At baseline. She would like to go home. Patient was back to baseline alert and oriented x4. she was discharged home. <Scott Tavera - Last Filed: 01/31/19 13:11> H&P History of Present Illness - General Admit Problem/Dx: Admission Diagnosis/Problem Admission Diagnosis/Problem Altered mental status I have seen and examined the patient independently of the medical chief technician, Dr. Minerva MD. I have reviewed and approve of the plan of care as outlined by the resident. I have discussed the case with the resident. Please see orders. Exam - Vital Signs Vital Signs: Last Vital Signs Temp 36.8 C 01/31/19 12:00 Pulse 89 01/31/19 12:00 Resp 18 01/31/19 12:00 BP 130/75 01/31/19 12:00 Pulse Ox 96 01/31/19 12:00 - Patient Data Lab Results Last 24 hrs: Laboratory Results - last 24 hr 01/30/19 01/31/19 01/31/19 Range/Units 20:16 05:39 05:39 WBC 5.39 7.88 (4.0-11.0) K/uL RBC 4.68 4.70 (4.30-5.90) M/uL Hgb 14.0 13.9 (12.0-16.0) g/dL Hct 41.9 42.9 (36.0-46.0) % MCV 89.5 91.3 (80.0-98.0) fL MCH 29.9 29.6 (27.0-32.0) pg MCHC 33.4 32.4 (31.0-37.0) g/dL RDW Std Deviation 43.1 43.5 (28.0-62.0) fl RDW Coeff of Ros 13 13 (11.0-15.0) % Plt Count 94 L 88 L (150-400) K/uL MPV 9.40 9.40 (7.40-12.00) fL Neut % (Auto) 58.9 68.0 (48.0-80.0) % Lymph % (Auto) 28.6 21.3 (16.0-40.0) % [place] % (Auto) 7.8 7.6 (0.0-15.0) % Eos % (Auto) 4.1 2.8 (0.0-7.0) % Baso % (Auto) 0.6 0.3 (0.0-1.5) % Neut # (Auto) 3.2 5.4 (1.4-5.7) K/uL Lymph # (Auto) 1.5 1.7 (0.6-2.4) K/uL [place] # (Auto) 0.4 0.6 (0.0-0.8) K/uL Eos # (Auto) 0.2 0.2 (0.0-0.7) K/uL Baso # (Auto) 0.0 0.0 (0.0-0.1) K/uL Nucleated RBC % 0.0 0.0 /100WBC Nucleated RBCs # 0 0 K/uL Sodium 144 (136-145) mmol/L Potassium 4.0 (3.5-5.1) mmol/L Chloride 108 H (98-107) mmol/L Carbon Dioxide 26.9 (21.0-32.0) mmol/L BUN 13 (7.0-18.0) mg/dL Creatinine 0.7 (0.6-1.0) mg/dL Est Cr Clr Drug Dosing TNP Estimated GFR (MDRD) > 60.0 ml/min Glucose 92 (74-106) mg/dL Calcium 9.2 (8.5-10.1) mg/dL Result Diagrams: 01/31/19 05:39 01/31/19 05:39 Orders Last 24hrs: Active Orders 24 hr Category Date Time Status Patient Status [ADT] Stat ADT 01/30/19 22:58 Active Ready for Discharge [RC] PER UNIT ROUTINE Care 01/31/19 08:39 Active
== END 2019-01-31 11:50 | disposition home or self-care (01) ==
LOC: MW.ED 19:16 → MW.MS 22:58
PROVIDERS: ADMIT Internal Medicine; ATTEND Internal Medicine
DX: R41.82 Altered mental status, unspecified (principal); S00.03XA Contusion of scalp, initial encounter; G89.29 Other chronic pain; M54.9 Dorsalgia, unspecified; M19.90 Unspecified osteoarthritis, unspecified site; G80.9 Cerebral palsy, unspecified; F32.9 Major depressive disorder, single episode, unspecified; W08.XXXA Fall from other furniture, initial encounter; Z88.8 Allergy status to other drugs, medicaments and biological substances; Z88.6 Allergy status to analgesic agent; Z88.1 Allergy status to other antibiotic agents; Z88.5 Allergy status to narcotic agent; Z88.0 Allergy status to penicillin; Z88.2 Allergy status to sulfonamides; Z79.899 Other long term (current) drug therapy; Z79.891 Long term (current) use of opiate analgesic
CPT/HCPCS: 36415; 70450; 71045; 72125; 72170; 80048; 85025; 99285; A9270; G0378; J7040

== ENCOUNTER 2019-02-10 22:29 | Emergency (ER) | payer SELFPAY ==
--- NOTE | 2019-02-10 23:42 | EDM.PDOC ---
ED HPI GENERAL MEDICAL PROBLEM - General Chief Complaint: Genitourinary Problem Stated Complaint: POSSIBLE UTI Time Seen by Provider: 02/10/19 22:53 Source of Information: Reports: Patient, Family History Limitations: Reports: No Limitations - History of Present Illness INITIAL COMMENTS - FREE TEXT/NARRATIVE: HISTORY AND PHYSICAL: History of present illness: Patient is a 54-year-old female who presents to the ED today with concern of urinary frequency and burning with urination 3 days. Patient is primarily wheelchair bound and has some contractures and is taking care of by her . Patient does wear a depends brief. Patient states that she has had some slight burning with urination and urination frequency. states that he has noticed her urine seems to be a little bit darker in color in the previous and started having a foul order to it. Patient states that patient has had frequent urinary tract infections in the past the most recent being 6 months ago. states that due to her allergies with antibiotics they have had issues in the past trying to properly treat urinary tract infections. Patient states other than the urinary frequency and slight burning with urination she feels per her normal self and at her baseline. and patient deny any other symptoms or concerns at this time. Patient denies fever, chills, chest pain, shortness of breath, or cough. Denies headache, neck stiff ness, change in vision, syncope, or near syncope. Denies nausea, vomiting, abdominal pain, diarrhea, constipation. Has not noted any blood in stool. Patient has been eating and drinking appropriately. Review of systems: As per history of present illness and below otherwise all systems reviewed and negative. Past medical history: As per history of present illness and as reviewed below otherwise noncontributory. Surgical history: As per history of present illness and as reviewed below otherwise noncontributory. Social history: See social history for further information Family history: As per history of present illness and as reviewed below otherwise noncontributory. Physical exam: Physical exam is limited due to patient's current medical condition and contractures with immobility to wheelchair. General: Patient is alert, oriented, and in no acute distress. Patient sitting comfortably in wheelchair. HEENT: Atraumatic, normocephalic, pupils equal and reactive bilaterally, negative for conjunctival pallor or scleral icterus, mucous membranes moist, TMs normal bilaterally, throat clear, neck supple, nontender, trachea midline. No drooling or trismus noted. No meningeal signs. No hot potato voice noted. Lungs: Clear to auscultation, breath sounds equal bilaterally, chest nontender. Heart: S1S2, regular rate and rhythm without overt murmur Abdomen: Soft, nondistended, nontender. Negative for masses or hepatosplenomegaly. Negative for costovertebral tenderness. Pelvis: Stable nontender. Genitourinary: Deferred. Rectal: Deferred. Skin: Intact, warm, dry. No lesions or rashes noted. Extremities: Contractured upper extremities and lower extremities per her baseline according to . Otherwise, Atraumatic, negative for cords or calf pain. Neurovascular unremarkable. Neuro: Awake, alert, oriented. Neuro status at baseline according the . Notes: Dr. Harrell verbally involved in patient care. We do not have Macrobid available in the instrument so we will give first dose tonight in the ED. Discussed the importance for follow-up with a primary care provider. Voices understanding and is agreeable to plan of care. Denies any further questions or concerns at this time. Diagnostics: UA, urine culture Therapeutics: Macrobid Prescription: Macrobid Impression: Urinary tract infection Plan: 1. Take medication as prescribed. You can alternate ibuprofen and Tylenol as checked her for pain and discomfort. 2. Follow-up with a primary care provider as discussed. Return to the ED as needed and as discussed. Definitive disposition and diagnosis as appropriate pending reevaluation and review of above. - Related Data Allergies Allergy/AdvReac Type Severity Reaction Status Date / Time amitriptyline Allergy Rash Verified 02/10/19 22:41 aspirin Allergy Nausea Verified 02/10/19 22:41 azithromycin Allergy Swelling Verified 02/10/19 22:41 [From Zithromax Z-Paul] ciprofloxacin Allergy Rash Verified 02/10/19 22:41 codeine Allergy Nausea Verified 02/10/19 22:41 erythromycin base Allergy Rash Verified 02/10/19 22:41 [Erythromycin Base] ibuprofen Allergy Nausea Verified 02/10/19 22:41 Penicillins Allergy Rash Verified 02/10/19 22:41 Sulfa (Sulfonamide Allergy Rash Verified 02/10/19 22:41 Antibiotics) tizanidine [Tizanidine] Allergy Rash Verified 02/10/19 22:41 Home Meds: Home Meds Escitalopram [Lexapro] 20 mg PO DAILY 08/03/18 [History] Meloxicam 15 mg PO DAILY 08/03/18 [History] Pantoprazole Sodium [Protonix] 20 mg PO DAILY 08/03/18 [History] hydrOXYzine HCl [hydrOXYzine] 25 mg PO QID PRN 08/03/18 [History] traMADol [Ultram] 100 mg PO Q6H PRN 08/03/18 [History] Gabapentin [Neurontin] 800 mg PO QID tablet 08/22/18 [Rx] Baclofen 10 mg PO TID 01/30/19 [History] Cyclobenzaprine [Flexeril] 5 - 10 mg PO TID PRN 01/31/19 [History] Loratadine/Pseudoephedrine [Claritin-D 24 Hour Tablet] 1 tab PO DAILY PRN [History] Metaxalone 400 mg PO QID PRN 01/31/19 [History] Oxycodone Myristate [Xtampza ER] 36 mg PO Q12H 01/31/19 [History] Past Medical History HEENT History: Reports: Hard of Hearing Cardiovascular History: Reports: Hypertension Respiratory History: Reports: Bronchitis, Recurrent Other Gastrointestinal History: opoiod induced constipation Genitourinary History: Reports: UTI, Recurrent [employer]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: Musculoskeletal History: Reports: Back Pain, Chronic, Fracture, Osteoarthritis Other Musculoskeletal History: fx lower back Neurological History: Reports: Cerebral Palsy, Concussion, Migraines, Neuropathy , Peripheral Psychiatric History: Reports: Depression - Infectious Disease History Infectious Disease History: Reports: Chicken Pox, Hepatitis C, Measles - Past Surgical History HEENT Surgical History: Reports: None Cardiovascular Surgical History: Reports: None Respiratory Surgical History: Reports: None GI Surgical History: Reports: None Female Surgical History: Reports: Section Neurological Surgical History: Reports: None Musculoskeletal Surgical History: Reports: None, Arthroscopic Procedure, Hip Replacement, Other (See Below) Other Musculoskeletal Surgeries/Procedures:: quadrapeligic, c5 Social & Family History - Family History Family Medical History: Noncontributory - Tobacco Use Smoking Status *Q: Current Every Day Smoker Years of Tobacco use: 40 Packs/Tins Daily: 0.5 - Caffeine Use Caffeine Use: Reports: None - Recreational Drug Use Recreational Drug Use: No ED ROS GENERAL - Review of Systems Review Of Systems: ROS reveals no pertinent complaints other than HPI. ED EXAM, GENERAL - Physical Exam Exam: See Below (see dictation) Course - Vital Signs Last Recorded V/S: Last Vital Signs Temp 36.4 C 02/10/19 22:39 Pulse 101 H 02/10/19 22:39 Resp 16 02/10/19 22:39 BP 114/77 02/10/19 22:39 Pulse Ox 94 L 02/10/19 22:39 - Orders/Labs/Meds Orders: Active Orders 24 hr Category Date Time Status CULTURE URINE [RM] Stat Lab 02/10/19 23:17 Received Labs: Laboratory Tests 02/10/19 Range/Units 23:17 Urine Color YELLOW Urine Appearance SLT CLOUDY Urine pH 6.0 (5.0-8.0) Ur Specific Stitzer 1.015 (1.001-1.035) Urine Protein NEGATIVE (NEGATIVE) mg/dL Urine Glucose (UA) NEGATIVE (NEGATIVE) mg/dL Urine Ketones NEGATIVE (NEGATIVE) mg/dL Urine Occult Blood SMALL H (NEGATIVE) Urine Nitrite POSITIVE H (NEGATIVE) Urine Bilirubin NEGATIVE (NEGATIVE) Urine Urobilinogen 2.0 H (<2.0) EU/dL Ur Leukocyte Esterase MODERATE H (NEGATIVE) Urine RBC 3-5 (0-2/HPF) Urine WBC 75-100 (0-5/HPF) Ur Epithelial Cells FEW (NONE-FEW) Urine Bacteria 4+ H (NEGATIVE) Meds: Medications Discontinued Medications Generic Name Dose Route Start Last Admin Trade Name Freq PRN Reason Stop Dose Admin Nitrofurantoin Macrocrystals 100 mg 02/11/19 00:04 Macrobid PO 02/11/19 00:05 ONETIME ONE Departure - Departure Time of Disposition: 00:06 Disposition: Home, Self-Care 01 Clinical Impression: UTI, Urinary tract infectious disease - Discharge Information Referrals: PCP,None [Primary Care Provider] - Forms: ED Department Discharge Additional Instructions: The following information is given to patients seen in the emergency department who are being discharged to home. This information is to outline your options for follow-up care. We provide all patients seen in our emergency department with a follow-up referral. The need for follow-up, as well as the timing and circumstances, are variable depending upon the specifics of your emergency department visit. If you don't have a primary care physician on staff, we will provide you with a referral. We always advise you to contact your personal physician following an emergency department visit to inform them of the circumstance of the visit and for follow-up with them and/or the need for any referrals to a consulting specialist. The emergency department will also refer you to a specialist when appropriate. This referral assures that you have the opportunity for follow-up care with a specialist. All of these measure are taken in an effort to provide you with optimal care, which includes your follow-up. Under all circumstances we always encourage you to contact your private physician who remains a resource for coordinating your care. When calling for follow-up care, please make the office aware that this follow-up is from your recent emergency room visit. If for any reason you are refused follow-up, please contact the [facility] Emergency Department at and asked to speak to the emergency department charge nurse. [facility] [address] [place] [id number] [place] [address] 1. Take medication as prescribed. You can alternate ibuprofen and Tylenol as checked her for pain and discomfort. 2. Follow-up with a primary care provider as discussed. Return to the ED as needed and as discussed. - My Orders Last 24 Hours: My Active Orders 02/10/19 23:17 CULTURE URINE [RM] Stat - Assessment/Plan Last 24 Hours: My Active Orders 02/10/19 23:17 CULTURE URINE [RM] Stat
[2019-02-11] MEDS ORDERED: Nitrofurantoin Monohydrate/Macrocrystalline 100 MG Cap PO ONE (00:04)
[2019-02-11 00:31] VITALS: BP 107/72
== END 2019-02-11 00:37 | disposition home or self-care (01) ==
LOC: MW.ED 22:29
DX: N39.0 Urinary tract infection, site not specified (principal); I10 Essential (primary) hypertension; F32.9 Major depressive disorder, single episode, unspecified; F17.210 Nicotine dependence, cigarettes, uncomplicated; Z88.6 Allergy status to analgesic agent; Z88.5 Allergy status to narcotic agent; Z88.0 Allergy status to penicillin; Z88.2 Allergy status to sulfonamides; Z88.1 Allergy status to other antibiotic agents; Z88.8 Allergy status to other drugs, medicaments and biological substances; Z79.899 Other long term (current) drug therapy
CPT/HCPCS: 81001; 87086; 87088; 87186; 99283; A9270

== ENCOUNTER 2019-02-11 04:24 | Emergency (ER) | payer SELFPAY ==
[2019-02-11] MEDS ORDERED: Sodium Chloride 0.9% 10 ML Syringe FLUSH PRN (05:03)
[2019-02-11] MEDS ORDERED: Sodium Chloride 0.9% 2.5 ML Syringe FLUSH PRN (05:03)
[2019-02-11 05:30] LABS: CHLORIDE,CL 107 mmol/L (98-107); SODIUM,NA 145 mmol/L (136-145)
--- NOTE | 2019-02-11 05:32 | EDM.PDOC ---
ED HPI GENERAL MEDICAL PROBLEM - General Chief Complaint: Neurological Problem Stated Complaint: UTI Time Seen by Provider: 02/11/19 05:32 - History of Present Illness INITIAL COMMENTS - FREE TEXT/NARRATIVE: HISTORY AND PHYSICAL: History of present illness: Patient's a 54-year-old female was seen earlier for urinary tract infection and returns now for medical screening states she's confused on a regular patient's awake alert oriented 3 afebrile with stable vital signs and no complaints Review of systems: As per history of present illness and below otherwise all systems reviewed and negative. Past medical history: As per history of present illness and as reviewed below otherwise noncontributory. Surgical history: As per history of present illness and as reviewed below otherwise noncontributory. Social history: No reported history of drug or alcohol abuse. Family history: As per history of present illness and as reviewed below otherwise noncontributory. Physical exam: HEENT: Atraumatic, normocephalic, pupils reactive, negative for conjunctival pallor or scleral icterus, mucous membranes moist, throat clear, neck supple, nontender, trachea midline. Lungs: Clear to auscultation, breath sounds equal bilaterally, chest nontender. Heart: S1S2, regular, negative for clicks, rubs, or JVD. Abdomen: Soft, nondistended, nontender. Negative for masses or hepatosplenomegaly. Negative for costovertebral tenderness. Pelvis: Stable nontender. Genitourinary: Deferred. Rectal: Deferred. Extremities: Atraumatic, negative for cords or calf pain. Neurovascular unremarkable. Neuro: Awake, alert, oriented. Follows commands and moves all extremities grossly nonfocal neurological exam Diagnostics: CBC CMP CT brain chest x-ray EKG blood culture 2 lactic acid Therapeutics: Saline 1 L bolus Impression: #1 UTI #2 medical screening exam Definitive disposition and diagnosis as appropriate pending reevaluation and review of above. Generalized Pain Score (Numeric/FACES): 10 - Related Data Allergies Allergy/AdvReac Type Severity Reaction Status Date / Time amitriptyline Allergy Rash Verified 02/11/19 04:34 aspirin Allergy Nausea Verified 02/11/19 04:34 azithromycin Allergy Swelling Verified 02/11/19 04:34 [From Zithromax Z-Paul] ciprofloxacin Allergy Rash Verified 02/11/19 04:34 codeine Allergy Nausea Verified 02/11/19 04:34 erythromycin base Allergy Rash Verified 02/11/19 04:34 [Erythromycin Base] ibuprofen Allergy Nausea Verified 02/11/19 04:34 Penicillins Allergy Rash Verified 02/11/19 04:34 Sulfa (Sulfonamide Allergy Rash Verified 02/11/19 04:34 Antibiotics) tizanidine [Tizanidine] Allergy Rash Verified 02/11/19 04:34 Home Meds: Home Meds Escitalopram [Lexapro] 20 mg PO DAILY 08/03/18 [History] Meloxicam 15 mg PO DAILY 08/03/18 [History] Pantoprazole Sodium [Protonix] 20 mg PO DAILY 08/03/18 [History] hydrOXYzine HCl [hydrOXYzine] 25 mg PO QID PRN 08/03/18 [History] traMADol [Ultram] 100 mg PO Q6H PRN 08/03/18 [History] Gabapentin [Neurontin] 800 mg PO QID tablet 08/22/18 [Rx] Baclofen 10 mg PO TID 01/30/19 [History] Cyclobenzaprine [Flexeril] 5 - 10 mg PO TID PRN 01/31/19 [History] Loratadine/Pseudoephedrine [Claritin-D 24 Hour Tablet] 1 tab PO DAILY PRN [History] Metaxalone 400 mg PO QID PRN 01/31/19 [History] Oxycodone Myristate [Xtampza ER] 36 mg PO Q12H 01/31/19 [History] Past Medical History HEENT History: Reports: Hard of Hearing Cardiovascular History: Reports: Hypertension Respiratory History: Reports: Bronchitis, Recurrent Other Gastrointestinal History: opoiod induced constipation Genitourinary History: Reports: UTI, Recurrent 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: Musculoskeletal History: Reports: Back Pain, Chronic, Fracture, Osteoarthritis Other Musculoskeletal History: fx lower back Neurological History: Reports: Cerebral Palsy, Concussion, Migraines, Neuropathy , Peripheral Psychiatric History: Reports: Depression - Infectious Disease History Infectious Disease History: Reports: Chicken Pox, Hepatitis C, Measles - Past Surgical History HEENT Surgical History: Reports: None Cardiovascular Surgical History: Reports: None Respiratory Surgical History: Reports: None GI Surgical History: Reports: None Female Surgical History: Reports: Section Neurological Surgical History: Reports: None Musculoskeletal Surgical History: Reports: None, Arthroscopic Procedure, Hip Replacement, Other (See Below) Other Musculoskeletal Surgeries/Procedures:: quadrapeligic, c5 Social & Family History - Family History Family Medical History: Noncontributory - Caffeine Use Caffeine Use: Reports: None ED ROS GENERAL - Review of Systems Review Of Systems: ROS reveals no pertinent complaints other than HPI. ED EXAM, GENERAL - Physical Exam Exam: See Below (See dictation) Course - Vital Signs Last Recorded V/S: Last Vital Signs Temp 36.6 C 02/11/19 04:30 Pulse 113 H 02/11/19 04:30 Resp 20 02/11/19 04:30 BP 113/79 02/11/19 04:30 Pulse Ox 95 02/11/19 04:30 - Orders/Labs/Meds Orders: Active Orders 24 hr Category Date Time Status EKG Documentation Completion [RC] URGENT Care 02/11/19 05:03 Active Head wo Cont [CT] Stat Exams 02/11/19 05:03 Taken AMMONIA VENOUS [CHEM] Stat Lab 02/11/19 05:03 Ordered COMPREHENSIVE METABOLIC PN,CMP [CHEM] Stat Lab 02/11/19 04:49 Received CULTURE BLOOD [BC] Stat Lab 02/11/19 05:05 Ordered CULTURE BLOOD [BC] Stat Lab 02/11/19 05:05 Ordered Sodium Chloride 0.9% [Saline Flush] Med 02/11/19 05:03 Active 10 ml FLUSH ASDIRECTED PRN Sodium Chloride 0.9% [Saline Flush] Med 02/11/19 05:03 Active 2.5 ml FLUSH ASDIRECTED PRN Blood Culture x2 Reflex Set [OM.PC] Stat Oth 02/11/19 05:03 Ordered Saline Lock Insert [OM.PC] Stat Oth 02/11/19 05:03 Ordered Medication Orders Sodium Chloride (Saline Flush) 10 ml FLUSH ASDIRECTED PRN PRN Reason: Keep Vein Open Sodium Chloride (Saline Flush) 2.5 ml FLUSH ASDIRECTED PRN PRN Reason: Keep Vein Open Labs: Laboratory Tests 02/11/19 02/11/19 Range/Units 04:49 04:49 WBC 7.90 (4.0-11.0) K/uL RBC 4.67 (4.30-5.90) M/uL Hgb 14.2 (12.0-16.0) g/dL Hct 42.5 (36.0-46.0) % MCV 91.0 (80.0-98.0) fL MCH 30.4 (27.0-32.0) pg MCHC 33.4 (31.0-37.0) g/dL RDW Std Deviation 43.5 (28.0-62.0) fl RDW Coeff of Ros 13 (11.0-15.0) % Plt Count 122 L (150-400) K/uL MPV 9.40 (7.40-12.00) fL Neut % (Auto) 64.4 (48.0-80.0) % Lymph % (Auto) 25.3 (16.0-40.0) % [place]ath % (Auto) 6.5 (0.0-15.0) % Eos % (Auto) 3.4 (0.0-7.0) % Baso % (Auto) 0.4 (0.0-1.5) % Neut # (Auto) 5.1 (1.4-5.7) K/uL Lymph # (Auto) 2.0 (0.6-2.4) K/uL Erath # (Auto) 0.5 (0.0-0.8) K/uL Eos # (Auto) 0.3 (0.0-0.7) K/uL Baso # (Auto) 0.0 (0.0-0.1) K/uL Nucleated RBC % 0.0 /100WBC Nucleated RBCs # 0 K/uL Lactate 1.3 (0.20-2.00) mmol/L Meds: Medications Generic Name Dose Route Start Last Admin Trade Name Freq PRN Reason Stop Dose Admin Sodium Chloride 10 ml 02/11/19 05:03 Saline Flush FLUSH ASDIRECTED PRN Keep Vein Open Sodium Chloride 2.5 ml 02/11/19 05:03 Saline Flush FLUSH ASDIRECTED PRN Keep Vein Open Departure - Departure Time of Disposition: 05:31 Disposition: Home, Self-Care 01 Condition: Good Clinical Impression: UTI (urinary tract infection), Encounter for medical screening examination - Discharge Information Referrals: PCP,None [Primary Care Provider] - Additional Instructions: The following information is given to patients seen in the emergency department who are being discharged to home. This information is to outline your options for follow-up care. We provide all patients seen in our emergency department with a follow-up referral. The need for follow-up, as well as the timing and circumstances, are variable depending upon the specifics of your emergency department visit. If you don't have a primary care physician on staff, we will provide you with a referral. We always advise you to contact your personal physician following an emergency department visit to inform them of the circumstance of the visit and for follow-up with them and/or the need for any referrals to a consulting specialist. The emergency department will also refer you to a specialist when appropriate. This referral assures that you have the opportunity for followup care with a specialist. All of these measure are taken in an effort to provide you with optimal care, which includes your followup. Under all circumstances we always encourage you to contact your private physician who remains a resource for coordinating your care. When calling for followup care, please make the office aware that this follow-up is from your recent emergency room visit. If for any reason you are refused follow-up, please contact the [facility] emergency department at and asked to speak to the emergency department charge nurse. Macrodantin as prescribed push fluids follow-up primary medical doctor as needed as discussed and return as needed as discussed - My Orders Last 24 Hours: My Active Orders 02/11/19 04:49 COMPREHENSIVE METABOLIC PN,CMP [CHEM] Stat 02/11/19 05:03 EKG Documentation Completion [RC] URGENT Head wo Cont [CT] Stat AMMONIA VENOUS [CHEM] Stat Sodium Chloride 0.9% [Saline Flush] 10 ml FLUSH ASDIRECTED PRN Sodium Chloride 0.9% [Saline Flush] 2.5 ml FLUSH ASDIRECTED PRN Blood Culture x2 Reflex Set [OM.PC] Stat Saline Lock Insert [OM.PC] Stat 02/11/19 05:05 CULTURE BLOOD [BC] Stat CULTURE BLOOD [BC] Stat - Assessment/Plan Last 24 Hours: My Active Orders 02/11/19 04:49 COMPREHENSIVE METABOLIC PN,CMP [CHEM] Stat 02/11/19 05:03 EKG Documentation Completion [RC] URGENT Head wo Cont [CT] Stat AMMONIA VENOUS [CHEM] Stat Sodium Chloride 0.9% [Saline Flush] 10 ml FLUSH ASDIRECTED PRN Sodium Chloride 0.9% [Saline Flush] 2.5 ml FLUSH ASDIRECTED PRN Blood Culture x2 Reflex Set [OM.PC] Stat Saline Lock Insert [OM.PC] Stat 02/11/19 05:05 CULTURE BLOOD [BC] Stat CULTURE BLOOD [BC] Stat
[2019-02-11] MEDS ORDERED: Nitrofurantoin Monohydrate/Macrocrystalline 100 MG Cap PO ONE (05:40)
[2019-02-11] MEDS ORDERED: Sodium Chloride 0.9% 1,000 ML IV SCH (05:45)
[2019-02-11 07:00] VITALS: BP 141/84
--- NOTE | 2019-02-11 07:09 | CT ---
INDICATION: Confusion. Mental status changes. COMPARISON: none TECHNIQUE: A CT volumetric acquisition was performed of the brain without IV contrast. FINDINGS: There is no evidence of a subdural or epidural hematoma. There is no evidence of subarachnoid hemorrhage or intraparenchymal bleeding. The CT images reveal a normal appearance of the cerebral ventricles and basal cisterns. There is no evidence of localized tissue infarction or mass effect. There is normal dale white matter differentiation. The mastoid air cells and middle ear cavities are clear. The calvarium appears intact. There is normal aeration of the visualized paranasal sinuses. IMPRESSION: Negative head CT. Note: I discussed exam findings with Dr. Harrell in the emergency department at the completion of the study on 02/11/2019 at 7:04 a.m. Please note that all CT scans at this facility use dose modulation, iterative reconstruction, and/or weight-based dosing when appropriate to reduce radiation dose to as low as reasonably achievable. Dictated by Iván Sanchez MD @ Feb 11 2019 6:59AM Signed by Dr. Iván Sanchez @ Feb 11 2019 7:07AM
== END 2019-02-11 06:58 | disposition home or self-care (01) ==
LOC: MW.ED 04:24
DX: N39.0 Urinary tract infection, site not specified (principal); I10 Essential (primary) hypertension; F32.9 Major depressive disorder, single episode, unspecified; Z88.6 Allergy status to analgesic agent; Z88.1 Allergy status to other antibiotic agents; Z88.5 Allergy status to narcotic agent; Z88.0 Allergy status to penicillin; Z88.2 Allergy status to sulfonamides; Z88.8 Allergy status to other drugs, medicaments and biological substances; Z79.899 Other long term (current) drug therapy
CPT/HCPCS: 36415; 70450; 80053; 83605; 85025; 87040; 93005; 96360; 99284; A9270; J7040

== ENCOUNTER 2019-08-06 10:39 | Inpatient (IN) | payer MEDICAID ==
--- NOTE | 2019-08-06 11:33 | CT ---
Head CT Technique: Multiple axial sections through the brain were obtained. Intravenous contrast was not utilized. Comparison: Prior head CT study of 02/11/19. Findings: Ventricles along with basal cisterns and sulci over the convexities are within normal limits for the patient's age. No abnormal parenchymal densities are seen. No evidence of intracranial hemorrhage. No midline shift or mass effect is seen. Bone window settings were reviewed. No acute calvarial abnormality is appreciated. There is mucosal thickening seen within the inferior left mastoid sinus. No acute paranasal sinus findings are seen. No acute calvarial abnormality is appreciated. Impression: 1. Portion of the left mastoid sinus is opacified. Please rule out any symptoms of mastoiditis. 2. Nothing acute is otherwise seen on noncontrast head CT exam. Diagnostic code #3 This report was dictated in [place] Standard Time
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
[2019-08-06 12:41] LABS: BLOOD UREA NITROGEN,BUN 10 mg/dL (7.0-18.0); CARBON DIOXIDE,CO2 26.9 mmol/L (21.0-32.0); CHLORIDE,CL 108 mmol/L (98-107); GLUCOSE RANDOM 81 mg/dL (74-106); LIPASE 70 U/L (73-393); POTASSIUM,K 3.9 mmol/L (3.5-5.1); SODIUM,NA 145 mmol/L (136-145)
[2019-08-06] MEDS ORDERED: Cefepime 2 GM in Premix Bag 1 BAG IV ONE (12:54)
[2019-08-06] MEDS ORDERED: Vancomycin 500 MG SDV IV SCH (13:15)
--- NOTE | 2019-08-06 13:18 | CT ---
CT abdomen and pelvis Technique: Multiple axial sections were obtained from above the dome of the diaphragm inferiorly through the pubic symphysis. Intravenous and oral contrast not utilized. In addition, patient's arms are along the side of the abdomen. These findings all result in limited interpretation. Comparison: No prior abdominal imaging. Findings: Within above limitation, lungs appear without definite acute finding. Liver contains no discrete abnormality. Gallbladder contains no calcified gallstones. Spleen shows no discrete abnormality. Adrenal glands show no nodule. Pancreas is atrophied but shows no discrete abnormality. Kidneys show no hydronephrosis or abnormal calcifications. Aorta shows atherosclerotic change without aneurysm. No retroperitoneal adenopathy or mesenteric abnormalities are seen. No pelvic mass or adenopathy is seen. Increased stool is noted throughout the colon. No small bowel dilatation is appreciated. No free fluid or inflammatory change is identified. Appendix not visualized with certainty. Artifact is noted from lower lumbar spine surgery. Bony structures are osteopenic. Degenerative change and scoliosis is noted within other portions of the spine. Impression: 1. Limited study as described above. 2. Other findings as noted above. 3. No definite acute abnormality is appreciated. Diagnostic code #2 This report was dictated in [place] Standard Time
--- NOTE | 2019-08-06 13:18 | CR ---
Chest: Portable semi-upright view of the chest was obtained. Comparison: Prior chest x-ray of 01/30/19. Heart size is normal. Tortuous thoracic aorta is seen. Lung markings are slightly increased which appear chronic. No acute parenchymal change is seen. Previous cervical spine surgery is noted. Impression: 1. Increased central lung markings which appear to be chronic. 2. Nothing acute is appreciated. Diagnostic code #2 This report was dictated in [place] Standard Time
[2019-08-06] MEDS ORDERED: Acetaminophen 650 MG Supp RECTAL PRN (14:12)
[2019-08-06] MEDS ORDERED: Ondansetron 4 MG/2 ML SDV IVPUSH PRN (14:12)
[2019-08-06] MEDS ORDERED: Sodium Chloride 0.45% 1,000 ML IV SCH (14:15)
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
[2019-08-06] MEDS: Heparin Sodium 5,000 Units/ML Vial SUBCUT SCH ×2 (14:53→22:15)
[2019-08-06] MEDS ORDERED: Bisacodyl 10 MG Supp RECTAL PRN (15:12)
[2019-08-06] MEDS: Ketorolac 15 MG/ML SDV IVPUSH PRN ×2 (20:04→20:09)
[2019-08-06] MEDS: Morphine 2 MG/ML Syringe IVPUSH PRN (22:05)
[2019-08-06] MEDS: LORazepam 2 MG/ML SDV IVPUSH PRN (22:07)
[2019-08-07] MEDS: Cefepime 2 GM in Premix Bag 1 BAG IV SCH ×2 (01:52→13:11)
[2019-08-07] MEDS ORDERED: Sodium Chloride 0.45% 1,000 ML IV SCH (02:45)
[2019-08-07] MEDS: Morphine 2 MG/ML Syringe IVPUSH PRN ×3 (02:58→19:27)
[2019-08-07] MEDS: Ketorolac 15 MG/ML SDV IVPUSH PRN (03:38)
[2019-08-07] MEDS: LORazepam 2 MG/ML SDV IVPUSH PRN (04:24)
[2019-08-07] MEDS: Heparin Sodium 5,000 Units/ML Vial SUBCUT SCH (06:03)
[2019-08-07] MEDS ORDERED: Cyclobenzaprine 10 MG Tab PO PRN (07:46)
[2019-08-07] MEDS ORDERED: traMADol 50 MG Tab PO PRN (07:46)
[2019-08-07] MEDS ORDERED: Docusate Sodium 100 MG Cap PO PRN (07:46)
[2019-08-07] MEDS ORDERED: [UNRECOGNIZED DRUG - OTHER] PO PRN (07:46)
--- NOTE | 2019-08-07 08:45 | PCM.PN ---
- General Info Date of Service: 08/07/19 Admission Dx/Problem (Free Text): Admission Diagnosis/Problem Admission Diagnosis/Problem UTI, Urinary tract infectious disease Subjective Update: Much more alert this morning, reports she is in pain all over. All pain medications were on hold due to delirium. No chest pain or SOB. reports she is much improved today. Functional Status: Denies: Pain Controlled, Ambulating - Review of Systems General: Reports: No Symptoms HEENT: Reports: No Symptoms. Denies: Headaches, Visual Changes Pulmonary: Reports: No Symptoms. Denies: Shortness of Breath Cardiovascular: Reports: No Symptoms. Denies: Chest Pain Gastrointestinal: Reports: No Symptoms. Denies: Abdominal Pain Musculoskeletal: Reports: Other (all over pain, muscles chronic pain) Neurological: Reports: No Symptoms Psychiatric: Reports: No Symptoms - Patient Data Vitals - Most Recent: Last Vital Signs Temp 98.1 F 08/07/19 07:23 Pulse 100 08/07/19 07:23 Resp 18 08/07/19 07:23 BP 163/90 H 08/07/19 07:23 Pulse Ox 94 L 08/07/19 07:23 Weight - Most Recent: 48.081 kg I&O - Last 24 Hours: Intake & Output 08/06/19 08/07/19 08/07/19 22:59 06:59 14:59 Intake Total 250 1050 Output Total 750 Balance 250 300 Lab Results Last 24 Hours: Laboratory Results - last 24 hr 08/06/19 08/06/19 08/06/19 Range/Units 11:30 11:58 11:58 WBC 6.67 (4.0-11.0) K/uL RBC 4.69 (4.30-5.90) M/uL Hgb 14.0 (12.0-16.0) g/dL Hct 41.6 (36.0-46.0) % MCV 88.7 (80.0-98.0) fL MCH 29.9 (27.0-32.0) pg MCHC 33.7 (31.0-37.0) g/dL RDW Std Deviation 43.8 (28.0-62.0) fl RDW Coeff of Ros 14 (11.0-15.0) % Plt Count 96 L (150-400) K/uL MPV 8.80 (7.40-12.00) fL Neut % (Auto) 64.8 (48.0-80.0) % Lymph % (Auto) 26.7 (16.0-40.0) % [place] % (Auto) 6.6 (0.0-15.0) % Eos % (Auto) 1.3 (0.0-7.0) % Baso % (Auto) 0.6 (0.0-1.5) % Neut # (Auto) 4.3 (1.4-5.7) K/uL Lymph # (Auto) 1.8 (0.6-2.4) K/uL [place] # (Auto) 0.4 (0.0-0.8) K/uL Eos # (Auto) 0.1 (0.0-0.7) K/uL Baso # (Auto) 0.0 (0.0-0.1) K/uL Nucleated RBC % 0.0 /100WBC Nucleated RBCs # 0 K/uL INR Sodium 145 (136-145) mmol/L Potassium 3.9 (3.5-5.1) mmol/L Chloride 108 H (98-107) mmol/L Carbon Dioxide 26.9 (21.0-32.0) mmol/L BUN 10 (7.0-18.0) mg/dL Creatinine 0.7 (0.6-1.0) mg/dL Est Cr Clr Drug Dosing TNP Estimated GFR (MDRD) > 60.0 ml/min Glucose 81 (74-106) mg/dL Calcium 9.1 (8.5-10.1) mg/dL Total Bilirubin 0.7 (0.2-1.0) mg/dL AST 22 (15-37) IU/L ALT 24 (14-63) IU/L Alkaline Phosphatase 75 (46-116) U/L Troponin I < 0.050 (0.000-0.056) ng/mL Total Protein 7.4 (6.4-8.2) g/dL Albumin 3.4 (3.4-5.0) g/dL Globulin 4.0 (2.6-4.0) g/dL Albumin/Globulin Ratio 0.9 (0.9-1.6) Lipase 70 L (73-393) U/L Urine Color YELLOW Urine Appearance HAZY Urine pH 6.5 (5.0-8.0) Ur Specific [place] 1.010 (1.001-1.035) Urine Protein NEGATIVE (NEGATIVE) mg/dL Urine Glucose (UA) NEGATIVE (NEGATIVE) mg/dL Urine Ketones NEGATIVE (NEGATIVE) mg/dL Urine Occult Blood TRACE-INTACT H (NEGATIVE) Urine Nitrite POSITIVE H (NEGATIVE) Urine Bilirubin NEGATIVE (NEGATIVE) Urine Urobilinogen 1.0 (<2.0) EU/dL Ur Leukocyte Esterase LARGE H (NEGATIVE) Urine RBC 0-4 (0-2/HPF) Urine WBC 20-50 (0-5/HPF) Ur Epithelial Cells OCCASIONAL (NONE-FEW) Urine Bacteria 3+ H (NEGATIVE) 08/06/19 Range/Units 11:58 WBC (4.0-11.0) K/uL RBC (4.30-5.90) M/uL Hgb (12.0-16.0) g/dL Hct (36.0-46.0) % MCV (80.0-98.0) fL MCH (27.0-32.0) pg MCHC (31.0-37.0) g/dL RDW Std Deviation (28.0-62.0) fl RDW Coeff of Ros (11.0-15.0) % Plt Count (150-400) K/uL MPV (7.40-12.00) fL Neut % (Auto) (48.0-80.0) % Lymph % (Auto) (16.0-40.0) % [place] % (Auto) (0.0-15.0) % Eos % (Auto) (0.0-7.0) % Baso % (Auto) (0.0-1.5) % Neut # (Auto) (1.4-5.7) K/uL Lymph # (Auto) (0.6-2.4) K/uL [place] # (Auto) (0.0-0.8) K/uL Eos # (Auto) (0.0-0.7) K/uL Baso # (Auto) (0.0-0.1) K/uL Nucleated RBC % /100WBC Nucleated RBCs # K/uL INR 1.06 Sodium (136-145) mmol/L Potassium (3.5-5.1) mmol/L Chloride (98-107) mmol/L Carbon Dioxide (21.0-32.0) mmol/L BUN (7.0-18.0) mg/dL Creatinine (0.6-1.0) mg/dL Est Cr Clr Drug Dosing Estimated GFR (MDRD) ml/min Glucose (74-106) mg/dL Calcium (8.5-10.1) mg/dL Total Bilirubin (0.2-1.0) mg/dL AST (15-37) IU/L ALT (14-63) IU/L Alkaline Phosphatase (46-116) U/L Troponin I (0.000-0.056) ng/mL Total Protein (6.4-8.2) g/dL Albumin (3.4-5.0) g/dL Globulin (2.6-4.0) g/dL Albumin/Globulin Ratio (0.9-1.6) Lipase (73-393) U/L Urine Color Urine Appearance Urine pH (5.0-8.0) Ur Specific [place] (1.001-1.035) Urine Protein (NEGATIVE) mg/dL Urine Glucose (UA) (NEGATIVE) mg/dL Urine Ketones (NEGATIVE) mg/dL Urine Occult Blood (NEGATIVE) Urine Nitrite (NEGATIVE) Urine Bilirubin (NEGATIVE) Urine Urobilinogen (<2.0) EU/dL Ur Leukocyte Esterase (NEGATIVE) Urine RBC (0-2/HPF) Urine WBC (0-5/HPF) Ur Epithelial Cells (NONE-FEW) Urine Bacteria (NEGATIVE) Chace Results Last 24 Hours: Microbiology 08/06/19 11:55 Anaerobic Blood Culture - Final Blood - Venous - Lab Draw 08/06/19 11:45 Anaerobic Blood Culture - Final Blood - Venous Med Orders - Current: Current Medications Acetaminophen (Tylenol) 650 mg RECTAL Q4H PRN PRN Reason: Pain (mild 1-3) Last Admin: 08/06/19 18:03 Dose: 650 mg Baclofen (Lioresal) 10 mg PO TID [facility] Bisacodyl (Dulcolax) 10 mg RECTAL DAILY PRN PRN Reason: Constipation Last Admin: 08/06/19 16:33 Dose: 10 mg Cyclobenzaprine HCl (Flexeril) 5 - 10 mg PO TID PRN PRN Reason: MUSCLE SPASMS Docusate Sodium (Colace) 100 mg PO BID PRN PRN Reason: Constipation Escitalopram Oxalate (Lexapro) 20 mg PO DAILY [facility] Gabapentin (Neurontin) 800 mg PO QID [facility] Heparin Sodium (Porcine) (Heparin Sodium) 5,000 units SUBCUT Q8H [facility] Last Admin: 08/07/19 06:03 Dose: 5,000 units Cefepime HCl 2 gm/ Premix 50 mls @ 100 mls/hr IV Q12H [facility] Last Admin: 08/07/19 01:52 Dose: 100 mls/hr Sodium Chloride (Sodium Chloride 0.45%) 1,000 mls @ 125 mls/hr IV ASDIRECTED [facility] Last Admin: 08/07/19 04:25 Dose: 125 mls/hr Lorazepam (Ativan) 1 mg IVPUSH Q6H PRN PRN Reason: Agitation Last Admin: 08/07/19 04:24 Dose: 1 mg Meloxicam (Mobic) 15 mg PO DAILY [facility] Morphine Sulfate (Morphine) 2 mg IVPUSH Q2H PRN PRN Reason: Pain Last Admin: 08/07/19 06:04 Dose: 2 mg Ondansetron HCl (Zofran) 4 mg IVPUSH Q4H PRN PRN Reason: Nausea Last Admin: 08/06/19 20:03 Dose: 4 mg Brompheniramine/Pseudoephed/Dm [ Bromphenir- Pseudoephed-Dm 0 each PO Q4H PRN PRN Reason: cough and congestion Oxycodone Myristate ([Xtampza Er] 36 Mg) 1 each PO Q12H [facility] Tramadol HCl (Ultram) 100 mg PO Q6H PRN PRN Reason: Pain Discontinued Medications Cefepime HCl 2 gm/ Premix 50 mls @ 100 mls/hr IV ONETIME ONE Stop: 08/06/19 13:23 Last Admin: 08/06/19 13:36 Dose: 100 mls/hr Sodium Chloride (Sodium Chloride 0.45%) 1,000 mls @ 75 mls/hr IV Q13H [facility] Last Infusion: 08/07/19 02:43 Dose: 125 mls/hr Vancomycin HCl 1 gm/ Sodium (Chloride) 250 mls @ 250 mls/hr IV Q12H [facility] Last Admin: 08/06/19 14:58 Dose: 250 mls/hr Ketorolac Tromethamine (Toradol) 15 mg IVPUSH Q6H PRN PRN Reason: Pain Stop: 08/11/19 18:21 Last Admin: 08/07/19 03:38 Dose: 15 mg Vancomycin HCl (Vancomycin) 1,066.5 mg 15 mg/kg (1066.5 mg) IV Q12H [facility] Last Admin: 08/06/19 14:51 Dose: Not Given Vancomycin HCl (Pharmacy To Dose - Vancomycin) 1 dose .XX ASDIRECTED [facility] - Exam General: Alert, Oriented, Cooperative, No Acute Distress Lungs: Clear to Auscultation, Normal Respiratory Effort Cardiovascular: Regular Rate, Regular Rhythm GI/Abdominal Exam: Normal Bowel Sounds, Soft, Non-Tender Extremities: Normal Inspection, Normal Range of Motion, Non-Tender, No Pedal Edema Neurological: No New Focal Deficit Psy/Mental Status: Alert, Normal Affect, Normal Mood Sepsis Event Note - Evaluation Sepsis Screening Result: No Definite Risk - Focused Exam Vital Signs: Vital Signs Temp Pulse Resp BP Pulse Ox 08/07/19 07:23 98.1 F 100 18 163/90 H 94 L 08/07/19 04:00 99.2 F 94 19 134/78 96 08/07/19 00:00 97.8 F 100 18 135/69 95 Date Exam was Performed: 08/07/19 Time Exam was Performed: 09:56 - Problem List & Annotations (1) Delirium due to another medical condition SNOMED Code(s): 1568693 Code(s): F05 - DELIRIUM DUE TO KNOWN PHYSIOLOGICAL CONDITION Status: Suspected Current Visit: Yes (2) UTI (urinary tract infection) SNOMED Code(s): 91779337 Code(s): N39.0 - URINARY TRACT INFECTION, SITE NOT SPECIFIED Status: Acute Current Visit: Yes (3) Constipation SNOMED Code(s): 43289397 Code(s): K59.00 - CONSTIPATION, UNSPECIFIED Status: Acute Current Visit: No Qualifiers: Constipation type: unspecified constipation type Qualified Code(s): K59.00 - Constipation, unspecified (4) Cerebral palsy SNOMED Code(s): 559430644 Code(s): G80.9 - CEREBRAL PALSY, UNSPECIFIED Status: Chronic Priority: High Current Visit: No Qualifiers: Cerebral palsy type: spastic quadriplegic Qualified Code(s): G80.0 - Spastic quadriplegic cerebral palsy (5) Self-care deficit for feeding, bathing, and toileting SNOMED Code(s): 024077580, 68103112, 614915510, 260131051 Code(s): Z74.1 - NEED FOR ASSISTANCE WITH PERSONAL CARE Status: Chronic Priority: High Current Visit: No - Problem List Review Problem List Initiated/Reviewed/Updated: Yes - My Orders Last 24 Hours: My Active Orders 08/06/19 14:12 Intake and Output [RC] Q12H Oxygen Therapy [RC] PRN VTE/DVT Education [RC] PER UNIT ROUTINE Vital Signs [RC] Q4H Acetaminophen [Tylenol] 650 mg RECTAL Q4H PRN Ondansetron [Zofran] 4 mg IVPUSH Q4H PRN 08/06/19 14:15 Heparin Sodium 5,000 units SUBCUT Q8H 08/06/19 15:12 bisacodyL [Dulcolax] 10 mg RECTAL DAILY PRN Resuscitation Status Routine 08/06/19 19:17 Communication Order [RC] PER UNIT ROUTINE 08/07/19 01:30 Cefepime [Maxipime in D5W 2 GM/50 ML] 2 gm Premix Bag 1 bag IV Q12H 08/07/19 05:11 BASIC METABOLIC PANEL,BMP [CHEM] AM CBC WITH AUTO DIFF [HEME] AM 08/07/19 07:46 Cyclobenzaprine [Flexeril] 5 - 10 mg PO TID PRN Docusate Sodium [Colace] 100 mg PO BID PRN Patient's Own Medication [Ptom] 0 each PO Q4H PRN traMADol [Ultram] 100 mg PO Q6H PRN 08/07/19 08:00 Patient's Own Medication [Ptom] 1 each PO Q12H 08/07/19 09:00 Escitalopram [Lexapro] 20 mg PO DAILY Meloxicam [Mobic] 15 mg PO DAILY 08/07/19 12:00 Gabapentin [Neurontin] 800 mg PO QID 08/07/19 14:00 Baclofen [Lioresal] 10 mg PO TID 08/07/19 Breakfast Regular Diet [DIET] 08/08/19 05:11 BASIC METABOLIC PANEL,BMP [CHEM] AM CBC WITH AUTO DIFF [HEME] AM 08/09/19 05:11 BASIC METABOLIC PANEL,BMP [CHEM] AM CBC WITH AUTO DIFF [HEME] AM - Plan Plan:: This 54 year old female admitted with delirium secondary to UTI 1. Delirium: Resolved - Likely secondary to UTI 2. UTI: - Continue Cefepime - Past UC reveals resistance to fluoroquinolones - Gentle IVF 1/2 NS 100 mls/hr overnight - UC, BC pending. 3. Constipation - Noted on CT - Dulcolax now and monitor results 4. Cerebral Palsy/chronic pain/ muscle spasticity - More alert and in pain, restart home medications. VTE prophylaxis: heparin Code Status: Full Code Dispoe: 2-3 days pending improvement
[2019-08-07] MEDS: Meloxicam 7.5 MG Tab PO SCH (09:08)
[2019-08-07] MEDS: Escitalopram 10 MG Tab PO SCH (09:12)
[2019-08-07] MEDS: Oxycodone Myristate [Xtampza Er] 36 MG PO SCH ×2 (09:13→21:22)
[2019-08-07 09:56] LABS: BLOOD UREA NITROGEN,BUN 14 mg/dL (7.0-18.0); CARBON DIOXIDE,CO2 25.1 mmol/L (21.0-32.0); CHLORIDE,CL 106 mmol/L (98-107); GLUCOSE RANDOM 83 mg/dL (74-106); POTASSIUM,K 3.7 mmol/L (3.5-5.1); SODIUM,NA 142 mmol/L (136-145)
[2019-08-07] MEDS ORDERED: Baclofen 10 MG Tab PO SCH (10:30)
[2019-08-07] MEDS: Gabapentin 800 MG Tab PO SCH ×3 (13:22→23:22)
[2019-08-07] MEDS: Baclofen 10 MG Tab PO SCH ×2 (13:22→21:20)
[2019-08-08] MEDS: Cefepime 2 GM in Premix Bag 1 BAG IV SCH (00:37)
[2019-08-08] MEDS: Baclofen 10 MG Tab PO SCH (05:32)
[2019-08-08] MEDS: Gabapentin 800 MG Tab PO SCH ×2 (05:33→11:37)
[2019-08-08] MEDS: Morphine 2 MG/ML Syringe IVPUSH PRN ×2 (05:49→10:25)
[2019-08-08 06:37] LABS: BLOOD UREA NITROGEN,BUN 13 mg/dL (7.0-18.0); CARBON DIOXIDE,CO2 28.1 mmol/L (21.0-32.0); CHLORIDE,CL 108 mmol/L (98-107); GLUCOSE RANDOM 85 mg/dL (74-106); POTASSIUM,K 3.7 mmol/L (3.5-5.1); SODIUM,NA 143 mmol/L (136-145)
[2019-08-08 07:15] VITALS: PULSE 78
[2019-08-08] MEDS: Oxycodone Myristate [Xtampza Er] 36 MG PO SCH (07:52)
[2019-08-08] MEDS: Escitalopram 10 MG Tab PO SCH (08:21)
[2019-08-08] MEDS ORDERED: Escitalopram 10 MG Tab ONE (08:23)
[2019-08-08] MEDS: Meloxicam 7.5 MG Tab PO SCH (08:23)
[2019-08-08] MEDS ORDERED: Ertapenem 1 GM in Sodium Chloride 0.9% 50 ML IV SCH (08:45)
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
[2019-08-08 11:34] VITALS: BP 134/71
== END 2019-08-08 13:20 | disposition home or self-care (01) | DRG 689 ==
LOC: MW.ED 10:39 → MW.MS 13:06
PROVIDERS: ADMIT Internal Medicine; ATTEND Internal Medicine
DX: N39.0 Urinary tract infection, site not specified (principal); H70.92 Unspecified mastoiditis, left ear; R41.0 Disorientation, unspecified; G82.54 Quadriplegia, C5-C7 incomplete; V89.2XXS Person injured in unspecified motor-vehicle accident, traffic, sequela; H91.90 Unspecified hearing loss, unspecified ear; I10 Essential (primary) hypertension; G89.29 Other chronic pain; M19.90 Unspecified osteoarthritis, unspecified site; M54.9 Dorsalgia, unspecified; G80.0 Spastic quadriplegic cerebral palsy; B96.20 Unspecified Escherichia coli [E. coli] as the cause of diseases classified elsewhere; Z96.649 Presence of unspecified artificial hip joint; Z88.1 Allergy status to other antibiotic agents; F32.9 Major depressive disorder, single episode, unspecified; G62.9 Polyneuropathy, unspecified; K59.00 Constipation, unspecified; Z74.1 Need for assistance with personal care; Z88.5 Allergy status to narcotic agent; Z88.6 Allergy status to analgesic agent; Z88.0 Allergy status to penicillin; Z88.2 Allergy status to sulfonamides; Z88.8 Allergy status to other drugs, medicaments and biological substances; Z79.899 Other long term (current) drug therapy; Z87.891 Personal history of nicotine dependence
CPT/HCPCS: 36415; 51702; 70450; 70450-26; 71045; 71045-26; 74176; 74176-26; 80048; 80053; 81001; 83690; 84484; 85025; 85610; 87040; 87086; 87088; 87186; 93005; 99284; 99285-25; A9270-GY; J0692; J1335; J1644; J1885; J2060; J2270; J2405; J3370; J7030; J7050

== ENCOUNTER 2020-01-04 08:50 | Day surgery (SDC) | payer MEDICAID ==
[~2020-01-04 08:50] MED LIST changes: -Iopamidol 755 MG/ML 500 ML Multipack Bottle IVPUSH STA; +Lactated Ringers 1,000 ML IV SCH; +Lidocaine 2% 5 ML SDV ONE; +Midazolam 1 MG/ML 2 ML SDV ONE; +fentaNYL 100 MCG/2 ML SDV ONE
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
[2020-01-04] MEDS ORDERED: Propofol 200 MG/20 ML SDV ONE (10:03)
--- NOTE | 2020-01-04 10:54 | PCM.OPNOTE ---
- General Post-Op/Procedure Note Date of Surgery/Procedure: 01/04/20 Operative Procedure(s): Esophagogastroduodenoscopy with biopsy Pre Op Diagnosis: Dysphagia. Traumatic brain injury. Post-Op Diagnosis: Mild chronic gastritis. Esophageal dysmotility. Anesthesia Technique: MAC (ASA III) Primary Surgeon: Bonilla Alejandra Corporate Affairs Manager: Nellie Meza Condition: Good Free Text/Narrative:: DICTATION [id number] CPT CODE 50597
[2020-01-04] MEDS ORDERED: Lactated Ringers 1,000 ML IV SCH (11:00)
--- NOTE | 2020-01-04 11:09 | PCM.POSTAN ---
POST ANESTHESIA ASSESSMENT - MENTAL STATUS Mental Status: Alert, Oriented - VITAL SIGNS Vital Signs: Last Vital Signs Temp 36 C L 01/04/20 10:45 Pulse 93 01/04/20 11:00 Resp 22 H 01/04/20 11:00 BP 119/75 01/04/20 11:00 Pulse Ox 99 01/04/20 11:00 - RESPIRATORY Respiratory Status: Respiratory Rate WNL, Airway Patent, O2 Saturation Stable - CARDIOVASCULAR CV Status: Pulse Rate WNL, Blood Pressure Stable - GASTROINTESTINAL GI Status: No Symptoms - PAIN Pain Score: 0 - POST OP HYDRATION Hydration Status: Adequate & Stable - OBSERVATIONS Free Text/Narrative:: No anesthesia problems
--- NOTE | 2020-01-04 11:59 | PCM48HPAN ---
Post Anesthesia Note - EVALUATION WITHIN 48HRS OF ANESTHETIC Vital Signs in Normal Range: Yes Patient Participated in Evaluation: Yes Respiratory Function Stable: Yes Airway Patent: Yes Cardiovascular Function Stable: Yes Hydration Status Stable: Yes Pain Control Satisfactory: Yes Nausea and Vomiting Control Satisfactory: Yes Mental Status Recovered: Yes Vital Signs: Last Vital Signs Temp 36 C L 01/04/20 10:45 Pulse 93 01/04/20 11:00 Resp 22 H 01/04/20 11:00 BP 119/75 01/04/20 11:00 Pulse Ox 99 01/04/20 11:00 - COMMENTS/OBSERVATIONS Free Text/Narrative:: no anesthesia problems
--- NOTE | 2020-01-04 13:52 | OR ---
SURGEON: Bonilla Alejandra M.D. DATE OF PROCEDURE: 01/04/2020 OPERATION PERFORMED: Esophagogastroduodenoscopy with biopsy. PRIMARY SURGEON: Bonilla Alejandra MD AIRLINE RESERVATION AGENT: Deck Molder: GAURI Aguilar student. ANESTHESIA: MAC. ASA CLASSIFICATION: III. PREOPERATIVE DIAGNOSIS: Dysphagia. POSTOPERATIVE DIAGNOSES: 1. Mild chronic gastritis, no esophageal stricture. 2. Poor esophageal motility. DESCRIPTION OF PROCEDURE: The patient was taken to the endoscopy room and maintained in the supine position. Time-out was called for appropriate identification of the patient and procedure. Monitored anesthesia care was provided. The bite block was placed between the patient's gums and the gastroscope inserted through the bite block into the oropharynx. This was advanced through the esophagus and stomach into the duodenum where examination was now carried out in a retrograde fashion. The duodenum showed no acute inflammatory changes or ulcerations. The gastroscope was withdrawn to the stomach, which did show mild chronic gastritis. Antral biopsies were obtained to look for the presence of Helicobacter pylori. The gastroscope was retroflexed to visualize the proximal stomach. No tumors or polyps were seen and there was no significant hiatal hernia noted. No ulcers were seen along the greater or lesser curvatures. The gastroscope was then withdrawn to the GE junction, which was well defined and showed no acute inflammatory changes or ulcerations. The esophagus itself demonstrated poor motility with tertiary waves, but no significant longitudinal stripping waves. As the scope was withdrawn, the vocal cords were visualized and noted to move symmetrically. There did appear to be some mild irritation on the cords themselves, but no lesions were identified. The gastroscope was then removed with the patient having tolerated the procedure well. She was taken to recovery room in stable condition. NEHEMIAH / LULA /[id number]
[2020-01-04 15:48] VITALS: BP 120/88; PULSE 95
== END 2020-01-04 12:15 | disposition home or self-care (01) ==
LOC: MW.SDS 08:50
PROVIDERS: ATTEND Surgery
DX: K29.50 Unspecified chronic gastritis without bleeding (principal); K22.8 Other specified diseases of esophagus; S14.109A Unspecified injury at unspecified level of cervical spinal cord, initial encounter; K59.09 Other constipation; F41.9 Anxiety disorder, unspecified; G89.4 Chronic pain syndrome; G62.9 Polyneuropathy, unspecified; F17.200 Nicotine dependence, unspecified, uncomplicated; F10.10 Alcohol abuse, uncomplicated; M19.042 Primary osteoarthritis, left hand; J44.9 Chronic obstructive pulmonary disease, unspecified; F32.9 Major depressive disorder, single episode, unspecified; M48.02 Spinal stenosis, cervical region; I10 Essential (primary) hypertension; E66.9 Obesity, unspecified; G82.50 Quadriplegia, unspecified; D69.6 Thrombocytopenia, unspecified; Z88.8 Allergy status to other drugs, medicaments and biological substances; Z88.5 Allergy status to narcotic agent; Z88.2 Allergy status to sulfonamides; Z88.0 Allergy status to penicillin; Z88.1 Allergy status to other antibiotic agents; Z79.899 Other long term (current) drug therapy; Z98.1 Arthrodesis status; Z68.39 Body mass index [BMI] 39.0-39.9, adult; Z79.891 Long term (current) use of opiate analgesic; Z79.1 Long term (current) use of non-steroidal anti-inflammatories (NSAID)
CPT/HCPCS: 43239; 88305; 88312; J2001; J2250; J2704; J3010; J7120; 00731

== ENCOUNTER 2020-07-13 14:13 | Emergency (ER) | payer MEDICAID ==
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
[2020-07-13] MEDS ORDERED: Sodium Chloride 0.9% 10 ML Syringe FLUSH PRN (14:29)
[2020-07-13] MEDS ORDERED: Sodium Chloride 0.9% 2.5 ML Syringe FLUSH PRN (14:29)
[2020-07-13 14:37] VITALS: BP 137/107; PULSE 104
[2020-07-13 16:03] LABS: BLOOD UREA NITROGEN,BUN 8 mg/dL (7.0-18.0); CHLORIDE,CL 102 mmol/L (98-107); GLUCOSE RANDOM 109 mg/dL (74-106); POTASSIUM,K 4.2 mmol/L (3.5-5.1); SODIUM,NA 138 mmol/L (136-145)
[2020-07-13] MEDS ORDERED: Iopamidol 755 MG/ML 500 ML Multipack Bottle IVPUSH ONE (17:10)
--- NOTE | 2020-07-13 17:47 | CT ---
HISTORY: Evaluate for bowel obstruction. Abdominal pain. COMPARISON: CT of the abdomen and pelvis, 06/05/2020. TECHNIQUE: CT of the abdomen and pelvis. 100 cc of Isovue-370 IV. Coronal/sagittal reconstruction images. FINDINGS: Lung bases: There is no pleural or pericardial effusion. The heart size is normal. There is no acute airspace disease. There is no basilar pneumothorax. Abdomen/pelvis: Nodular liver surface, which suggest cirrhosis. No solid hepatic mass. Contracted gallbladder. The spleen size is normal. There is no adrenal mass. There is no hydronephrosis, solid renal mass, or perinephric fluid. There is no pancreatic mass or pancreatic duct dilation. No glandular atrophy. There are portosystemic collateral vessels present to the left of the abdominal aorta. These are seen well on image 103 of series 201. There is a suprapubic catheter in the urinary bladder. No adnexal mass. There is a moderate amount of colonic fecal material. There is no evidence for a small bowel or colonic obstruction. There is no pneumatosis. There is no portal venous gas. There is no evidence on CT for a bowel obstruction. No pelvic sidewall lymphadenopathy. The retroperitoneum and gastrohepatic ligament are normal. The visceral artery branches are patent. The bone windows demonstrate intraosseous screws present about the right proximal femur. There are no suspicious bone lesions identified on CT. The patient has undergone posterior spinal fusion/instrumentation from L4 through S1. IMPRESSION: 1. No evidence on CT for a bowel obstruction. 2. Cirrhotic liver morphology. No abdominal or pelvic ascites. No solid hepatic mass on single phase CT. 3. Suprapubic catheter in the urinary bladder. Extraperitoneal space of Retzius is clear. 4. There is no abdominal or pelvic lymphadenopathy by size criteria. Please note that all CT scans at this facility use dose modulation, iterative reconstruction, and/or weight-based dosing when appropriate to reduce radiation dose to as low as reasonably achievable. Dictated by Garrison Hanley MD @ Jul 13 2020 5:40PM Signed by Dr. Garrison Hanley @ Jul 13 2020 5:46PM
[2020-07-13] MEDS ORDERED: Magnesium Citrate Solution 296 ML Bottle PO ONE (17:51)
[2020-07-13] MEDS ORDERED: Nitrofurantoin Monohydrate/Macrocrystalline 100 MG Cap PO ONE (18:00)
== END 2020-07-13 18:48 | disposition home or self-care (01) ==
LOC: MW.ED 14:13
DX: K59.00 Constipation, unspecified (principal); N39.0 Urinary tract infection, site not specified; G80.9 Cerebral palsy, unspecified; E66.9 Obesity, unspecified; I10 Essential (primary) hypertension; G62.9 Polyneuropathy, unspecified; Z88.6 Allergy status to analgesic agent; Z88.1 Allergy status to other antibiotic agents; Z88.5 Allergy status to narcotic agent; Z88.8 Allergy status to other drugs, medicaments and biological substances; Z88.2 Allergy status to sulfonamides; Z88.0 Allergy status to penicillin; Z79.899 Other long term (current) drug therapy
CPT/HCPCS: 36415; 74177; 80053; 81001; 85025; 87086; 87088; 87186; 99284; A9270; Q9967; 99283

== ENCOUNTER 2020-11-20 09:15 | Emergency (ER) | payer MEDICAID ==
[2020-11-20] MEDS ORDERED: Ondansetron 4 MG Tab.DIS PO ONE (10:04)
[2020-11-20] MEDS ORDERED: HYDROmorphone 1 MG/ML Syringe IM ONE (10:04)
--- NOTE | 2020-11-20 13:20 | CT ---
For Patients: As a result of the Century Cures Act, medical imaging exams and procedure reports are released immediately into your electronic medical record. You may view this report before your referring provider. If you have questions, please contact your health care provider. HISTORY: Right lower leg pain. FINDINGS: The right lower leg was studied in the axial plane. Sagittal and coronal 2 dimensional reconstructions were then performed. Severe osteopenia is noted. No findings for fracture or dislocation. The extensor mechanism is intact. Diffuse increased patchy density is seen in the deep subcutaneous fat circumferentially about the length of the lower leg consistent with diffuse edema within the subcutaneous fat. A discrete rounded or ovoid collection is not identified. No findings for mass lesion. There is diffuse atrophy and fatty replacement of the calf musculature without evidence for edema within the muscular compartments. IMPRESSION: Evidence for diffuse edema in the subcutaneous fat of unknown cause. Consider possibility for cellulitis. Please note that all CT scans at this facility use dose modulation, iterative reconstruction, and/or weight-based dosing when appropriate to reduce radiation dose to as low as reasonably achievable. Dictated by Tyron Castillo MD @ 11/20/2020 1:17:[address] Tyron Castillo @ Nov 20 2020 1:17PM
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
[2020-11-20 13:55] VITALS: BP 137/77; PULSE 88
== END 2020-11-20 14:12 | disposition home or self-care (01) ==
LOC: MW.ED 09:15
DX: S72.001G Fracture of unspecified part of neck of right femur, subsequent encounter for closed fracture with delayed healing (principal); I10 Essential (primary) hypertension; E66.9 Obesity, unspecified; Z79.899 Other long term (current) drug therapy; Z68.39 Body mass index [BMI] 39.0-39.9, adult; Z88.8 Allergy status to other drugs, medicaments and biological substances; Z88.6 Allergy status to analgesic agent; Z88.1 Allergy status to other antibiotic agents; Z88.5 Allergy status to narcotic agent; Z88.2 Allergy status to sulfonamides; Z88.0 Allergy status to penicillin; X58.XXXA Exposure to other specified factors, initial encounter
CPT/HCPCS: 72192; 73700; 96372; 99283; A9270; J1170

== ENCOUNTER 2020-12-15 12:29 | Emergency (ER) | payer MEDICAID ==
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
[2020-12-15] MEDS ORDERED: Sodium Chloride 0.9% 2.5 ML Syringe FLUSH PRN (12:59)
[2020-12-15] MEDS ORDERED: Sodium Chloride 0.9% 10 ML Syringe FLUSH PRN (12:59)
[2020-12-15 14:08] LABS: BLOOD UREA NITROGEN,BUN 11 mg/dL (7.0-18.0); CARBON DIOXIDE,CO2 32.5 mmol/L (21.0-32.0); CHLORIDE,CL 100 mmol/L (98-107); GLUCOSE RANDOM 120 mg/dL (74-106); POTASSIUM,K 4.5 mmol/L (3.5-5.1); SODIUM,NA 137 mmol/L (136-145)
--- NOTE | 2020-12-15 14:18 | CR ---
INDICATION: Shortness of breath TECHNIQUE: Portable upright AP view of the chest COMPARISON: CTA chest 12/04/2020 FINDINGS/IMPRESSION: Slight prominence of the pulmonary interstitium, which may be technical or may reflect interstitial thickening. No superimposed pulmonary opacities appreciated. No sizable pleural effusion. No pneumothorax. Normal cardiomediastinal silhouette. No significant thoracic osseus abnormality demonstrated. Dictated by Ildefonso Bradshaw MD @ 12/15/2020 2:17:[address] Ildefonso Bradshaw @ Dec 15 2020 2:17PM
[2020-12-15] MEDS ORDERED: Iopamidol 755 MG/ML 500 ML Multipack Bottle IVPUSH ONE (14:58)
--- NOTE | 2020-12-15 16:00 | CT ---
INDICATION: Dyspnea, hypoxia, very D-dimer TECHNIQUE: Contrast enhanced axial CT imaging through the chest, optimized for assessment of the pulmonary arterial tree. 71 mL Isovue 370 contrast agent was administered intravenously. Sagittal and coronal reconstructions are provided. COMPARISON: None FINDINGS: There is adequate opacification of the pulmonary arterial tree without evidence of thromboembolism. The main pulmonary artery is nonenlarged. The heart is normal in size. There is no pericardial effusion. The thoracic aorta is normal in caliber. There is no mediastinal lymphadenopathy. Focal irregular ground-glass airspace opacities noted in the apical left upper lobe and anterior right upper lobe. There is no pleural effusion or pneumothorax. Incidental note is made of fusion of the T3 and T4 vertebra. The osseous structures are otherwise unremarkable. No significant abnormality is demonstrated in the visualized upper abdomen. IMPRESSION: 1. Focal irregular ground-glass airspace opacities involving both upper lobes. Findings may represent infectious infiltrates. COVID-19 pneumonia is not excluded. Correlate clinically. 2. No evidence of pulmonary thromboembolism. Please note that all CT scans at this facility use dose modulation, iterative reconstruction, and/or weight-based dosing when appropriate to reduce radiation dose to as low as reasonably achievable. Dictated by Ildefonso Bradshaw MD @ 12/15/2020 3:58:[address] Ildefonso Bradshaw @ Dec 15 2020 3:58PM
[2020-12-15 16:20] VITALS: BP 119/78; PULSE 87
--- NOTE | 2020-12-15 17:53 | PCM.EKG ---
#1 Interpretation EKG Interpretation Comments: EKG: As interpreted by ER physician: Lucas: Nonspecific ST-T wave abnormalities Normal axis No evidence of ST elevation [place] Sinus tachycardia with a heart rate of 107
== END 2020-12-15 16:30 | disposition home or self-care (01) ==
LOC: MW.ED 12:29
DX: J06.9 Acute upper respiratory infection, unspecified (principal); I10 Essential (primary) hypertension; E66.9 Obesity, unspecified; Z68.42 Body mass index [BMI] 45.0-49.9, adult; Z88.0 Allergy status to penicillin; Z88.2 Allergy status to sulfonamides; Z88.1 Allergy status to other antibiotic agents; Z88.5 Allergy status to narcotic agent; Z88.8 Allergy status to other drugs, medicaments and biological substances
CPT/HCPCS: 36415; 71045; 71275; 80053; 82803; 83605; 84484; 85025; 85379; 87040; 93005; 99284; Q9967; 99283

== ENCOUNTER 2021-03-14 18:33 | Emergency (ER) | payer MEDICAID ==
[2021-03-14] MEDS ORDERED: Sodium Chloride 0.9% 10 ML Syringe FLUSH PRN (18:39)
[2021-03-14] MEDS ORDERED: Sodium Chloride 0.9% 2.5 ML Syringe FLUSH PRN (18:39)
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
--- NOTE | 2021-03-14 19:54 | CR ---
INDICATION: Abdominal pain and distension. COMPARISON: CT of the abdomen and pelvis 03/10/2021. Abdominal radiograph 08/03/2017. TECHNIQUE: Abdomen, 3 views. FINDINGS: Nonobstructive bowel gas pattern. Gaseous distension of the stomach and ascending colon. Moderate amount of stool. No pneumatosis. The lung bases are clear. Right convex lumbar curve. Lumbar spine and right femur hardware. IMPRESSION: 1. Nonobstructive bowel gas pattern. 2. Gaseous distention of the stomach and ascending colon. Dictated by Jody Chilel MD @ 03/14/2021 7:53:02 PM (Electronically Signed)
--- NOTE | 2021-03-14 19:56 | CR ---
INDICATION: Abdominal pain and distension. TECHNIQUE: Chest 1 view. COMPARISON: Chest radiograph 12/15/2020. FINDINGS: No focal consolidation, pleural effusion, or pneumothorax. Normal heart size and pulmonary vascularity. Cervical spine hardware. IMPRESSION: No acute cardiopulmonary findings. Dictated by Jody Chilel MD @ 03/14/2021 7:54:31 PM (Electronically Signed)
[2021-03-14 20:29] LABS: BLOOD UREA NITROGEN,BUN 8 mg/dL (7.0-18.0); CARBON DIOXIDE,CO2 27.6 mmol/L (21.0-32.0); CHLORIDE,CL 103 mmol/L (98-107); GLUCOSE RANDOM 131 mg/dL (74-106); LIPASE 46 U/L (73-393); POTASSIUM,K 4.1 mmol/L (3.5-5.1); SODIUM,NA 139 mmol/L (136-145)
[2021-03-14] MEDS ORDERED: fentaNYL 50 MCG/ML SDV IVPUSH ONE (22:07)
[2021-03-14] MEDS ORDERED: Ondansetron 4 MG/2 ML SDV IVPUSH ONE (22:08)
[2021-03-14 22:13] VITALS: PULSE 101
[2021-03-14 22:19] VITALS: BP 159/76
== END 2021-03-14 23:21 | disposition home or self-care (01) ==
LOC: MW.ED 18:33
DX: R10.84 Generalized abdominal pain (principal); I10 Essential (primary) hypertension; M19.90 Unspecified osteoarthritis, unspecified site; E66.9 Obesity, unspecified; Z68.41 Body mass index [BMI] 40.0-44.9, adult; Z88.1 Allergy status to other antibiotic agents; Z88.8 Allergy status to other drugs, medicaments and biological substances; Z88.6 Allergy status to analgesic agent; Z88.5 Allergy status to narcotic agent; Z88.0 Allergy status to penicillin; Z88.2 Allergy status to sulfonamides; Z79.899 Other long term (current) drug therapy
CPT/HCPCS: 36415; 71045; 74018; 80053; 81001; 83605; 83690; 85025; 96374; 96375; 99284; J2405; J3010

== ENCOUNTER 2024-09-18 11:43 | Inpatient (IN) | payer MEDICAID ==
[2024-09-18] MEDS ORDERED: Sodium Chloride 0.9% 2.5 ML Syringe FLUSH PRN (13:23)
[2024-09-18] MEDS ORDERED: Sodium Chloride 0.9% 10 ML Syringe FLUSH PRN (13:23)
[2024-09-18] MEDS ORDERED: Sodium Chloride 0.9% 20 ML SDV IV PRN (13:23)
[2024-09-18] MEDS: Sodium Chloride 0.9% 1,000 ML IV ONE (13:47)
[2024-09-18 13:58] LABS: HEMATOCRIT 46.9 % (37.0-47.0); HEMOGLOBIN 15.5 g/dL (12.0-16.0); MEAN CORPUSCULAR HEMOGLOBIN 31.9 pg (28.0-32.0); MEAN CORPUSCULAR VOLUME 96.5 fL (83.0-99.0); MEAN PLATELET VOLUME 9.3 fL (9.4-12.3); RED BLOOD CELL COUNT 4.86 M/uL (4.10-5.30); WHITE BLOOD CELL COUNT,WBC 9.68 K/uL (3.9-11.3)
[2024-09-18 14:13] LABS: A/G RATIO 0.7 (0.9-1.6); ALBUMIN 2.9 g/dL (3.4-5.0); CALCIUM 9.1 mg/dL (8.5-10.1); CARBON DIOXIDE,CO2 28.9 mmol/L (21.0-32.0); CREATININE 0.5 mg/dL (0.6-1.0); EST CRCL DRUG DOSING (CG) 113.41 mL/min; POTASSIUM,K 4.1 mmol/L (3.5-5.1); PROTEIN TOTAL,TP 6.9 g/dL (6.4-8.2)
[2024-09-18 14:14] LABS: PLATELET COUNT,PLT 92 K/uL (150-400)
[2024-09-18 14:16] LABS: LACTIC ACID 2.9 mmol/L (0.4-2.0)
[2024-09-18 14:23] LABS: BAND PERCENT MAN 1 %; EOSINOPHILS ABSOLUTE MAN 0.29 K/uL (0.00-0.45); EOSINOPHILS PERCENT MAN 3 % (0-6); LYMPHOCYTES ABSOLUTE MAN 2.42 K/uL (1.00-4.80); LYMPHOCYTES PERCENT MAN 25 % (24-44); MONOCYTES ABSOLUTE MAN 1.65 K/uL (0.00-0.80); MONOCYTES PERCENT MAN 17 % (0-8); SEG NEUTROPHILS ABSOLUTE MAN 5.23 K/uL (1.80-7.70); SEG NEUTROPHILS PERCENT MAN 54 % (41-71)
[2024-09-18 14:24] LABS: PLATELET COUNT ESTIMATE DECREASED
[2024-09-18 14:54] LABS: APPEARANCE,URINE CLOUDY; BILIRUBIN,URINE NEGATIVE (NEGATIVE); COLOR,URINE YELLOW; GLUCOSE,URINE NEGATIVE (NEGATIVE); KETONES,URINE 15 mg/dL (NEGATIVE); LEUKOCYTE ESTERASE,URINE SMALL (NEGATIVE); NITRITE,URINE POSITIVE (NEGATIVE); OCCULT BLOOD,URINE MODERATE (NEGATIVE); PROTEIN,URINE NEGATIVE (NEGATIVE)
[2024-09-18 15:02] LABS: BACTERIA,URINE 4+ (NEGATIVE); EPITHELIAL CELLS,URINE FEW (NONE-FEW); RBC,URINE 0-2 (0-2/HPF)
[2024-09-18] MEDS: Iopamidol 755 MG/ML 500 ML Multipack Bottle IVPUSH STA (15:52)
[2024-09-18] MEDS ORDERED: oxyCODONE 5 MG Tab PO PRN (18:01)
[2024-09-18] MEDS ORDERED: Glucagon,Human Recombinant 1 MG Vial IM PRN (18:07)
[2024-09-18] MEDS ORDERED: 50% Dextrose in Water 50 ML Syringe IVPUSH PRN (18:07)
[2024-09-18] MEDS: Acetaminophen/HYDROcodone 325-5 MG Tab PO ONE (18:10)
[2024-09-18] MEDS: Magnesium Oxide 400 MG Tab PO SCH (19:59)
[2024-09-18] MEDS: Bisacodyl 10 MG Supp RECTAL ONE (20:00)
[2024-09-18] MEDS: Enoxaparin 40 MG/0.4 ML Syringe SUBCUT SCH (20:02)
[2024-09-18] MEDS: Hydrocortisone 20 MG Tab PO SCH (20:57)
[2024-09-18] MEDS: Baclofen 10 MG Tab PO SCH (21:00)
[2024-09-18] MEDS: Gabapentin 800 MG Tab PO SCH (21:00)
[2024-09-18] MEDS ORDERED: Cefepime 2 GM in Sodium Chloride 0.9% 50 ML IV SCH (22:00)
[2024-09-18] MEDS: Meropenem 1 GM in Sodium Chloride 0.9% 100 ML IV SCH (22:30)
[2024-09-19 06:05] LABS: BASOPHILS ABSOLUTE AUTO 0.06 K/uL (0.00-0.20); BASOPHILS PERCENT AUTO 0.9 % (0.0-1.0); EOSINOPHILS PERCENT AUTO 3.1 % (0.0-6.0); HEMATOCRIT 44.1 % (37.0-47.0); HEMOGLOBIN 14.6 g/dL (12.0-16.0); IMMATURE GRAN ABSOLUTE AUTO 0.02 K/uL (0.00-0.05); IMMATURE GRAN PERCENT AUTO 0.3 % (0.0-0.4); LYMPHOCYTES ABSOLUTE AUTO 2.37 K/uL (1.00-4.80); LYMPHOCYTES PERCENT AUTO 36.3 % (24.0-44.0); MEAN CORPUSCULAR HEMOGLOBIN 32.2 pg (28.0-32.0); MEAN CORPUSCULAR HGB CONC 33.1 g/dL (32.0-36.0); MEAN CORPUSCULAR VOLUME 97.1 fL (83.0-99.0); MEAN PLATELET VOLUME 9.5 fL (9.4-12.3); MONOCYTES PERCENT AUTO 19.9 % (0.0-8.0); NEUTROPHILS ABSOLUTE AUTO 2.58 K/uL (1.80-7.70); NEUTROPHILS PERCENT AUTO 39.5 % (41.0-71.0); PLATELET COUNT,PLT 83 K/uL (150-400); RED BLOOD CELL COUNT 4.54 M/uL (4.10-5.30); WHITE BLOOD CELL COUNT,WBC 6.53 K/uL (3.9-11.3)
[2024-09-19 06:22] LABS: CALCIUM 8.9 mg/dL (8.5-10.1); CARBON DIOXIDE,CO2 28.6 mmol/L (21.0-32.0); CREATININE 0.5 mg/dL (0.6-1.0); EST CRCL DRUG DOSING (CG) 131.01 mL/min; POTASSIUM,K 4.1 mmol/L (3.5-5.1)
[2024-09-19] MEDS: Insulin Aspart 100 Units/ML 3 ML Pen SUBCUT SCH (08:04)
[2024-09-19] MEDS: Pantoprazole 40 MG Tab.CR PO SCH (09:30)
[2024-09-19] MEDS: Sodium Chloride 1 GM Tab PO SCH (09:30)
[2024-09-19] MEDS: Insulin Glargine,Human Rec. Analog 100 Units/ML 3 ML Pen SUBCUT SCH (09:31)
[2024-09-19] MEDS: Metoprolol Succinate 25 MG Tab.ER PO SCH (09:32)
[2024-09-19] MEDS: Divalproex Sodium Delayed-Release 250 MG Tab.CR PO SCH ×2 (11:02→12:02)
[2024-09-19] MEDS: Ferrous Sulfate 325 MG Tab PO SCH (12:02)
[2024-09-19] MEDS: Acetaminophen/HYDROcodone 325-5 MG Tab PO PRN (15:47)
[2024-09-19] MEDS: Bisacodyl 10 MG Supp RECTAL PRN (21:17)
[2024-09-20 06:06] LABS: BASOPHILS ABSOLUTE AUTO 0.04 K/uL (0.00-0.20); BASOPHILS PERCENT AUTO 0.7 % (0.0-1.0); EOSINOPHILS ABSOLUTE AUTO 0.09 K/uL (0.00-0.45); EOSINOPHILS PERCENT AUTO 1.5 % (0.0-6.0); HEMATOCRIT 37.7 % (37.0-47.0); HEMOGLOBIN 12.7 g/dL (12.0-16.0); IMMATURE GRAN ABSOLUTE AUTO 0.03 K/uL (0.00-0.05); IMMATURE GRAN PERCENT AUTO 0.5 % (0.0-0.4); LYMPHOCYTES ABSOLUTE AUTO 1.69 K/uL (1.00-4.80); LYMPHOCYTES PERCENT AUTO 27.8 % (24.0-44.0); MEAN CORPUSCULAR HEMOGLOBIN 31.9 pg (28.0-32.0); MEAN CORPUSCULAR HGB CONC 33.7 g/dL (32.0-36.0); MEAN CORPUSCULAR VOLUME 94.7 fL (83.0-99.0); MEAN PLATELET VOLUME 9.4 fL (9.4-12.3); MONOCYTES ABSOLUTE AUTO 0.99 K/uL (0.00-0.80); MONOCYTES PERCENT AUTO 16.3 % (0.0-8.0); NEUTROPHILS ABSOLUTE AUTO 3.25 K/uL (1.80-7.70); NEUTROPHILS PERCENT AUTO 53.2 % (41.0-71.0); PLATELET COUNT,PLT 89 K/uL (150-400); RED BLOOD CELL COUNT 3.98 M/uL (4.10-5.30); WHITE BLOOD CELL COUNT,WBC 6.09 K/uL (3.9-11.3)
[2024-09-20 06:41] LABS: A/G RATIO 0.6 (0.9-1.6); ALBUMIN 2.3 g/dL (3.4-5.0); BILIRUBIN TOTAL 1.4 mg/dL (0.2-1.0); CALCIUM 8.4 mg/dL (8.5-10.1); CARBON DIOXIDE,CO2 25.6 mmol/L (21.0-32.0); CREATININE 0.6 mg/dL (0.6-1.0); EST CRCL DRUG DOSING (CG) 109.17 mL/min; MAGNESIUM 1.5 mg/dL (1.8-2.4); PROTEIN TOTAL,TP 5.9 g/dL (6.4-8.2)
[2024-09-20] MEDS ORDERED: Non-Formulary Medication 1 Each (Magnesium Oxide [Magnesium] 400 MG Tablet) PO SCH (09:00)
[2024-09-20 11:52] VITALS: BP 133/82; PULSE 99
[2024-09-20] MEDS ORDERED: Magnesium Oxide 400 MG Tab PO ONE (14:00)
== END 2024-09-20 13:00 | disposition home or self-care (01) | DRG 393 ==
LOC: MW.ED 11:43 → MW.MS 17:38 → OBSVTOIN 17:38
PROVIDERS: ADMIT Internal Medicine; ATTEND Internal Medicine
DX: K63.89 Other specified diseases of intestine (principal); G80.0 Spastic quadriplegic cerebral palsy; T83.510A Infection and inflammatory reaction due to cystostomy catheter, initial encounter; N39.0 Urinary tract infection, site not specified; E87.20 Acidosis, unspecified; Z68.38 Body mass index [BMI] 38.0-38.9, adult; H91.90 Unspecified hearing loss, unspecified ear; I10 Essential (primary) hypertension; G89.29 Other chronic pain; M54.9 Dorsalgia, unspecified; E86.0 Dehydration; M19.90 Unspecified osteoarthritis, unspecified site; S14.101S Unspecified injury at C1 level of cervical spinal cord, sequela; G43.909 Migraine, unspecified, not intractable, without status migrainosus; G62.9 Polyneuropathy, unspecified; I48.91 Unspecified atrial fibrillation; F32.A Depression, unspecified; E66.9 Obesity, unspecified; Z98.891 History of uterine scar from previous surgery; Z88.8 Allergy status to other drugs, medicaments and biological substances; Z96.649 Presence of unspecified artificial hip joint; Z79.899 Other long term (current) drug therapy; Z88.2 Allergy status to sulfonamides; Z98.890 Other specified postprocedural states; Z88.0 Allergy status to penicillin; Z88.1 Allergy status to other antibiotic agents; Z88.5 Allergy status to narcotic agent; Z88.6 Allergy status to analgesic agent
CPT/HCPCS: 36415; 71045; 74177; 80053; 81001; 83605; 83690; 83735; 85025; 87040 ×2; 87086; 96361; 96365; 99285; J0457; J7030; Q9967; 80048; 82947; 87088; 87181; 87186; 96367; 96372; 96376; 99222; 99232; 99239; A9270-GY; G0378; J1650; J1815-GY; J2185

== ENCOUNTER 2024-11-02 14:36 | Emergency (ER) | payer MEDICAID ==
[2024-11-02 15:07] VITALS: BP 135/56; PULSE 88
== END 2024-11-02 16:46 | disposition left against medical advice (07) ==
LOC: MW.ED 14:36
DX: Z53.21 Procedure and treatment not carried out due to patient leaving prior to being seen by health care provider (principal)

== ENCOUNTER 2024-11-21 18:12 | Emergency (ER) | payer MEDICAID ==
[2024-11-21 18:31] VITALS: BP 109/66
[2024-11-21 19:14] LABS: HEMATOCRIT 43.6 % (37.0-47.0); HEMOGLOBIN 14.2 g/dL (12.0-16.0); MEAN CORPUSCULAR HEMOGLOBIN 31.1 pg (28.0-32.0); MEAN CORPUSCULAR HGB CONC 32.6 g/dL (32.0-36.0); MEAN CORPUSCULAR VOLUME 95.6 fL (83.0-99.0); MEAN PLATELET VOLUME 9.7 fL (9.4-12.3); PLATELET COUNT,PLT 82 K/uL (150-400); RED BLOOD CELL COUNT 4.56 M/uL (4.10-5.30); WHITE BLOOD CELL COUNT,WBC 5.49 K/uL (3.9-11.3)
[2024-11-21 19:28] LABS: CALCIUM 9.2 mg/dL (8.5-10.1); CARBON DIOXIDE,CO2 33.1 mmol/L (21.0-32.0); CREATININE 0.7 mg/dL (0.6-1.0); EST CRCL DRUG DOSING (CG) 74.72 mL/min; POTASSIUM,K 4.3 mmol/L (3.5-5.1)
[2024-11-21 19:36] LABS: APPEARANCE,URINE CLOUDY; BILIRUBIN,URINE NEGATIVE (NEGATIVE); COLOR,URINE YELLOW; GLUCOSE,URINE NEGATIVE (NEGATIVE); KETONES,URINE NEGATIVE (NEGATIVE); LEUKOCYTE ESTERASE,URINE LARGE (NEGATIVE); NITRITE,URINE NEGATIVE (NEGATIVE); OCCULT BLOOD,URINE SMALL (NEGATIVE); PROTEIN,URINE 30 mg/dL (NEGATIVE)
[2024-11-21 19:46] LABS: BACTERIA,URINE 1+ (NEGATIVE); EPITHELIAL CELLS,URINE FEW (NONE-FEW); WBC,URINE TOO NUMEROUS TO CT (0-5/HPF)
[2024-11-21 20:25] VITALS: PULSE 82
== END 2024-11-21 20:57 | disposition home or self-care (01) ==
LOC: MW.ED 18:12
DX: T83.510A Infection and inflammatory reaction due to cystostomy catheter, initial encounter (principal); N39.0 Urinary tract infection, site not specified; I10 Essential (primary) hypertension; E11.9 Type 2 diabetes mellitus without complications; E66.9 Obesity, unspecified; Z68.41 Body mass index [BMI] 40.0-44.9, adult; Z88.8 Allergy status to other drugs, medicaments and biological substances; Z88.0 Allergy status to penicillin; Z88.5 Allergy status to narcotic agent; Z79.899 Other long term (current) drug therapy; Z79.4 Long term (current) use of insulin
CPT/HCPCS: 36415; 80048; 81001; 85027; 99283; 99285

== ENCOUNTER 2025-02-18 02:06 | Inpatient (IN) | payer MEDICAID ==
[2025-02-18] MEDS ORDERED: Sodium Chloride 0.9% 10 ML Syringe FLUSH PRN ×2 (02:16→07:21)
[2025-02-18] MEDS ORDERED: Sodium Chloride 0.9% 2.5 ML Syringe FLUSH PRN ×2 (02:16→07:21)
[2025-02-18 02:20] LABS: BASOPHILS ABSOLUTE AUTO 0.04 K/uL (0.00-0.20); BASOPHILS PERCENT AUTO 0.7 % (0.0-1.0); EOSINOPHILS ABSOLUTE AUTO 0.09 K/uL (0.00-0.45); EOSINOPHILS PERCENT AUTO 1.5 % (0.0-6.0); IMMATURE GRAN ABSOLUTE AUTO 0.02 K/uL (0.00-0.05); IMMATURE GRAN PERCENT AUTO 0.3 % (0.0-0.4); LYMPHOCYTES ABSOLUTE AUTO 1.82 K/uL (1.00-4.80); LYMPHOCYTES PERCENT AUTO 29.6 % (24.0-44.0); MEAN PLATELET VOLUME 9.1 fL (9.4-12.3); MONOCYTES ABSOLUTE AUTO 0.82 K/uL (0.00-0.80); MONOCYTES PERCENT AUTO 13.4 % (0.0-8.0); NEUTROPHILS ABSOLUTE AUTO 3.35 K/uL (1.80-7.70); NEUTROPHILS PERCENT AUTO 54.5 % (41.0-71.0); NRBC ABSOLUTE 0.00 K/uL (0.00-0.02); NRBC PERCENT 0.0 /100WBC (0.0-0.2); RED BLOOD CELL COUNT 4.30 M/uL (4.10-5.30); WHITE BLOOD CELL COUNT,WBC 6.14 K/uL (3.9-11.3)
[2025-02-18 02:51] LABS: A/G RATIO 0.7 (0.9-1.6); ALANINE AMINOTRANSFERASE,ALT 19.0 IU/L (14-63); ASPARTATE AMNIOTRANSFERASE,AST 26.0 IU/L (15-37); BILIRUBIN TOTAL 0.8 mg/dL (0.2-1.0); BLOOD UREA NITROGEN,BUN 14.0 mg/dL (7.0-18.0); CARBON DIOXIDE,CO2 27.6 mmol/L (21.0-32.0); CHLORIDE,CL 89.0 mmol/L (98-107); CREATININE 0.7 mg/dL (0.6-1.0); EST CRCL DRUG DOSING (CG) 86.21 mL/min; GLUCOSE RANDOM 130.0 mg/dL (74-106); POTASSIUM,K 4.4 mmol/L (3.5-5.1); PROTEIN TOTAL,TP 6.8 g/dL (6.4-8.2); SODIUM,NA 126.0 mmol/L (136-145)
[2025-02-18 02:52] LABS: ESTIMATED GFR 99.0 mL/min (>60)
[2025-02-18 02:56] LABS: PRO B-TYPE NATRIUR PEPT,BNPPRO 166 pg/mL (0-125)
[2025-02-18 02:57] LABS: HCG QUANTITATIVE < 1.0 mIU/mL; PLATELET COUNT,PLT 169
[2025-02-18] MEDS: Iopamidol 755 MG/ML 500 ML Multipack Bottle IVPUSH ONE (04:40)
[2025-02-18] MEDS ORDERED: 50% Dextrose in Water 50 ML Syringe IVPUSH PRN (07:35)
[2025-02-18] MEDS: Acetaminophen/HYDROcodone 325-10 MG Tab PO PRN (09:02)
[2025-02-18] MEDS: cefTRIAXone 2 GM in Water For Injection, Sterile 20 ML IVPUSH SCH (09:39)
[2025-02-18] MEDS: Ondansetron 4 MG Tab.DIS PO PRN (09:45)
[2025-02-18 11:02] LABS: GLUCOSE,URINE NEGATIVE (NEGATIVE); OCCULT BLOOD,URINE SMALL (NEGATIVE)
[2025-02-18 11:15] LABS: APPEARANCE,URINE HAZY
[2025-02-18 11:17] LABS: EPITHELIAL CELLS,URINE FEW (NONE-FEW)
[2025-02-18] MEDS: metroNIDAZOLE/Normal Saline 500 MG in Premix Bag 1 BAG IV SCH (11:26)
[2025-02-18] MEDS: VANCOmycin 2 GM/400 ML 2 GM in Premix Bag 1 BAG IV ONE (12:27)
[2025-02-18 13:01] LABS: BASE EXCESS ARTERIAL 2.0 (-2.0-3.0); BICARBONATE,ARTERIAL 26 mEq/L (21-28); PCO2 ARTERIAL 36 mmHG (35-45); PO2 ARTERIAL 63 mmHG (83-108)
[2025-02-18] MEDS: Divalproex Sodium Delayed-Release 250 MG Tab.CR PO SCH (13:01)
[2025-02-18] MEDS: Lurasidone Hcl [Latuda] 120 MG Tablet PO SCH (21:52)
[2025-02-18 23:19] LABS: BLOOD UREA NITROGEN,BUN 8.0 mg/dL (7.0-18.0); CARBON DIOXIDE,CO2 25.4 mmol/L (21.0-32.0); CHLORIDE,CL 92.0 mmol/L (98-107); CREATININE 0.6 mg/dL (0.6-1.0); EST CRCL DRUG DOSING (CG) 100.58 mL/min; GLUCOSE RANDOM 158.0 mg/dL (74-106); POTASSIUM,K 4.3 mmol/L (3.5-5.1); SODIUM,NA 126.0 mmol/L (136-145)
[2025-02-18 23:21] LABS: ESTIMATED GFR 103.0 mL/min (>60)
[2025-02-19 06:00] LABS: BASOPHILS ABSOLUTE AUTO 0.03 K/uL (0.00-0.20); BASOPHILS PERCENT AUTO 0.4 % (0.0-1.0); EOSINOPHILS ABSOLUTE AUTO 0.08 K/uL (0.00-0.45); EOSINOPHILS PERCENT AUTO 1.1 % (0.0-6.0); IMMATURE GRAN ABSOLUTE AUTO 0.03 K/uL (0.00-0.05); IMMATURE GRAN PERCENT AUTO 0.4 % (0.0-0.4); LYMPHOCYTES ABSOLUTE AUTO 1.27 K/uL (1.00-4.80); LYMPHOCYTES PERCENT AUTO 17.4 % (24.0-44.0); MEAN PLATELET VOLUME 9.2 fL (9.4-12.3); MONOCYTES ABSOLUTE AUTO 0.88 K/uL (0.00-0.80); MONOCYTES PERCENT AUTO 12.1 % (0.0-8.0); NEUTROPHILS ABSOLUTE AUTO 5.01 K/uL (1.80-7.70); NEUTROPHILS PERCENT AUTO 68.6 % (41.0-71.0); NRBC ABSOLUTE 0.00 K/uL (0.00-0.02); NRBC PERCENT 0.0 /100WBC (0.0-0.2); PLATELET COUNT,PLT 66 K/uL (150-400); RED BLOOD CELL COUNT 3.91 M/uL (4.10-5.30); WHITE BLOOD CELL COUNT,WBC 7.30 K/uL (3.9-11.3)
[2025-02-19 06:33] LABS: A/G RATIO 0.6 (0.9-1.6); ALANINE AMINOTRANSFERASE,ALT 18.0 IU/L (14-63); ASPARTATE AMNIOTRANSFERASE,AST 22.0 IU/L (15-37); BILIRUBIN TOTAL 0.7 mg/dL (0.2-1.0); BLOOD UREA NITROGEN,BUN 11.0 mg/dL (7.0-18.0); CARBON DIOXIDE,CO2 28.2 mmol/L (21.0-32.0); CHLORIDE,CL 94.0 mmol/L (98-107); CREATININE 0.5 mg/dL (0.6-1.0); EST CRCL DRUG DOSING (CG) 120.7 mL/min; GLUCOSE RANDOM 121.0 mg/dL (74-106); PHOSPHORUS 3.2 mg/dL (2.6-4.7); POTASSIUM,K 4.5 mmol/L (3.5-5.1); PROTEIN TOTAL,TP 5.9 g/dL (6.4-8.2); SODIUM,NA 130.0 mmol/L (136-145)
[2025-02-19 06:36] LABS: ESTIMATED GFR 107.0 mL/min (>60)
[2025-02-19] MEDS: Magnesium Sulfate 2 GM/50 mL 2 GM in Premix Bag 1 BAG IV ONE (09:49)
[2025-02-19 16:02] VITALS: BP 122/56; PULSE 103
== END 2025-02-19 16:15 | DRG 640 ==
LOC: MW.ED 02:06 → MW.ICU 06:29 → OBSVTOIN 20:50 → MW.MS 02-19 10:43
PROVIDERS: ADMIT Internal Medicine; ATTEND Internal Medicine
DX: E87.1 Hypo-osmolality and hyponatremia (principal); R91.8 Other nonspecific abnormal finding of lung field; G82.50 Quadriplegia, unspecified; J44.1 Chronic obstructive pulmonary disease with (acute) exacerbation; H91.90 Unspecified hearing loss, unspecified ear; E11.9 Type 2 diabetes mellitus without complications; I10 Essential (primary) hypertension; K59.09 Other constipation; G89.29 Other chronic pain; Z88.8 Allergy status to other drugs, medicaments and biological substances; M54.9 Dorsalgia, unspecified; M19.90 Unspecified osteoarthritis, unspecified site; G43.909 Migraine, unspecified, not intractable, without status migrainosus; E11.42 Type 2 diabetes mellitus with diabetic polyneuropathy; E87.8 Other disorders of electrolyte and fluid balance, not elsewhere classified; F41.9 Anxiety disorder, unspecified; E86.0 Dehydration; K74.60 Unspecified cirrhosis of liver; F32.A Depression, unspecified; E66.9 Obesity, unspecified; Z88.6 Allergy status to analgesic agent; Z88.1 Allergy status to other antibiotic agents; Z88.0 Allergy status to penicillin; Z88.2 Allergy status to sulfonamides; Z79.899 Other long term (current) drug therapy; Z79.84 Long term (current) use of oral hypoglycemic drugs; Z79.4 Long term (current) use of insulin; Z90.89 Acquired absence of other organs; Z98.890 Other specified postprocedural states; Z68.39 Body mass index [BMI] 39.0-39.9, adult
CPT/HCPCS: 36415; 36600 ×2; 51702; 71045; 71275; 74176; 80053; 81001; 82803; 82947 ×2; 83605 ×5; 83880; 84484; 84702; 85025; 87040 ×2; 87086; 93005; 96360; 96361; 99285; A4216; A9270 ×9; J0692; J0696; J1836; J3375; J7030 ×5; J7050; Q9967; 80048; 80202; 83735; 84100; 87088; 87186; 87641; 93010; 96365; 96367; 96375; 99284; G0378; J0456; J3374; J3475

== ENCOUNTER 2025-04-20 10:25 | Inpatient (IN) | payer MEDICAID ==
[2025-04-20] MEDS ORDERED: Sodium Chloride 0.9% 10 ML Syringe FLUSH PRN (10:39)
[2025-04-20] MEDS ORDERED: Sodium Chloride 0.9% 2.5 ML Syringe FLUSH PRN (10:39)
[2025-04-20 11:17] LABS: BASOPHILS ABSOLUTE AUTO 0.04 K/uL (0.00-0.20); BASOPHILS PERCENT AUTO 0.7 % (0.0-1.0); EOSINOPHILS ABSOLUTE AUTO 0.13 K/uL (0.00-0.45); EOSINOPHILS PERCENT AUTO 2.4 % (0.0-6.0); IMMATURE GRAN ABSOLUTE AUTO 0.01 K/uL (0.00-0.05); IMMATURE GRAN PERCENT AUTO 0.2 % (0.0-0.4); LYMPHOCYTES ABSOLUTE AUTO 1.51 K/uL (1.00-4.80); LYMPHOCYTES PERCENT AUTO 27.9 % (24.0-44.0); MEAN PLATELET VOLUME 9.2 fL (9.4-12.3); MONOCYTES ABSOLUTE AUTO 0.73 K/uL (0.00-0.80); MONOCYTES PERCENT AUTO 13.5 % (0.0-8.0); NEUTROPHILS ABSOLUTE AUTO 2.99 K/uL (1.80-7.70); NEUTROPHILS PERCENT AUTO 55.3 % (41.0-71.0); NRBC ABSOLUTE 0.00 K/uL (0.00-0.02); NRBC PERCENT 0.0 /100WBC (0.0-0.2); PLATELET COUNT,PLT 70 K/uL (150-400); RED BLOOD CELL COUNT 4.41 M/uL (4.10-5.30); WHITE BLOOD CELL COUNT,WBC 5.41 K/uL (3.9-11.3)
[2025-04-20 11:37] LABS: A/G RATIO 0.7 (0.9-1.6); ALANINE AMINOTRANSFERASE,ALT 28.0 IU/L (14-63); ASPARTATE AMNIOTRANSFERASE,AST 34.0 IU/L (15-37); BILIRUBIN TOTAL 0.5 mg/dL (0.2-1.0); BLOOD UREA NITROGEN,BUN 11.0 mg/dL (7.0-18.0); CARBON DIOXIDE,CO2 26.8 mmol/L (21.0-32.0); CHLORIDE,CL 105.0 mmol/L (98-107); CREATININE 0.6 mg/dL (0.6-1.0); EST CRCL DRUG DOSING (CG) 93.34 mL/min; GLUCOSE RANDOM 171.0 mg/dL (74-106); POTASSIUM,K 3.7 mmol/L (3.5-5.1); PROTEIN TOTAL,TP 6.9 g/dL (6.4-8.2); SODIUM,NA 143.0 mmol/L (136-145)
[2025-04-20 11:42] LABS: ESTIMATED GFR 103.0 mL/min (>60); LACTIC ACID 5.2 mmol/L (0.4-2.0)
[2025-04-20 13:12] LABS: APPEARANCE,URINE CLEAR; GLUCOSE,URINE NEGATIVE (NEGATIVE); OCCULT BLOOD,URINE NEGATIVE (NEGATIVE)
[2025-04-20 13:47] LABS: EPITHELIAL CELLS,URINE FEW (NONE-FEW)
[2025-04-20] MEDS ORDERED: Thiamine 200 MG/2 ML MDV IVPUSH ONE (14:45)
[2025-04-20] MEDS ORDERED: Thiamine 200 MG/2 ML MDV IVPUSH SCH (14:45)
[2025-04-20] MEDS: Iopamidol 755 Mg/ML 100 ML Bottle IVPUSH ONE (15:22)
[2025-04-20] MEDS: Thiamine 200 MG/2 ML MDV IVPUSH ONE (15:24)
[2025-04-20] MEDS ORDERED: 50% Dextrose in Water 50 ML Syringe IVPUSH PRN ×2 (20:11→20:39)
[2025-04-20] MEDS ORDERED: Ondansetron 4 MG/2 ML SDV IVPUSH PRN (20:26)
[2025-04-20] MEDS ORDERED: Ondansetron 4 MG Tab.DIS PO PRN (20:26)
[2025-04-20] MEDS ORDERED: GENTAMICIN 40 MG/ML SCH (20:45)
[2025-04-20] MEDS ORDERED: Polyvinyl Alcohol 1.4% Ophth Soln 15 ML Bottle EYEBOTH PRN (22:32)
[2025-04-20] MEDS: Divalproex Sodium Delayed-Release 250 MG Tab.CR PO SCH (22:40)
[2025-04-20] MEDS: Insulin Glargine,Human Rec. Analog 100 Units/ML 3 ML Pen SUBCUT SCH (22:43)
[2025-04-21 00:12] LABS: BLOOD UREA NITROGEN,BUN 9.0 mg/dL (7.0-18.0); CARBON DIOXIDE,CO2 24.7 mmol/L (21.0-32.0); CHLORIDE,CL 107.0 mmol/L (98-107); CREATININE 0.6 mg/dL (0.6-1.0); EST CRCL DRUG DOSING (CG) 93.34 mL/min; GLUCOSE RANDOM 177.0 mg/dL (74-106); POTASSIUM,K 3.9 mmol/L (3.5-5.1); SODIUM,NA 142.0 mmol/L (136-145)
[2025-04-21 00:13] LABS: ESTIMATED GFR 103.0 mL/min (>60)
[2025-04-21 04:23] LABS: BASOPHILS ABSOLUTE AUTO 0.03 K/uL (0.00-0.20); BASOPHILS PERCENT AUTO 0.5 % (0.0-1.0); EOSINOPHILS ABSOLUTE AUTO 0.12 K/uL (0.00-0.45); EOSINOPHILS PERCENT AUTO 1.9 % (0.0-6.0); IMMATURE GRAN ABSOLUTE AUTO 0.01 K/uL (0.00-0.05); IMMATURE GRAN PERCENT AUTO 0.2 % (0.0-0.4); LYMPHOCYTES ABSOLUTE AUTO 1.42 K/uL (1.00-4.80); LYMPHOCYTES PERCENT AUTO 22.5 % (24.0-44.0); MEAN PLATELET VOLUME 9.2 fL (9.4-12.3); MONOCYTES ABSOLUTE AUTO 0.68 K/uL (0.00-0.80); MONOCYTES PERCENT AUTO 10.8 % (0.0-8.0); NEUTROPHILS ABSOLUTE AUTO 4.06 K/uL (1.80-7.70); NEUTROPHILS PERCENT AUTO 64.1 % (41.0-71.0); NRBC ABSOLUTE 0.00 K/uL (0.00-0.02); NRBC PERCENT 0.0 /100WBC (0.0-0.2); PLATELET COUNT,PLT 69 K/uL (150-400); RED BLOOD CELL COUNT 4.14 M/uL (4.10-5.30); WHITE BLOOD CELL COUNT,WBC 6.32 K/uL (3.9-11.3)
[2025-04-21 04:47] LABS: A/G RATIO 0.7 (0.9-1.6); ALANINE AMINOTRANSFERASE,ALT 23.0 IU/L (14-63); ASPARTATE AMNIOTRANSFERASE,AST 30.0 IU/L (15-37); BILIRUBIN TOTAL 0.6 mg/dL (0.2-1.0); BLOOD UREA NITROGEN,BUN 9.0 mg/dL (7.0-18.0); CARBON DIOXIDE,CO2 28.0 mmol/L (21.0-32.0); CHLORIDE,CL 107.0 mmol/L (98-107); CREATININE 0.5 mg/dL (0.6-1.0); EST CRCL DRUG DOSING (CG) 112.01 mL/min; GLUCOSE RANDOM 116.0 mg/dL (74-106); PHOSPHORUS 4.1 mg/dL (2.6-4.7); POTASSIUM,K 4.0 mmol/L (3.5-5.1); PROTEIN TOTAL,TP 6.7 g/dL (6.4-8.2); SODIUM,NA 144.0 mmol/L (136-145)
[2025-04-21 04:52] LABS: ESTIMATED GFR 107.0 mL/min (>60)
[2025-04-21] MEDS ORDERED: Non-Formulary Medication 1 Each (Baclofen [Baclofen] 5 MG Tablet) PO SCH (06:00)
[2025-04-21] MEDS: Sennosides/Docusate Sodium 50-8.6 MG Tab PO SCH (09:56)
[2025-04-21 11:05] LABS: LACTIC ACID 2.1 mmol/L (0.4-2.0)
[2025-04-21] MEDS: Linezolid 600 MG/300 ML 600 MG in Premix Bag 1 BAG IV SCH (11:17)
[2025-04-21] MEDS: Acetaminophen/HYDROcodone 325-10 MG Tab PO PRN (13:11)
[2025-04-21 17:29] LABS: BASOPHILS ABSOLUTE AUTO 0.04 K/uL (0.00-0.20); BASOPHILS PERCENT AUTO 0.6 % (0.0-1.0); EOSINOPHILS ABSOLUTE AUTO 0.08 K/uL (0.00-0.45); EOSINOPHILS PERCENT AUTO 1.3 % (0.0-6.0); IMMATURE GRAN ABSOLUTE AUTO 0.01 K/uL (0.00-0.05); IMMATURE GRAN PERCENT AUTO 0.2 % (0.0-0.4); LYMPHOCYTES ABSOLUTE AUTO 2.03 K/uL (1.00-4.80); LYMPHOCYTES PERCENT AUTO 32.7 % (24.0-44.0); MEAN PLATELET VOLUME 9.1 fL (9.4-12.3); MONOCYTES ABSOLUTE AUTO 0.74 K/uL (0.00-0.80); MONOCYTES PERCENT AUTO 11.9 % (0.0-8.0); NEUTROPHILS ABSOLUTE AUTO 3.31 K/uL (1.80-7.70); NEUTROPHILS PERCENT AUTO 53.3 % (41.0-71.0); NRBC ABSOLUTE 0.00 K/uL (0.00-0.02); NRBC PERCENT 0.0 /100WBC (0.0-0.2); PLATELET COUNT,PLT 74 K/uL (150-400); RED BLOOD CELL COUNT 3.95 M/uL (4.10-5.30); WHITE BLOOD CELL COUNT,WBC 6.21 K/uL (3.9-11.3)
[2025-04-21 17:45] LABS: BLOOD UREA NITROGEN,BUN 9.0 mg/dL (7.0-18.0); CARBON DIOXIDE,CO2 27.2 mmol/L (21.0-32.0); CHLORIDE,CL 105.0 mmol/L (98-107); CREATININE 0.5 mg/dL (0.6-1.0); EST CRCL DRUG DOSING (CG) 112.01 mL/min; ESTIMATED GFR 107.0 mL/min (>60); GLUCOSE RANDOM 144.0 mg/dL (74-106); POTASSIUM,K 4.1 mmol/L (3.5-5.1); SODIUM,NA 138.0 mmol/L (136-145)
[2025-04-21] MEDS: LURASIDONE HCL 120 MG PO SCH (22:11)
[2025-04-22 06:11] LABS: BASOPHILS ABSOLUTE AUTO 0.03 K/uL (0.00-0.20); BASOPHILS PERCENT AUTO 0.5 % (0.0-1.0); EOSINOPHILS ABSOLUTE AUTO 0.17 K/uL (0.00-0.45); EOSINOPHILS PERCENT AUTO 2.9 % (0.0-6.0); IMMATURE GRAN ABSOLUTE AUTO 0.02 K/uL (0.00-0.05); IMMATURE GRAN PERCENT AUTO 0.3 % (0.0-0.4); LYMPHOCYTES ABSOLUTE AUTO 1.80 K/uL (1.00-4.80); LYMPHOCYTES PERCENT AUTO 30.3 % (24.0-44.0); MEAN PLATELET VOLUME 8.7 fL (9.4-12.3); MONOCYTES ABSOLUTE AUTO 0.69 K/uL (0.00-0.80); MONOCYTES PERCENT AUTO 11.6 % (0.0-8.0); NEUTROPHILS ABSOLUTE AUTO 3.23 K/uL (1.80-7.70); NEUTROPHILS PERCENT AUTO 54.4 % (41.0-71.0); NRBC ABSOLUTE 0.00 K/uL (0.00-0.02); NRBC PERCENT 0.0 /100WBC (0.0-0.2); PLATELET COUNT,PLT 60 K/uL (150-400); RED BLOOD CELL COUNT 3.88 M/uL (4.10-5.30); WHITE BLOOD CELL COUNT,WBC 5.94 K/uL (3.9-11.3)
[2025-04-22 06:31] LABS: BLOOD UREA NITROGEN,BUN 11.0 mg/dL (7.0-18.0); CARBON DIOXIDE,CO2 26.8 mmol/L (21.0-32.0); CHLORIDE,CL 105.0 mmol/L (98-107); CREATININE 0.4 mg/dL (0.6-1.0); EST CRCL DRUG DOSING (CG) 140.01 mL/min; GLUCOSE RANDOM 112.0 mg/dL (74-106); POTASSIUM,K 4.3 mmol/L (3.5-5.1); SODIUM,NA 140.0 mmol/L (136-145)
[2025-04-22 06:32] LABS: ESTIMATED GFR 113.0 mL/min (>60)
[2025-04-22] MEDS: Hydrocortisone Sodium Succinate 100 MG/2 ML SDV IVPUSH SCH (14:17)
[2025-04-22] MEDS ORDERED: Nitrofurantoin Monohydrate/Macrocrystalline 100 MG Cap PO SCH (21:00)
[2025-04-23 06:18] LABS: BASOPHILS ABSOLUTE AUTO 0.02 K/uL (0.00-0.20); BASOPHILS PERCENT AUTO 0.4 % (0.0-1.0); EOSINOPHILS ABSOLUTE AUTO 0.01 K/uL (0.00-0.45); EOSINOPHILS PERCENT AUTO 0.2 % (0.0-6.0); IMMATURE GRAN ABSOLUTE AUTO 0.02 K/uL (0.00-0.05); IMMATURE GRAN PERCENT AUTO 0.4 % (0.0-0.4); LYMPHOCYTES ABSOLUTE AUTO 0.73 K/uL (1.00-4.80); LYMPHOCYTES PERCENT AUTO 13.7 % (24.0-44.0); MEAN PLATELET VOLUME 9.0 fL (9.4-12.3); MONOCYTES ABSOLUTE AUTO 0.28 K/uL (0.00-0.80); MONOCYTES PERCENT AUTO 5.2 % (0.0-8.0); NEUTROPHILS ABSOLUTE AUTO 4.28 K/uL (1.80-7.70); NEUTROPHILS PERCENT AUTO 80.1 % (41.0-71.0); NRBC ABSOLUTE 0.00 K/uL (0.00-0.02); NRBC PERCENT 0.0 /100WBC (0.0-0.2); RED BLOOD CELL COUNT 4.07 M/uL (4.10-5.30); WHITE BLOOD CELL COUNT,WBC 5.34 K/uL (3.9-11.3)
[2025-04-23 06:26] LABS: BLOOD UREA NITROGEN,BUN 11.0 mg/dL (7.0-18.0); CARBON DIOXIDE,CO2 26.1 mmol/L (21.0-32.0); CHLORIDE,CL 101.0 mmol/L (98-107); CREATININE 0.5 mg/dL (0.6-1.0); EST CRCL DRUG DOSING (CG) 112.01 mL/min; GLUCOSE RANDOM 152.0 mg/dL (74-106); POTASSIUM,K 3.7 mmol/L (3.5-5.1); SODIUM,NA 135.0 mmol/L (136-145)
[2025-04-23 06:29] LABS: ESTIMATED GFR 107.0 mL/min (>60)
[2025-04-23 06:34] LABS: PLATELET COUNT,PLT 72 K/uL (150-400)
[2025-04-23 11:14] VITALS: BP 139/60; PULSE 73
[2025-04-23] MEDS ORDERED: Hydrocortisone Sodium Succinate 100 MG/2 ML SDV IVPUSH SCH (13:00)
== END 2025-04-23 11:15 | disposition home or self-care (01) | DRG 640 ==
LOC: MW.ED 10:25 → MW.MS 18:19 → EEVIPCON 18:19
PROVIDERS: ADMIT Family Medicine; ATTEND Family Medicine
DX: E86.0 Dehydration (principal); G82.50 Quadriplegia, unspecified; Z68.41 Body mass index [BMI] 40.0-44.9, adult; G82.20 Paraplegia, unspecified; E87.20 Acidosis, unspecified; I48.91 Unspecified atrial fibrillation; H91.90 Unspecified hearing loss, unspecified ear; I10 Essential (primary) hypertension; J44.9 Chronic obstructive pulmonary disease, unspecified; K59.00 Constipation, unspecified; M54.9 Dorsalgia, unspecified; G89.29 Other chronic pain; N31.9 Neuromuscular dysfunction of bladder, unspecified; E87.1 Hypo-osmolality and hyponatremia; Z93.59 Other cystostomy status; M19.90 Unspecified osteoarthritis, unspecified site; G43.909 Migraine, unspecified, not intractable, without status migrainosus; E11.42 Type 2 diabetes mellitus with diabetic polyneuropathy; F41.9 Anxiety disorder, unspecified; F32.A Depression, unspecified; E66.9 Obesity, unspecified; Z90.49 Acquired absence of other specified parts of digestive tract; Z98.890 Other specified postprocedural states; E11.9 Type 2 diabetes mellitus without complications; Z88.6 Allergy status to analgesic agent; Z88.5 Allergy status to narcotic agent; Z88.8 Allergy status to other drugs, medicaments and biological substances; Z88.2 Allergy status to sulfonamides; Z98.891 History of uterine scar from previous surgery; Z79.4 Long term (current) use of insulin; Z88.1 Allergy status to other antibiotic agents; Z79.899 Other long term (current) drug therapy; Z79.84 Long term (current) use of oral hypoglycemic drugs
CPT/HCPCS: 36415; 71045; 71260; 74177; 80053; 81001; 82947; 83605 ×3; 83690; 83735; 84145; 85025; 87040 ×2; 87077; 87086; 87088 ×2; 87154; 87186 ×3; 96361; 96374; 99285; J3411; J7030 ×2; J7040; Q9967; 80048; 84100; A9270-GY; J1580; J1720; J1815-GY; J2020